=== PATIENT | male | born 1955 | race Caucasian/White ===

== ENCOUNTER 2021-01-12 06:54 | Day surgery (SDC) | payer BC, MEDICARE ==
[2021-01-08 09:51] VITALS: BMI 32.3
[2021-01-12 07:17] VITALS: RESP 16; TEMP 97.5
[2021-01-12] MEDS ORDERED: LACTATED RINGERS 1,000 ML IV ONE (07:20)
[2021-01-12] MEDS ORDERED: PROPOFOL 10 MG/ML 20 ML VIAL IV ONE (07:26)
--- NOTE | 2021-01-12 07:56 | P.PCN ---
Date of Procedure: 01/12/21 Description of Procedure: BRIEF HISTORY: Patient is a 65-year-old male presented for outpatient colonoscopy for screening for blood and neoplasm of the colon. Patient reports last colonoscopy approximately 10 years ago. No change in bowel habit, blood per rectum or family history of colon cancer reported. PROCEDURE PERFORMED: Colonoscopy with polypectomy. PREOPERATIVE DIAGNOSIS: . ESTIMATED BLOOD LOSS: Minimal. IV sedation per Anesthesia. PROCEDURE: After informed consent was obtained, the patient, was brought into the endoscopy unit. IV sedation was administered by Anesthesia under continuous monitoring. Digital rectal examination was normal. Initially the Olympus CF-190 flexible video colonoscope was then inserted in the rectum, gradually advanced into the cecum without any difficulty. Careful examination was performed as the scope was gradually being withdrawn. Ileocecal valve and the appendiceal orifice were visualized and appeared normal. Prep was excellent. Mucosa of the cecum, ascending colon, transverse colon, descending colon, sigmoid colon, and rectum appeared normal, except for a diminutive 1 mm rectal polyp removed with cold forcep polypectomy. Retroflexion was performed in the rectum and no lesions were seen, low-grade internal hemorrhoids. The patient tolerated the procedure well. IMPRESSION: Diminutive rectal polyp removed with cold forceps. Internal hemorrhoids. RECOMMENDATIONS: Findings of this examination were discussed with the patient and his family. Okay to resume diet. Okay to resume medications. Await pathology from polypectomy. Recommend repeat colonoscopy in 7 years for polyp, or 10 years if pathology is suggestive of hyperplastic polyp.
[2021-01-12 08:13] VITALS: BP 106/69; PULSE 77
== END 2021-01-12 08:49 | disposition home or self-care (01) ==
LOC: ORWHC2ENDO 06:54
PROVIDERS: ATTEND Internal Medicine
DX: Z12.11 Encounter for screening for malignant neoplasm of colon (principal); K62.1 Rectal polyp; K64.8 Other hemorrhoids; Z87.891 Personal history of nicotine dependence; Z90.89 Acquired absence of other organs; Z98.890 Other specified postprocedural states; Z87.19 Personal history of other diseases of the digestive system; Z97.2 Presence of dental prosthetic device (complete) (partial); Z79.82 Long term (current) use of aspirin; Z79.899 Other long term (current) drug therapy; Z91.09 Other allergy status, other than to drugs and biological substances
CPT/HCPCS: 88305; 45380; J2704

== ENCOUNTER → 2021-03-27 | Outpatient (CLI) | payer MEDICARE ==
--- NOTE | 2021-03-27 15:41 | US ---
EXAMINATION TYPE: US carotid duplex BILAT DATE OF EXAM: 03/27/2021 COMPARISON: NONE CLINICAL HISTORY: R09.89 Other specified symptoms and signs involving. Bruit EXAM MEASUREMENTS: RIGHT: Peak Systolic Velocity (PSV) cm/sec ----- Right CCA: 79.3 ----- Right ICA: 219.8 ----- Right ECA: 173.3 ICA/CCA ratio: 2.8 RIGHT: End Diastole cm/sec ----- Right CCA: 24.1 ----- Right ICA: 64.1 ----- Right ECA: 31.6 LEFT: Peak Systolic Velocity (PSV) cm/sec ----- Left CCA: 126.9 ----- Left ICA: 147.8 ----- Left ECA: 143.1 ICA/CCA ratio: 1.2 LEFT: End Diastole cm/sec ----- Left CCA: 29.3 ----- Left ICA: 50.2 ----- Left ECA: 15.3 VERTEBRALS (direction of flow): Right Vertebral: Antegrade Left Vertebral: Antegrade Rhythm: Normal Bilateral elevated velocities. IMPRESSION: 1. Bilateral atheromatous plaquing contributing to severe stenosis greater than 70%, of the right int ernal carotid artery and moderate stenosis, between 50 and 69%, of left internal carotid artery. NASCET criteria was used in interpretation of this exam? Criteria for Assigning % of Stenosis / Diameter reduction (Estimation based on the indirect measurements of the internal carotid artery velocities (ICA PSV). 1. Normal (no stenosis)=ICA PSV < 125 cm/s: ratio < 2.0: ICA EDV<40 cm/s. 2. Less than 50% stenosis=ICA PSV < 125 cm/s: ratio < 2.0: ICA EDV<40 cm/s. 3. 50 to 69% stenosis=ICA PSV of 125 to 230 cm/s: ration 2.0 ? 4.0: ICA EDV 40-100 cm/s. 4. Greater than 70% stenosis to near occlusion= ICA PSV > 230 cm/s: ratio > 4.0: ICA EDV > 100 cm/s. 5. Near occlusion= ICA PSV velocities may be low or undetectable: variable ratio and ICA EDV. 6. Total occlusion=unable to detect flow.
--- NOTE | 2021-03-27 15:53 | US ---
EXAMINATION TYPE: US duplex aorta DATE OF EXAM: 03/27/2021 COMPARISON: NONE CLINICAL HISTORY: Z13.6 Screening for cardiovascular disorders. AAA screening EXAM MEASUREMENTS: Abdominal Aorta: Proximal: 2.6 x 2.0 cm Mid: 2.3 x 1.8 cm Distal: 1.8 x 1.5 cm Bifurcation: Right: 1.0 cm Left: 1.6 cm. This has some fusiform prominence. IMPRESSION: 1. No abdominal aortic aneurysm by ultrasound. 2. There may be some fusiform prominence of the left common iliac artery
== END | disposition home or self-care (01) ==
LOC: RADUSWWP 14:11
PROVIDERS: ATTEND Family Medicine
DX: Z13.6 Encounter for screening for cardiovascular disorders (principal); I65.23 Occlusion and stenosis of bilateral carotid arteries
CPT/HCPCS: 93880; 93979

== ENCOUNTER → 2021-05-06 | Outpatient (CLI) | payer MEDICARE ==
[2021-05-06 12:09] LABS: African American GFR (CKD) >90 (>60 ml/min/1.73 sqM); Blood Urea Nitrogen 18 mg/dL (9-20); Non-African American GFR(CKD) 86 (>60 ml/min/1.73 sqM)
--- NOTE | 2021-05-06 13:30 | CT ---
EXAMINATION TYPE: CT angio neck DATE OF EXAM: 05/06/2021 HISTORY: Carotid stenosis, abnormal ultrasound COMPARISON: Carotid ultrasound March 27, 2021. CT DLP: 440.0 mGycm. Automated Exposure Control for Dose Reduction was Utilized. TECHNIQUE: CTA scan of the neck is performed with IV Contrast, patient injected with 65 mL of Isovue 370, axial images are obtained, coronal and sagittal reformatted images are reviewed. MIP Images are created on CT scanner and reviewed. 3D reconstructed images are created on an independent workstatio n and reviewed. FINDINGS: Carotid/Vascular Structures: Mild peripheral plaque in the aortic arch. There is a 4 vessel origin fr om aortic arch which is normal variant. No significant stenosis. Normal origin right common carotid a rtery from right brachiocephalic artery. No significant plaque or stenosis along the course of the co mmon carotid arteries bilaterally. The right carotid bulb there is moderate to severe mixed plaque ex tending into proximal internal carotid artery causing stenosis with luminal diameter narrowing to 2.2 mm in image 8 of the reconstruction image and lumen diameter reconstituted to 5.2 mm superior to thi s . Significant stenosis near complete occlusion at origin of right external carotid artery is noted. Remainder of right internal carotid artery shows mild to moderate calcified plaque distally. Mild to moderate peripheral mixed plaque just past carotid bulb and proximal left internal carotid ar марина does not cause significant stenosis. There is patent left external carotid artery without signif icant plaque or stenosis. Mild calcified plaque distally is seen. There is a dominant right vertebral artery. Vertebral arteries are patent to basilar junction. No sig nificant stenosis. Other: Mild to moderate mucosal thickening involving the ethmoid sinuses bilaterally. Tiny dependent fluid in the right sphenoid and left maxillary sinus noted. There is levoconvex scoliosis centered upper to mid thoracic spine. IMPRESSION: No hemodynamically significant stenosis in the left internal carotid artery. Confirmation of hemodynamically significant stenosis in the proximal right internal carotid artery with stenosis measuring up to 60% on CTA Neck study less prominent than suspected on recent ultrasound. NASCET criteria was used in interpretation of this exam?
== END | disposition home or self-care (01) ==
LOC: RADCTMAIN 11:14
PROVIDERS: ATTEND Surgery
DX: I65.23 Occlusion and stenosis of bilateral carotid arteries (principal)
CPT/HCPCS: 82565; 84520; 70498; 36415; Q9967

== ENCOUNTER → 2022-11-30 | Outpatient (CLI) | payer MEDICARE ==
[2022-11-30 16:33] LABS: African American GFR (CKD) >90 (>60 ml/min/1.73 sqM); Blood Urea Nitrogen 15 mg/dL (9-20); Non-African American GFR(CKD) 82 (>60 ml/min/1.73 sqM)
--- NOTE | 2022-11-30 20:46 | CT ---
EXAMINATION TYPE: CT angio neck CT DLP: 452.4 mGycm, Automated exposure control for dose reduction was used. DATE OF EXAM: 11/30/2022 7:47 PM COMPARISON: Ultrasound carotid duplex 03/27/2021, 05/06/2021 CTA Neck. CLINICAL INDICATION:Male, 67 years old with history of I65.29 OCCLUSION AND STENOSIS, R/O occlusion o r stenosis. TECHNIQUE: Axially acquired helical CT angiogram of the head and neck was obtained with contrast. Axi al images are supplemented with 3D reconstructions which [facility] NASCET criteria used. Contrast used:100cc mL of Isovue 300 with IV Contrast, Oral contrast used: None. FINDINGS: CTA HEAD: No evidence of acute intracranial hemorrhage, mass effect, or midline shift. The ventricles, sulci, a nd cisterns are unremarkable. The visualized portions of the internal carotid arteries, middle cerebral arteries, anterior cerebral arteries, and posterior cerebral arteries are patent. Atherosclerosis of the intracranial internal c arotid arteries. No evidence for significant stenosis. The basilar and vertebral arteries are patent. CTA NECK: Right Carotid System: The common carotid and external carotid arteries are patent. There is approximately 50-60% stenosis a t the carotid bifurcation secondary to calcified/noncalcified plaquing. Additionally the proximal por tion of the internal carotid artery is also narrowed up to 50% secondary to noncalcified predominant plaque. The rest of the internal carotid artery is patent. Left Carotid System: The common carotid artery and external carotid artery are patent. The carotid bifurcation demonstrate s no evidence of hemodynamically significant stenosis. Calcified plaque at the internal carotid arter y proximal portion with less than 50% stenosis. The remaining portions of the internal carotid artery demonstrate normal size without significant narrowing. Vertebral arteries are patent without evidence hemodynamically significant stenosis. There is a 4 vessel aortic arch. The left vertebral artery is diminutive. The origin of the right dejan tebral artery is patent. Dominant right vertebral artery and diminutive left. The origins of the grea t vessels are patent. No evidence of hemodynamically significant stenosis. IMPRESSION: 1. No vascular occlusion identified. 2. No evidence of dissection of the cervical internal carotid arteries or vertebral arteries. 3. No evidence of intracranial high-grade stenosis or intracranial aneurysm. 4. Calcified and noncalcified plaque at the right bifurcation and proximal right internal carotid ar марина with 50-60% stenosis. Unchanged from prior on 05/06/2021. 5. Diminutive left vertebral artery originating off the aortic arch extending into the calvarium.
== END | disposition home or self-care (01) ==
LOC: RADCTMAIN 14:49
PROVIDERS: ATTEND Surgery
DX: I65.23 Occlusion and stenosis of bilateral carotid arteries (principal)
CPT/HCPCS: 82565; 84520; 70498; 36415; Q9967

== ENCOUNTER 2023-12-06 10:59 | Inpatient (IN) | payer MEDICARE ==
[2023-12-06 11:22] LABS: Basophils % (A) 0 %; Eosinophils # (A) 0.3 k/uL (0-0.7); Eosinophils % (A) 3 %; HCT 46.5 % (39.0-53.0); HGB 15.7 gm/dL (13.0-17.5); Lymphocytes # (A) 1.7 k/uL (1.0-4.8); Lymphocytes % (A) 17 %; MCH 30.4 pg (25.0-35.0); MCHC 33.8 g/dL (31.0-37.0); Mean Platelet Volume 8.7; Monocytes # (A) 0.6 k/uL (0-1.0); Monocytes % (A) 6 %; Neutrophils # (A) 6.8 k/uL (1.3-7.7); Neutrophils % (A) 71 %; Platelet Count 186 k/uL (150-450); RBC 5.17 m/uL (4.30-5.90); RDW 12.8 % (11.5-15.5); WBC 9.5 k/uL (3.8-10.6)
[2023-12-06 11:42] LABS: Partial Thromboplastin Time 26.8 sec (22.0-30.0); Prothrombin Time 11.1 sec (10.0-12.5)
--- NOTE | 2023-12-06 11:51 | XR ---
EXAMINATION TYPE: XR chest 2V DATE OF EXAM: 12/06/2023 11:38 AM CLINICAL INDICATION:Male, 68 years old with history of Chest Pain; COMPARISON: None TECHNIQUE: XR chest 2V Frontal and lateral views of the chest. FINDINGS: Lungs/Pleura: There is no evidence of pleural effusion, focal consolidation, or pneumothorax. Pulmonary vascularity: Unremarkable. Heart/mediastinum: Cardiomediastinal silhouette is unremarkable. Musculoskeletal: No acute osseous pathology. IMPRESSION: No acute cardiopulmonary disease/process.
[2023-12-06 12:00] LABS: ALT 19 U/L (4-49); AST 31 U/L (17-59); African American GFR (CKD) >90 (>60 ml/min/1.73 sqM); Albumin 4.6 g/dL (3.5-5.0); Alkaline Phosphatase 76 U/L (38-126); Anion Gap 11 mmol/L; Blood Urea Nitrogen 17 mg/dL (9-20); Calcium 9.6 mg/dL (8.4-10.2); Carbon Dioxide 23 mmol/L (22-30); Chloride 108 mmol/L (98-107); Glucose 113 mg/dL (74-99); Magnesium 1.7 mg/dL (1.6-2.3); Non-African American GFR(CKD) 86 (>60 ml/min/1.73 sqM); Potassium 4.3 mmol/L (3.5-5.1); Sodium 142 mmol/L (137-145); Total Bilirubin 0.7 mg/dL (0.2-1.3); Total Protein 7.8 g/dL (6.3-8.2)
[2023-12-06] MEDS ORDERED: NALOXONE 0.4 MG/ML 1 ML VIAL IV PRN (14:14)
--- NOTE | 2023-12-06 14:14 | ED ---
Chest Pain HPI - General Chief Complaint: Chest Pain Stated Complaint: chest pressure,SOB Time Seen by Provider: 12/06/23 11:05 Source: patient Mode of arrival: ambulatory Limitations: no limitations - History of Present Illness Initial Comments: 68-year-old male presents emergency department reporting chest pain. States has been going on for the past week. He has associated shortness of breath. Symptoms are worse with exertion. He does have history of carotid disease. Denies any history of coronary disease. He has never had a stress test or echo of his heart. He denies any calf pain or swelling. No history of DVT or PE. No recent travel. Denies pleuritic chest pain. denies any fevers. No other alleviating, precipitating modifying factors - Related Data Home Medications Medication Instructions Recorded Confirmed Aspirin 325 mg PO DAILY 01/08/21 12/06/23 Cetirizine HCl [Zyrtec] 10 mg PO DAILY PRN 12/06/23 12/06/23 Rosuvastatin [Crestor] 10 mg PO DAILY 12/06/23 12/06/23 traZODone HCL [Desyrel] 50 mg PO HS 12/06/23 12/06/23 Allergies Allergy/AdvReac Type Severity Reaction Status Date / Time adhesive tape Allergy BLISTERS Verified 12/06/23 13:35 ON SKIN -paper tape OK Review of Systems ROS Statement: Those systems with pertinent positive or pertinent negative responses have been documented in the HPI. ROS Other: All systems not noted in ROS Statement are negative. Past Medical History Past Medical History: Osteoarthritis (OA) History of Any Multi-Drug Resistant Organisms: None Reported Past Surgical History: Orthopedic Surgery, Tonsillectomy Additional Past Surgical History / Comment(s): BILATERAL FOOT SURGERY (HEELS S HATTERED), Past Anesthesia/Blood Transfusion Reactions: No Reported Reaction Past Psychological History: No Psychological Hx Reported Smoking Status: Former smoker Past Alcohol Use History: None Reported Past Drug Use History: None Reported - Past Family History Father Family Medical History: Cancer Additional Family Medical History / Comment(s): PROSTATE CANCER General Exam Limitations: no limitations General appearance: alert, in no apparent distress Head exam: Present: atraumatic, normocephalic, normal inspection Eye exam: Present: normal appearance, PERRL, EOMI. Absent: scleral icterus, conjunctival injection, periorbital swelling ENT exam: Present: normal exam, mucous membranes moist Neck exam: Present: normal inspection. Absent: tenderness, meningismus, lymphadenopathy Respiratory exam: Present: normal lung sounds bilaterally. Absent: respiratory distress, wheezes, rales, rhonchi, stridor Cardiovascular Exam: Present: regular rate, normal rhythm, normal heart sounds. Absent: systolic murmur, diastolic murmur, rubs, gallop, clicks GI/Abdominal exam: Present: soft, normal bowel sounds. Absent: distended, tenderness, guarding, rebound, rigid Extremities exam: Present: normal inspection, full ROM, normal capillary refill. Absent: tenderness, pedal edema, joint swelling, calf tenderness Back exam: Present: normal inspection Neurological exam: Present: alert, oriented X3, CN II-XII intact Psychiatric exam: Present: normal affect, normal mood Skin exam: Present: warm, dry, intact, normal color. Absent: rash Course Vital Signs 12/06/23 12/06/23 12/06/23 11:04 12:36 13:35 Temperature 98.1 F 97.9 F Pulse Rate 95 77 Pulse Rate [ 92 Radial] Respiratory 20 18 Rate Blood Pressure 171/94 167/81 O2 Sat by Pulse 99 98 Oximetry 12/06/23 12/06/23 12/06/23 15:00 18:47 20:37 Temperature 98 F 98 F 98.2 F Pulse Rate 76 74 68 Pulse Rate [ Radial] Respiratory 18 18 16 Rate Blood Pressure 154/73 149/77 148/78 O2 Sat by Pulse 97 97 96 Oximetry 12/07/23 12/07/23 03:00 06:13 Temperature Pulse Rate 83 73 Pulse Rate [ Radial] Respiratory 16 16 Rate Blood Pressure 142/72 126/74 O2 Sat by Pulse 95 98 Oximetry Chest Pain MDM - MDM Was pt. sent in by a medical professional or institution (, PA, FUR BLOWING MACHINE ATTENDANT, urgent care, hospital, or detention...) When possible be specific @ -No Did you speak to anyone other than the patient for history (EMS, parent, family, police, friend...)? What history was obtained from this source @ -No Did you review nursing and triage notes (agree or disagree)? Why? @ -I reviewed and agree with nursing and triage notes Were old charts reviewed (outside hosp., previous admission, EMS record, old EKG, old radiological studies, urgent care reports/EKG's, detention records)? Report findings @ -No old charts were reviewed Differential Diagnosis (chest pain, altered mental status, abdominal pain women, abdominal pain men, vaginal bleeding, weakness, fever, dyspnea, syncope, headache, dizziness, GI bleed, back pain, seizure, CVA, palpatations, mental health, musculoskeletal)? @ -Differential Chest Pain: Stable Angina, Unstable Angina, STEMI, NSTEMI Aortic Dissection, Pneumothorax, Musculoskeletal, Esophageal Spasm GERD, Cholecystitis, Pancreatitis, Zoster, th is is not meant to be an all-inclusive list. EKG interpreted by me (3pts min.). @ -Yes and demonstrates sinus rhythm with a rate of 87. MS interval 136. QRS 79. QTc of 393. No acute ST segment elevations. Mild ST depression 2, 3, aVF as well as V4 through V6 X-rays interpreted by me (1pt min.). @ -Yes and demonstrates no acute process CT interpreted by me (1pt min.). @ -None done U/S interpreted by me (1pt. min.). @ -None done What testing was considered but not performed or refused? (CT, X-rays, U/S, labs)? Why? @ -None What meds were considered but not given or refused? Why? @ -None Did you discuss the management of the patient with other professionals (professionals i.e. , PA, FUR BLOWING MACHINE ATTENDANT, lab, RT, psych nurse, social media campaign manager, planisher, teacher, fundraising officer, case repairer)? Give summary @ -Spoke with Kane [place] Was smoking cessation discussed for >3mins.? @ -No Was critical care preformed (if so, how long)? @ -No Were there social determinants of health that impacted care today? How? (Homelessness, low income, unemployed, alcoholism, drug addiction, transportation, low edu. Level, literacy, decrease access to med. care, senior living, rehab)? @ -No Was there de-escalation of care discussed even if they declined (Discuss DNR or withdrawal of care, Hospice)? DNR status @ -No What co-morbidities impacted this encounter? (DM, HTN, Smoking, COPD, CAD, Cancer, CVA, ARF, Chemo, Hep., AIDS, mental health diagnosis, sleep apnea, morbid obesity)? @ -Hypertension Was patient admitted / discharged? Hospital course, mention meds given and route, prescriptions, significant lab abnormalities, going to OR and other pertinent info. @ -Upon arrival patient was seen and evaluated in room 30. Thorough history and physical exam was performed. IV access was established. Laboratory studies were conducted. Chest x-ray was performed. Troponin is negative however the patient does have concerning symptoms for coronary disease. Patient does have symptoms with exertion. I recommended admission for which patient was agreeable. Spoke with sound physicians who agreed to admit the patient with cardiology to consult Undiagnosed new problem with uncertain prognosis? @ -Yes Drug Therapy requiring intensive monitoring for toxicity (Heparin, Nitro, Insulin, Cardizem)? @ -No Were any procedures done? @ -No Diagnosis/symptom? @ -Acute chest pain, acute exertional dyspnea, concern for ACS Acute, or Chronic, or Acute on Chronic? @ -Acute Uncomplicated (without systemic symptoms) or Complicated (systemic symptoms)? @ -Complicated Side effects of treatment? @ -No Exacerbation, Progression, or Severe Exacerbation? @ -No Poses a threat to life or bodily function? How? (Chest pain, [place], [place], pneumonia, PE, COPD, DKA, ARF, appy, cholecystitis, CVA, Diverticulitis, Homicidal, Suicidal, threat to staff... and all critical care pts) @ -Yes as patient has typical features of coronary disease Disposition Clinical Impression: Chest pain, Exertional shortness of breath Disposition: ADMITTED IP TO THIS [facility] Condition: Stable Is patient prescribed a controlled substance at d/c from ED?: No Time of Disposition: 14:13 Decision to Admit Reason: Admit from EC Decision Date: 12/06/23 Decision Time: 14:13
[2023-12-06] MEDS ORDERED: NITROGLYCERIN SL TABS 0.4 MG TAB SUBLINGUAL PRN (16:32)
[2023-12-06] MEDS: MAGNESIUM OXIDE 400 MG TAB PO STA (18:21)
[2023-12-06] MEDS: ATORVASTATIN 20 MG TAB PO SCH (18:21)
--- NOTE | 2023-12-06 18:37 | P.HPIM ---
History of Present Illness H&P Date: 12/06/23 History of Presenting Illness: Patient is a very pleasant 68-year-old male with a past medical history of carotid artery stenosis with right internal carotid artery of 70% stenosis and left internal carotid 50 to 60% stenosed, hyperlipidemia, osteoarthritis, and former nicotine dependence quitting smoking in 1995. He presented to the emergency department with a chief complaint of chest pain, dizziness, and palpitations. Patient reports chest pain has been ongoing x 1 week accompanied by significant dizziness/lightheadedness, palpitations, and shortness of breath. Patient describes pain to chest as a tightening sensation and denies radiation of pain. He reports all of these symptoms are exacerbated with exertion. He denies experiencing any headache, changes in vision or hearing, cough or congestion, nausea or vomiting, diaphoresis, or experiencing any numbness/ti ngling/weakness/swelling in his extremities. Patient reports his carotid artery stenosis was recently diagnosed and he was supposed to follow-up with vascular surgeon to schedule carotid endarterectomy, his at bedside reports that she called the office today secondary to discovering her 's new complaints of chest pain, dizziness/lightheadedness, palpitations, and exertional dyspnea and was told by the PA at the office to go to the emergency department immediately as Dr. Quiroz is currently out of town and he will need to be evaluated by one of his associates. He underwent evaluation in the emergency department. Vital signs upon arrival show blood pressure 171/94, heart rate 95, respiratory rate 20, temp 98.1 F, and SpO2 of 99% on room air. EKG completed showing normal sin us rhythm 87 bpm with T wave inversion in lateral lead aVL and mild ST depression in lead II. Chest x-ray completed negative for acute cardiopulmonary process. Labs completed and reviewed. CBC unremarkable. Coagulation profile normal findings. BMP revealing mild hyperchloremia with chloride of 108 otherwise normal findings. Blood glucose was 113. Liver profile unremarkable. Magnesium slightly low at 1.7. Troponin negative at less than 0.012. Patient was admitted under our services with consultation to cardiology and vascular surgery. Heart score 5 Review of systems: Pertinent positives and negatives as discussed in HPI, a complete review of systems was performed and all other systems are negative. Physical exam: Vital signs reviewed and stable. General: Nontoxic, no distress and appears stated age. Derm: Skin warm and dry, normal coloration for ethnicity. Head: Atraumatic, normocephalic and symmetric. Eyes: EOMs intact, no lid lag, and anicteric sclera Mouth: no lip lesions, mucus membranes moist Cardiovascular: regular rate and rhythm with normal S1S2, no murmur, positive posterior tibial pulses bilaterally, and cap refill < 2 seconds. Lungs: Respirations even, regular, and unlabored on room air. Lungs CTA bilaterally, no rhonchi, no rales, no wheezing, and no accessory muscle usage. Abdominal: soft, nontender to palpation, no guarding, no appreciable or ganomegaly Ext: ROM intact. No gross muscle atrophy, no edema, no contractures Neuro: Speech clear, face symmetrical and CN II-XII grossly intact with no noted focal neuro deficits Psych: Alert and oriented to person, place, time, and situation. Appropriate and pleasant affect. Assessment and Plan of Care: Chest pain, rule out acute coronary event Carotid artery stenosis with reports of dizziness/lightheadedness Exertional dyspnea Hypertension Hyperlipidemia -Cardiology consulted, appreciate recommendations -Vascular surgery consulted, appreciate recommendations -Telemetry monitoring -Trend troponins -Cardiac diet, NPO at midnight -Continue aspirin 325 mg daily and atorvastatin 20 mg daily. Patient started on metoprolol 25 mg twice daily. -Lipid profile with a.m. labs. -Echocardiogram to be completed. Data and imaging reviewed: As stated above in HPI Also reviewed previous records of neck CTA and carotid Doppler study showing right carotid artery with greater than 70% stenosis and left carotid between 50 and 60% stenosis The patient is admitted with an anticipated less than 2 midnight stay for evaluation of chest pain with dizziness/lightheadedness and known carotid artery stenosis CODE STATUS: Full code DVT prophylaxis: Heparin Discussed with: Patient, patient's , RN, and ED physician Anticipated discharge date: Clinical course to determine Anticipated discharge place: Home Patient was seen independently by Nurse Practitioner. This document was prepared using [employer] dictation software. Please allow for errors in spanish linguist while rare they do occur. Kane Das NP rendered care for this patient independently, reviewed the findings and plan as documented in the note above. I did not physically speak with or examine the patient on this date. Past Medical History Past Medical History: Osteoarthritis (OA) History of Any Multi-Drug Resistant Organisms: None Reported Past Surgical History: Orthopedic Surgery, Tonsillectomy Additional Past Surgical History / Comment(s): BILATERAL FOOT SURGERY (HEELS SHATTERED), Past Anesthesia/Blood Transfusion Reactions: No Reported Reaction Past Psychological History: No Psychological Hx Reported Smoking Status: Former smoker Past Alcohol Use History: None Reported Past Drug Use History: None Reported - Past Family History Father Family Medical History: Cancer Additional Family Medical History / Comment(s): PROSTATE CANCER Medications and Allergies Home Medications Medication Instructions Recorded Confirmed Type Aspirin 325 mg PO DAILY 01/08/21 12/06/23 History Cetirizine HCl [Zyrtec] 10 mg PO DAILY PRN 12/06/23 12/06/23 History Rosuvastatin [Crestor] 10 mg PO DAILY 12/06/23 12/06/23 History traZODone HCL [Desyrel] 50 mg PO HS 12/06/23 12/06/23 History Allergies Allergy/AdvReac Type Severity Reaction Status Date / Time adhesive tape Allergy BLISTERS Verified 12/06/23 13:35 ON SKIN -paper tape OK Physical Exam Vitals: Vital Signs Temp Pulse Pulse Resp BP Pulse Ox 12/06/23 15:00 98 F 76 18 154/73 97 12/06/23 13:35 97.9 F 77 18 167/81 98 12/06/23 12:36 92 12/06/23 11:04 98.1 F 95 20 171/94 99 Intake and Output 12/06/23 12/06/23 12/06/23 06:59 14:59 22:59 Other: Weight 99.79 kg Results CBC & Chem 7: 12/13/23 04:00 12/13/23 04:00 Labs: Abnormal Lab Results - Last 24 Hours (Table) 12/06/23 Range/Units 11:15 Chloride 108 H (98-107) mmol/L Glucose 113 H (74-99) mg/dL
[2023-12-06] MEDS: traZODone HCL 50 MG TAB PO SCH (20:41)
[2023-12-06] MEDS: METOPROLOL TARTRATE 25 MG TAB PO SCH (20:41)
[2023-12-06] MEDS: HEPARIN SODIUM,PORCINE 5,000 UNIT/ML 1 ML VIAL SQ SCH (23:03)
[2023-12-07] MEDS: ASPIRIN 325 MG TAB PO SCH (08:15)
--- NOTE | 2023-12-07 09:46 | P.CRDCN ---
History of Present Illness Consult date: 12/07/23 Reason for Consult (text): Exertional dyspnea, chest pain History of present illness: History of present illness: This is a 68-year-old male with past medical history of hyperlipidemia, carotid artery stenosis with right 70% stenosis, left 50 to 60%, remote history of tobacco use. We have been asked to evaluate the patient for exertional dyspnea and chest pain. Patient presented to the emergency center with chest pain, dizziness, and palpitations. Patient describes chest pain as a pressure in the mid sternal area. It is subsequently gone away. Patient denies any known cardiac history and no previous cardiac workup. Patient has been started on metoprolol by attending. Echocardiogram, lipid profile, and consult with vascular surgery have been ordered. Discussed options of cardiac catheterization versus stress testing. Patient has chosen to pursue a stress testing. EKG sinus rhythm with ST depression on initial EKG which is somewhat resolved on repeat EKG Chest x-ray: No acute process CBC INR within normal limits. Sodium 142, potassium 4.3, creatinine 0.91. Troponin negative x 3. Liver function test are normal. Blood sugar 113. Magnesium 1.7. Home cardiac medications: Aspirin 325 mg daily, Crestor 10 mg daily Review Of Systems: At the time of my exam: CONSTITUTIONAL: Denies fever or chills. HEENT: Denies blurred vision, vision changes, or eye pain. Denies hemoptysis CARDIOVASCULAR: Denies chest pain. Denies orthopnea. Denies PND. Denies palpitations RESPIRATORY: Denies shortness of breath. GASTROINTESTINAL: Denies abdominal pain. Denies nausea or vomiting. HEMATOLOGIC: Denies bleeding disorders. GENITOURINARY: Denies any blood in urine. SKIN: Denies pruitis. Denies rash. Physical examination: Gen: This is a 68-year-old male in no acute distress VS: reviewed HEENT: Head is atraumatic, normocephalic. Pupils equal, round. Sclerae is anicteric. NECK: Supple. No JVD. LUNGS: Clear to auscultation. No wheezes or rhonchi. No intercostal retractions. HEART: Regular rate and rhythm. No murmur. ABDOMEN: Soft No tenderness. EXTREMITIES: No pedal edema. No calf tenderness. NEUROLOGICAL: Patient is awake, alert and oriented x3. Assessment: Atypical chest pain, acute coronary syndrome ruled out Carotid artery disease with dizziness and lightheadedness Exertional dyspnea rule out underlying coronary artery disease Hypertension Hyperlipidemia Plan: Resume patient's home cardiac medications Continue Lopressor 25 mg twice daily Obtain stress echo today Obtain 2-D echocardiogram and Doppler study to assess cardiac structure and function Further recommendations to follow based upon clinical course Thank you kindly for this consultation. Nurse practitioner note has been reviewed, I agree with documented findings and plan of care. Patient was seen and examined. Past Medical History Past Medical History: Hyperlipidemia, Osteoarthritis (OA) History of Any Multi-Drug Resistant Organisms: None Reported Past Surgical History: Orthopedic Surgery, Tonsillectomy Additional Past Surgical History / Comment(s): BILATERAL FOOT SURGERY (HEELS SHATTERED), Past Anesthesia/Blood Transfusion Reactions: No Reported Reaction Past Psychological History: No Psychological Hx Reported Smoking Status: Former smoker Past Alcohol Use History: None Reported Additional Past Alcohol Use History / Comment(s): STARTED SMOKING AT AGE 15 QUIT IN 1995 SMOKED 1PPD Past Drug Use History: None Reported - Past Family History Father Family Medical History: Cancer Additional Family Medical History / Comment(s): PROSTATE CANCER Medications and Allergies Home Medications Medication Instructions Recorded Confirmed Type Aspirin 325 mg PO DAILY 01/08/21 12/06/23 History Cetirizine HCl [Zyrtec] 10 mg PO DAILY PRN 12/06/23 12/06/23 History Rosuvastatin [Crestor] 10 mg PO DAILY 12/06/23 12/06/23 History traZODone HCL [Desyrel] 50 mg PO HS 12/06/23 12/06/23 History Allergies Allergy/AdvReac Type Severity Reaction Status Date / Time adhesive tape Allergy BLISTERS Verified 12/06/23 13:35 ON SKIN -paper tape OK Physical Exam Vitals: Vital Signs Temp Pulse Pulse Resp BP Pulse Ox 12/07/23 06:13 73 16 126/74 98 12/07/23 03:00 83 16 142/72 95 12/06/23 20:37 98.2 F 68 16 148/78 96 12/06/23 18:47 98 F 74 18 149/77 97 12/06/23 15:00 98 F 76 18 154/73 97 12/06/23 13:35 97.9 F 77 18 167/81 98 12/06/23 12:36 92 12/06/23 11:04 98.1 F 95 20 171/94 99 Intake and Output 12/06/23 12/07/23 12/07/23 22:59 06:59 14:59 Other: Weight 99.79 kg Results 12/06/23 11:15 12/06/23 11:15 Cardiac Enzymes 12/06/23 12/06/23 12/06/23 Range/Units 11:15 11:15 15:37 AST 31 (17-59) U/L Troponin I <0.012 <0.012 (0.000-0.034) ng/mL 12/06/23 Range/Units 18:26 AST (17-59) U/L Troponin I <0.012 (0.000-0.034) ng/mL Coagulation 12/06/23 Range/Units 11:15 PT 11.1 (10.0-12.5) sec APTT 26.8 (22.0-30.0) sec CBC 12/06/23 Range/Units 11:15 WBC 9.5 (3.8-10.6) k/uL RBC 5.17 (4.30-5.90) m/uL Hgb 15.7 (13.0-17.5) gm/dL Hct 46.5 (39.0-53.0) % Plt Count 186 (150-450) k/uL Comprehensive Metabolic Panel 12/06/23 Range/Units 11:15 Sodium 142 (137-145) mmol/L Potassium 4.3 (3.5-5.1) mmol/L Chloride 108 H (98-107) mmol/L Carbon Dioxide 23 (22-30) mmol/L BUN 17 (9-20) mg/dL Creatinine 0.91 (0.66-1.25) mg/dL Glucose 113 H (74-99) mg/dL Calcium 9.6 (8.4-10.2) mg/dL AST 31 (17-59) U/L ALT 19 (4-49) U/L Alkaline Phosphatase 76 (38-126) U/L Total Protein 7.8 (6.3-8.2) g/dL Albumin 4.6 (3.5-5.0) g/dL Current Medications Generic Name Dose Route Start Last Admin Trade Name Freq PRN Reason Stop Dose Admin Aspirin 325 mg 12/07/23 09:00 Aspirin 325 Mg Tab PO DAILY SAJI Atorvastatin Calcium 20 mg 12/06/23 16:30 12/06/23 18:21 Atorvastatin 20 Mg Tab PO 20 mg DAILY SAJI Administration Heparin Sodium (Porcine) 5,000 unit 12/07/23 00:00 12/06/23 23:03 Heparin Sodium,Porcine 5,000 Unit/Ml 1 Ml Vial SQ 5,000 unit Q8HR SAJI Administration Metoprolol Tartrate 25 mg 12/06/23 21:00 12/06/23 20:41 Metoprolol Tartrate 25 Mg Tab PO 25 mg BID SAJI Administration Naloxone HCl 0.2 mg 12/06/23 14:14 Naloxone 0.4 Mg/Ml 1 Ml Vial IV Q2M PRN Opioid Reversal Nitroglycerin 0.4 mg 12/06/23 16:32 Nitroglycerin Sl Tabs 0.4 Mg Tab SUBLINGUAL Q5M PRN Chest Pain Trazodone HCl 50 mg 12/06/23 21:00 12/06/23 20:41 Trazodone Hcl 50 Mg Tab PO 50 mg HS SAJI Administration Intake and Output 12/06/23 12/07/23 12/07/23 22:59 06:59 14:59 Other: Weight 99.79 kg 12/06/23 11:15 12/06/23 11:15
--- NOTE | 2023-12-07 10:24 | P.GSCN ---
History of Present Illness Consult date: 12/07/23 Reason for Consult: Dizziness, chest pain and palpitations Requesting physician: Kane Das History of present illness: This is a pleasant 68-year-old male with a history of carotid stenosis who follows with Dr. Quiroz for surveillance. He has a past medical history including hyperlipidemia and carotid stenosis. Right internal carotid artery stenosis approximately 50 to 60% and less than 50% stenosis of the left internal carotid artery per CT angiogram done 11/30/2022. This has been monitored with Dr. Perkins in the past. He is actually scheduled to see him next month. Patient had presented to the emergency department with complaints of shortness of breath followed by chest pressure and also complains of dizziness when going from lying in bed to standing or from sitting to standing. He denies any focal deficits. He is alert and oriented x 3. No weakness in his upper or lower extremities. Denies any shortness of breath or chest pain at this time. Review of Systems A 14 point review systems was completed all pertinent positives and negatives as stated in the HPI. Past Medical History Past Medical History: Hyperlipidemia, Osteoarthritis (OA) History of Any Multi-Drug Resistant Organisms: None Reported Past Surgical History: Orthopedic Surgery, Tonsillectomy Additional Past Surgical History / Comment(s): BILATERAL FOOT SURGERY (HEELS SHATTERED), Past Anesthesia/Blood Transfusion Reactions: No Reported Reaction Past Psychological History: No Psychological Hx Reported Smoking Status: Former smoker Past Alcohol Use History: None Reported Additional Past Alcohol Use History / Comment(s): STARTED SMOKING AT AGE 15 QUIT IN 1995 SMOKED 1PPD Past Drug Use History: None Reported - Past Family History Father Family Medical History: Cancer Additional Family Medical History / Comment(s): PROSTATE CANCER Medications and Allergies Home Medications Medication Instructions Recorded Confirmed Type Aspirin 325 mg PO DAILY 01/08/21 12/06/23 History Cetirizine HCl [Zyrtec] 10 mg PO DAILY PRN 12/06/23 12/06/23 History Rosuvastatin [Crestor] 10 mg PO DAILY 12/06/23 12/06/23 History traZODone HCL [Desyrel] 50 mg PO HS 12/06/23 12/06/23 History Allergies Allergy/AdvReac Type Severity Reaction Status Date / Time adhesive tape Allergy BLISTERS Verified 12/06/23 13:35 ON SKIN -paper tape OK Surgical - Exam Vital Signs Temp Pulse Resp BP Pulse Ox 98.1 F 95 20 171/94 99 12/06/23 11:04 12/06/23 11:04 12/06/23 11:04 12/06/23 11:12/06/23 11:04 General appearance: The patient is alert, oriented, appears in no acute distress. HET: Head is normocephalic and atraumatic. Pupils are equal and reactive. Neck: Supple. Heart: Regular. Lungs: Equal expansion, normal respiratory effort. Abdomen: Soft, nontender, nondistended. Extremities: Normal skin color and turgor. Neurological: No focal deficits. Strength and sensation are grossly intact. Results - Labs 12/06/23 11:15 12/06/23 11:15 Abnormal Lab Results - Last 24 Hours (Table) 12/06/23 Range/Units 11:15 Chloride 108 H (98-107) mmol/L Glucose 113 H (74-99) mg/dL Diabetes panel 12/06/23 Range/Units 11:15 Sodium 142 (137-145) mmol/L Potassium 4.3 (3.5-5.1) mmol/L Chloride 108 H (98-107) mmol/L Carbon Dioxide 23 (22-30) mmol/L BUN 17 (9-20) mg/dL Creatinine 0.91 (0.66-1.25) mg/dL Glucose 113 H (74-99) mg/dL Calcium 9.6 (8.4-10.2) mg/dL AST 31 (17-59) U/L ALT 19 (4-49) U/L Alkaline Phosphatase 76 (38-126) U/L Total Protein 7.8 (6.3-8.2) g/dL Albumin 4.6 (3.5-5.0) g/dL Calcium panel 12/06/23 Range/Units 11:15 Calcium 9.6 (8.4-10.2) mg/dL Albumin 4.6 (3.5-5.0) g/dL Pituitary panel 12/06/23 Range/Units 11:15 Sodium 142 (137-145) mmol/L Potassium 4.3 (3.5-5.1) mmol/L Chloride 108 H (98-107) mmol/L Carbon Dioxide 23 (22-30) mmol/L BUN 17 (9-20) mg/dL Creatinine 0.91 (0.66-1.25) mg/dL Glucose 113 H (74-99) mg/dL Calcium 9.6 (8.4-10.2) mg/dL Adrenal panel 12/06/23 Range/Units 11:15 Sodium 142 (137-145) mmol/L Potassium 4.3 (3.5-5.1) mmol/L Chloride 108 H (98-107) mmol/L Carbon Dioxide 23 (22-30) mmol/L BUN 17 (9-20) mg/dL Creatinine 0.91 (0.66-1.25) mg/dL Glucose 113 H (74-99) mg/dL Calcium 9.6 (8.4-10.2) mg/dL Total Bilirubin 0.7 (0.2-1.3) mg/dL AST 31 (17-59) U/L ALT 19 (4-49) U/L Alkaline Phosphatase 76 (38-126) U/L Total Protein 7.8 (6.3-8.2) g/dL Albumin 4.6 (3.5-5.0) g/dL Assessment and Plan Assessment: 1. Chest pressure 2. Shortness of breath 3. Dizziness 4. History of carotid stenosis, right ICA stenosis 50 to 60% 5. Hyperlipidemia Plan: Discussed with patient and primary medical team dizziness is not a symptom of carotid stenosis. He has 50 to 69% stenosis of the right ICA which is being monitored with outpatient surveillance with Dr. Perkins from vascular surgery. Recommend continued cardiac workup. Consider dizziness possible orthostatic hypotension. Consider orthostatic blood pressures. There is no indication for any vascular surgical workup or intervention. Patient to follow-up with Dr. Perkins next month as scheduled. Continue rest of medical management per primary medical team. Thank you for this consultation, we will sign off at this time. The impression and plan of care has been dictated as directed. I performed a history and examination of this patient, discussed the same with the dictator. I agree with the dictator's note ,documented as a scribe. Any additional findings or plans will be noted.
[2023-12-07 11:20] LABS: Basophils # (A) 0.05 X 10*3/uL (0.00-0.10); Basophils % (A) 0.6 %; Eosinophils # (A) 0.42 X 10*3/uL (0.04-0.35); Eosinophils % (A) 4.8 %; HCT 48.2 % (39.6-50.0); HGB 16.4 g/dL (13.0-17.0); Lymphocytes # (A) 1.92 X 10*3/uL (0.90-5.00); Lymphocytes % (A) 22.1 %; MCH 30.3 pg (27.0-32.0); MCV 89.1 FL (80.0-97.0); Mean Platelet Volume 10.8 FL (9.5-12.2); Monocytes # (A) 0.65 X 10*3/uL (0.20-1.00); Monocytes % (A) 7.5 %; NRBC Per 100 WBC 0 X 10*3/uL (0.00-0.01); Neutrophils # (A) 5.63 X 10*3/uL (1.80-7.70); Neutrophils % (A) 64.8 %; Platelet Count 203 X 10*3/uL (140-440); RBC 5.41 X 10*6/uL (4.40-5.60); RDW 12.9 % (11.5-14.5); WBC 8.69 X 10*3/uL (4.50-10.00)
[2023-12-07 11:30] LABS: Blood Urea Nitrogen 13.7 mg/dL (9.0-27.0); Carbon Dioxide 23.8 mmol/L (21.6-31.8); Chloride 105 mmol/L (96-109); Glucose 101 mg/dL (70-110); Potassium 4.1 mmol/L (3.5-5.5); Sodium 141 mmol/L (135-145)
--- NOTE | 2023-12-07 11:52 | CA ---
Stress Echo Report Gasper Crow Age: 68 Gender: M : 1955 Exam Date: 12/07/2023 10:30 Exam Location: [facility] Ht (in): 70 Wt (lb): 220 Ordering Physician: Liza Welsh Referring Physician: [id number] Scheduling Manager: Angeline Riddle RDCS Technologist Procedure CPT: Indication: Chest Pain ICD-9 Codes: Rhythm: Patient History: Chest pain,difficulty in breathing and vertigo. Cardiac Medications: Medications in past 24 hours: Contrast: Stress Results Protocol: Delmar Total dose(mL): Exercise Duration (min:sec): 3.[address] Depression (mm): Angina Score: Reagan Score: METS: 5.2 Resting HR: 86 Resting BP: 144 / 79 Peak HR: 134 Peak BP: 185 / 86 Max Predicted HR: 152 88 % Max Predicted HR Target HR: 129 Double Product: [id number] Stress Summary: BP Response: Reason for Termination: Reached target heart rate or work-load Cardiac Symptoms: Slight chest pain ECG Analysis Resting ECG: Normal sinus rhythm normal axis normal intervals Stress ECG: Patient exercised for 3 and half minutes on Delmar protocol without chest pain there was [address] segment depression noted in the inferolateral leads Arrhythmia: Echo Analysis Resting Echo: Normal left ventricular size wall motion systolic function Peak Echo Analysis: There is hypokinesis involving anterior wall and septum suggestive of ischemia in LAD distribution MEASUREMENTS (Male/Female) Normal Values CONCLUSIONS Abnormal stress echo with poor exercise tolerance severe EKG changes and exercise induced wall motion abnormality Dr. Joaquín Barroso MD (Electronically Signed) Final Date: 07 December 2023 11:51
[2023-12-07] MEDS ORDERED: ALPRAZolam 0.25 MG TAB PO PRN (12:13)
[2023-12-07] MEDS ORDERED: ALPRAZolam 0.5 MG TAB PO PRN (12:13)
[2023-12-07] MEDS ORDERED: NITROGLYCERIN SL TABS 0.4 MG TAB SUBLINGUAL PRN (12:13)
[2023-12-07] MEDS ORDERED: HEPARIN SODIUM 1,000 UN/ML (10ML VL) IV PRN (12:18)
[2023-12-07 12:58] LABS: Basophils # (A) 0.1 k/uL (0-0.2); Basophils % (A) 1 %; Eosinophils # (A) 0.2 k/uL (0-0.7); Eosinophils % (A) 3 %; HCT 47.5 % (39.0-53.0); HGB 15.8 gm/dL (13.0-17.5); Lymphocytes # (A) 1.5 k/uL (1.0-4.8); Lymphocytes % (A) 17 %; MCH 30.8 pg (25.0-35.0); MCHC 33.3 g/dL (31.0-37.0); MCV 92.5 fL (80.0-100.0); Mean Platelet Volume 8.9; Monocytes # (A) 0.5 k/uL (0-1.0); Monocytes % (A) 5 %; Neutrophils # (A) 6.4 k/uL (1.3-7.7); Neutrophils % (A) 73 %; Platelet Count 183 k/uL (150-450); RBC 5.14 m/uL (4.30-5.90); RDW 12.8 % (11.5-15.5); WBC 8.8 k/uL (3.8-10.6)
[2023-12-07] MEDS: NITROGLYCERIN OINT 1 INCH/GM PACKET TOPICAL SCH (13:07)
[2023-12-07] MEDS: HEPARIN SODIUM 1,000 UN/ML (10ML VL) IV ONE (13:10)
[2023-12-07] MEDS: HEPARIN SOD,PORK IN 0.45% NACL 25,000 UNIT in 0.45% NACL 1 250ML.BAG IV SCH (13:11)
[2023-12-07 13:15] LABS: Partial Thromboplastin Time 27.4 sec (22.0-30.0); Prothrombin Time 10.8 sec (10.0-12.5)
--- NOTE | 2023-12-07 16:53 | P.PN ---
Subjective Progress Note Date: 12/07/23 Hospital Course: Patient is a very pleasant 68-year-old male with a past medical history of carotid artery stenosis with right internal carotid artery of 70% stenosis and left internal carotid 50 to 60% stenosed, hyperlipidemia, osteoarthritis, and former nicotine dependence quitting smoking in 1995. He presented to the emergency department with a chief complaint of chest pain, dizziness, and palpitations. Patient reports chest pain has been ongoing x 1 week accompanied by significant dizziness/lightheadedness, palpitations, and shortness of breath. Patient describes pain to chest as a tightening sensation and denies radiation of pain. He reports all of these symptoms are exacerbated with exertion. He denies experiencing any headache, changes in vision or hearing, cough or congestion, nausea or vomiting, diaphoresis, or experiencing any numbness/tingling/weakness/swelling in his extremities. Patient reports his carotid artery stenosis was recently diagnosed and he was supposed to follow-up with vascular surgeon to schedule carotid endarterectomy, his at bedside reports that she called the office today secondary to discovering her 's new complaints of chest pain, dizziness/lightheadedness, palpitations, and exertional dyspnea and was told by the PA at the office to go to the emergency department immediately as Dr. Quiroz is currently out of town and he will need to be evaluated by one of his associates. He underwent evaluation in the emergency department. Vital signs upon arrival show blood pressure 171/94, heart rate 95, respiratory rate 20, temp 98.1 F, and SpO2 of 99% on room air. EKG completed showing normal sinus rhythm 87 bpm with T wave inversion in lateral lead aVL and mild ST depression in lead II. Chest x-ray completed negative for acute cardiopulmonary process. Labs completed and reviewed. CBC unremarkable. Coagulation profile normal findings. BMP revealing mild hyperchloremia with chloride of 108 otherwise normal findings. Blood glucose was 113. Liver profile unremarkable. Magnesium slightly low at 1.7. Troponin negative at less than 0.012. Patient was admitted under our services with consultation to cardiology and vascular surgery. Heart score 5. Troponins t rended overnight all negative at less than 0.012 x 3 draws. Cardiology consulted, took patient for cardiac stress test which is reported to be abnormal, with poor exercise tolerance and severe EKG changes. Patient scheduled for cardiac cath tomorrow morning. Physical exam: Pt seen at bedside upon return from stress test. He is visiting with family and currently denies any complaints or pain at this time. He denies dizziness, CP, palpitations and SOB. Vital signs reviewed and stable. General: Nontoxic, no distress and appears stated age. Derm: Skin warm and dry, normal coloration for ethnicity. Head: Atraumatic, normocephalic and symmetric. Eyes: EOMs intact, no lid lag, and anicteric sclera Mouth: no lip lesions, mucus membranes moist Cardiovascular: regular rate and rhythm with normal S1S2, no murmur, positive po sterior tibial pulses bilaterally, and cap refill < 2 seconds. Lungs: Respirations even, regular, and unlabored on room air. Lungs CTA bilaterally, no rhonchi, no rales, no wheezing, and no accessory muscle usage. Abdominal: soft, nontender to palpation, no guarding, no appreciable organomegaly Ext: ROM intact. No gross muscle atrophy, no edema, no contractures Neuro: Speech clear, face symmetrical and CN II-XII grossly intact with no noted focal neuro deficits Psych: Alert and oriented to person, place, time, and situation. Appropriate and pleasant affect. Assessment and Plan of Care: Chest pain, rule out acute coronary event Carotid artery stenosis with reports of dizziness/lightheadedness Exertional dyspnea Hypertension Hyperlipidemia -Cardiology consulted, took patient for cardiac stress test which is reported to be abnormal, with poor exercise tolerance and severe EKG changes., -Vascular surgery consulted, appreciate recommendations -Telemetry monitoring -Trend troponins -Cardiac diet, NPO at midnight -Continue aspirin 325 mg daily and atorvastatin 20 mg daily. Patient started on metoprolol 25 mg twice daily. -Lipid profile with a.m. labs. -Echocardiogram to be completed. Data and imaging reviewed: Troponins trended overnight all negative at less than 0.012 x 3 draws. -Cardiac stress test report reviewed reported to be abnormal, with poor exercise tolerance and severe EKG changes. CODE STATUS: Full code DVT prophylaxis: Heparin Anticipated discharge date: Clinical course to determine Anticipated discharge place: Home Patient was seen independently by Nurse Practitioner. This document was prepared using [employer] dictation software. Please allow for errors in slot machine key person while rare they do occur. I reviewed the documentation as provided by the GREG above, who is the original author of this note. I agree with the documented assessment and plan, with the following changes: none Objective - Vital Signs Vital signs: Vital Signs Temp 97.4 F L 12/07/23 07:48 Pulse 76 12/07/23 07:48 Resp 16 12/07/23 07:48 BP 139/76 12/07/23 07:48 Pulse Ox 98 12/07/23 07:48 FiO2 Intake & Output 12/06/23 12/07/23 12/07/23 18:59 06:59 18:59 Weight 99.79 kg 99.79 kg - Labs CBC & Chem 7: 12/09/23 11:07 12/09/23 11:07 Labs: Abnormal Lab Results - Last 24 Hours (Table) 12/06/23 Range/Units 11:15 Chloride 108 H (98-107) mmol/L Glucose 113 H (74-99) mg/dL
--- NOTE | 2023-12-07 17:53 | CA ---
Transthoracic Echo Report Name: Gasper Crow Age: 68 Gender: M : 1955 Exam Date: 12/06/2023 16:57 Exam Location: [facility] Ht (in): 70 Wt (lb): 220 Ordering Physician: Kane Das Attending/Referring Phys: Automobile Glass Technician Alicia Garcia RDCS Procedure CPT: Indications: Evaluate function and structure Cardiac Hx: Technical Quality: Good Contrast 1: Total Dose (mL): Contrast 2: Total Dose (mL): MEASUREMENTS (Male / Female) Normal Values 2D ECHO LV Diastolic Diameter PLAX 4.0 cm 4.2 - 5.9 / 3.9 - 5.3 cm LV Systolic Diameter PLAX 2.5 cm IVS Diastolic Thickness 1.3 cm 0.6 - 1.0 / 0.6 - 0.9 cm LVPW Diastolic Thickness 1.1 cm 0.6 - 1.0 / 0.6 - 0.9 cm LV Relative Wall Thickness 0.6 RV Internal Dim ED PLAX 3.2 cm LA Systolic Diameter LX 3.6 cm 3.0 - 4.0 / 2.7 - 3.8 cm LV Diastolic Volume MOD 4C 105.6 cm??? LV Systolic Volume MOD 4C 50.3 cm??? LV Ejection Fraction MOD 4C 52.4 % LV Cardiac Index MOD 4C 1647.9 cm???/min???m??? LV Diastolic Length 4C 7.9 cm LV Systolic Length 4C 6.4 cm LV Diastolic Volume MOD 2C 60.1 cm??? LV Systolic Volume MOD 2C 30.7 cm??? LV Ejection Fraction MOD 2C 49.0 % LV Cardiac Index MOD 2C 878.1 cm???/min???m??? LV Diastolic Length 2C 7.4 cm LV Systolic Length 2C 6.1 cm LA Volume 46.0 cm??? 18 - 58 / 22 - 52 cm??? LA Volume Index 20.5 cm???/m??? 16 - 28 cm???/m??? M-MODE Aortic Root Diameter MM 3.5 cm MV E Point Septal Separation 0.3 cm AV Cusp Separation MM 2.3 cm DOPPLER AV Peak Velocity 83.5 cm/s AV Peak Gradient 2.8 mmHg MV Area PHT 2.9 cm??? Mitral E Point Velocity 76.1 cm/s Mitral A Point Velocity 78.8 cm/s Mitral E to A Ratio 1.0 MV Deceleration Time 262.4 ms TR Peak Velocity 229.6 cm/s TR Peak Gradient 21.1 mmHg Right Ventricular Systolic Press 26.0 mmHg FINDINGS Left Ventricle Left ventricular ejection fraction is estimated at 50-55 %. Left ventricular cavity size normal. Mildly increased septal wall thickness. Right Ventricle Normal right ventricular size. Right ventricular systolic pressure within normal limits. Right Atrium Normal right atrial size. Left Atrium Normal left atrial size. Mitral Valve Mitral valve thickened. Mitral annular calcification. Trace mitral regurgitation. Aortic Valve Trileaflet aortic valve. Thickened aortic valve without stenosis. Tricuspid Valve Structurally normal tricuspid valve. Mild tricuspid regurgitation. Pulmonic Valve Structurally normal pulmonic valve. Trace to mild pulmonic regurgitation. Pericardium No pericardial effusion. Aorta Normal size aortic root and proximal ascending aorta. CONCLUSIONS Normal LV systolic function Previewed by: Dr. Joaquín Barroso MD (Electronically Signed) Final Date: 07 December 2023 17:52
[2023-12-07] MEDS: ACETAMINOPHEN TAB 500 MG TAB PO PRN (20:24)
[2023-12-08 06:02] LABS: Glucose,Whole Blood 112 mg/dL (70-110)
--- NOTE | 2023-12-08 06:20 | P.PN ---
Subjective Progress Note Date: 12/08/23 Hospital Course: Patient is a very pleasant 68-year-old male with a past medical history of carotid artery stenosis with right internal carotid artery of 70% stenosis and left internal carotid 50 to 60% stenosed, hyperlipidemia, osteoarthritis, and former nicotine dependence quitting smoking in 1995. He presented to the emergency department with a chief complaint of chest pain, dizziness, and palpitations. Patient reports chest pain has been ongoing x 1 week accompanied by significant dizziness/lightheadedness, palpitations, and shortness of breath. Patient describes pain to chest as a tightening sensation and denies radiation of pain. He reports all of these symptoms are exacerbated with exertion. He denies experiencing any headache, changes in vision or hearing, cough or congestion, nausea or vomiting, diaphoresis, or experiencing any numbness/tingling/weakness/swelling in his extremities. Patient reports his carotid artery stenosis was recently diagnosed and he was supposed to follow-up with vascular surgeon to schedule carotid endarterectomy, his at bedside reports that she called the office today secondary to discovering her 's new complaints of chest pain, dizziness/lightheadedness, palpitations, and exertional dyspnea and was told by the PA at the office to go to the emergency department immediately as Dr. Quiroz is currently out of town and he will need to be evaluated by one of his associates. He underwent evaluation in the emergency department. Vital signs upon arrival show blood pressure 171/94, heart rate 95, respiratory rate 20, temp 98.1 F, and SpO2 of 99% on room air. EKG completed showing normal sinus rhythm 87 bpm with T wave inversion in lateral lead aVL and mild ST depression in lead II. Chest x-ray completed negative for acute cardiopulmonary process. Labs completed and reviewed. CBC unremarkable. Coagulation profile normal findings. BMP revealing mild hyperchloremia with chloride of 108 otherwise normal findings. Blood glucose was 113. Liver profile unremarkable. Magnesium slightly low at 1.7. Troponin negative at less than 0.012. Patient was admitted under our services with consultation to cardiology and vascular surgery. Heart score 5. Troponins t rended overnight all negative at less than 0.012 x 3 draws. Cardiology consulted, took patient for cardiac stress test which is reported to be abnormal, with poor exercise tolerance and severe EKG changes. Patient scheduled for cardiac cath tomorrow morning. Subjective: Patient was seen and examined at bedside today, has no complaints of pain, palpitations, dizziness while lying down. Patient does report that he continues to have dizziness upon sitting or standing. Pending left heart catheterization today Physical exam: Gen: In NAD, non-toxic HEENT: normocephalic, atraumatic, hearing acuity is intant, mucous membranes moist CVS: perfusing all extremities well, no pitting edema, Respiratory: symmetric chest expansion, no accessory muscle use, GI: soft, NTTP, ND, : no suprapubic tenderness, no CVA tenderness MSK/Derm: no rashes, cyanosis Neuro: CN II-XII intact, no motor weakness, Psych: cooperative, euthymic mood, judgment and insight is intact Assessment and Plan of Care: Chest pain, rule out acute coronary event Carotid artery stenosis with reports of dizziness/lightheadedness Exertional dyspnea Hypertension Hyperlipidemia -Cardiology consulted, took patient for cardiac stress test which is reported to be abnormal, with poor exercise tolerance and severe EKG changes., -Vascular surgery consulted, appreciate recommendations, outpatient follow-up -Telemetry monitoring -Cardiac diet, NPO at midnight -Continue aspirin 325 mg daily. Atorvastatin increased to 80 mg at bedtime. Patient started on metoprolol 25 mg twice daily. -Heparin drip, continue to monitor PTT for toxicity -Lipid profile with a.m. labs. -Echocardiogram demonstrates ejection fraction of 50 to 55% with mildly increase d septal wall thickness, normal RVSP; stress echo did demonstrate wall motion abnormality in the distribution of the LAD CODE STATUS: Full code DVT prophylaxis: Heparin Anticipated discharge date: Clinical course to determine Anticipated discharge place: Home This document was prepared using [employer] dictation software. Please allow for errors in judge's clerk while rare they do occur. Objective - Vital Signs Vital signs: Vital Signs Temp 97.9 F 12/08/23 01:53 Pulse 67 12/08/23 01:53 Resp 16 12/08/23 01:53 BP 136/72 12/08/23 01:53 Pulse Ox 96 12/08/23 01:53 FiO2 Intake & Output 12/07/23 12/07/23 12/08/23 06:59 18:59 06:59 Intake Total 358 Balance 358 Weight 99.79 kg 98.1 kg Intake: Oral 358 Other: Voiding Method Toilet # Voids 2 1 - Labs CBC & Chem 7: 12/07/23 12:31 12/07/23 08:38 Labs: Abnormal Lab Results - Last 24 Hours (Table) 12/07/23 12/07/23 12/07/23 Range/Units 08:38 08:38 20:16 Eosinophils # 0.42 H (0.04-0.35) X 10*3/uL APTT 52.8 H (22.0-30.0) sec Anion Gap 12.20 H (4.00-12.00) mmol/L POC Glucose (mg/dL) (70-110) mg/dL 12/08/23 Range/Units 06:00 Eosinophils # (0.04-0.35) X 10*3/uL APTT (22.0-30.0) sec Anion Gap (4.00-12.00) mmol/L POC Glucose (mg/dL) 112 H (70-110) mg/dL
[2023-12-08] MEDS: ATORVASTATIN 80 MG TAB PO ONE (06:28)
[2023-12-08] MEDS: ASPIRIN 325 MG TAB PO ONE (06:28)
[2023-12-08] MEDS ORDERED: HEPARIN SODIUM,PORCINE (1 ML) 2,500 UNIT in SODIUM CHLORIDE 0.9% 250 ML IRRIGATION PRN (07:00)
[2023-12-08] MEDS ORDERED: HEPARIN SODIUM,PORCINE 10,000 UNIT in SODIUM CHLORIDE 0.9% 1,000 ML IRRIGATION PRN (07:00)
[2023-12-08] MEDS: ATORVASTATIN 80 MG TAB PO SCH (07:43)
[2023-12-08 08:50] LABS: Basophils # (A) 0.06 X 10*3/uL (0.00-0.10); Basophils % (A) 0.7 %; Eosinophils # (A) 0.43 X 10*3/uL (0.04-0.35); Eosinophils % (A) 4.9 %; HCT 46.4 % (39.6-50.0); Lymphocytes # (A) 2.81 X 10*3/uL (0.90-5.00); Lymphocytes % (A) 32.1 %; MCH 30.3 pg (27.0-32.0); MCHC 34.5 g/dL (32.0-37.0); MCV 87.9 FL (80.0-97.0); Mean Platelet Volume 11.5 FL (9.5-12.2); Monocytes # (A) 0.64 X 10*3/uL (0.20-1.00); Monocytes % (A) 7.3 %; NRBC Per 100 WBC 0 X 10*3/uL (0.00-0.01); Neutrophils # (A) 4.79 X 10*3/uL (1.80-7.70); Neutrophils % (A) 54.8 %; Platelet Count 214 X 10*3/uL (140-440); RBC 5.28 X 10*6/uL (4.40-5.60); RDW 12.7 % (11.5-14.5); WBC 8.75 X 10*3/uL (4.50-10.00)
[2023-12-08 09:26] LABS: African American GFR (CKD) >90 (>60 ml/min/1.73 sqM); Anion Gap 9 mmol/L; Blood Urea Nitrogen 14 mg/dL (9-20); Calcium 9.3 mg/dL (8.4-10.2); Carbon Dioxide 21 mmol/L (22-30); Chloride 110 mmol/L (98-107); Glucose 114 mg/dL (74-99); Non-African American GFR(CKD) 89 (>60 ml/min/1.73 sqM); Sodium 140 mmol/L (137-145)
[2023-12-08] MEDS ORDERED: VERAPAMIL 2.5 MG/ML 2 ML AMP ONE (10:24)
[2023-12-08] MEDS ORDERED: HEPARIN SODIUM 1,000 UN/ML (10ML VL) ONE (10:25)
[2023-12-08] MEDS ORDERED: fentaNYL (PF) 50 MCG/ML 2 ML AMP ONE (10:25)
[2023-12-08] MEDS ORDERED: LIDOCAINE 1% INJ 10MG/ML (20 ML MDV) ONE (10:25)
[2023-12-08] MEDS: SODIUM CHLORIDE 0.9% 1,000 ML IV ONE (10:46)
[2023-12-08] MEDS: fentaNYL (PF) 50 MCG/ML 2 ML AMP IVP ONE (10:48)
[2023-12-08] MEDS: MIDAZOLAM 2 MG/2 ML VIAL IVP ONE (10:48)
[2023-12-08] MEDS: LIDOCAINE 1% INJ 10MG/ML (20 ML MDV) SQ ONE (10:51)
[2023-12-08] MEDS: VERAPAMIL SYRINGE (5 MG/10 ML) INTRAARTER ONE (10:55)
[2023-12-08] MEDS: HEPARIN SODIUM 1,000 UN/ML (10ML VL) IVP ONE (10:57)
[2023-12-08] MEDS: IOPAMIDOL-370 100ML BTL INJ ONE (11:13)
[2023-12-08 11:24] LABS: INR 1.07 sec (0.93-1.11); Prothrombin Time 11.5 sec (9.9-11.9)
--- NOTE | 2023-12-08 12:11 | P.GSCN ---
History of Present Illness Consult date: 12/08/23 Reason for Consult: Coronary artery disease with left main disease Requesting physician: Joaquín Barroso History of present illness: This is a 68-year-old gentleman who follows outpatient with Dr. Fournier for primary care. He has a previous medical history of known carotid artery stenosis, hypertension, hyperlipidemia, osteoarthritis, and previous tobacco dependence. He presented to [facility] emergency room with complaints of exertional shortness of breath and chest pain, relieved with rest which had been going on for approximately a week. In the emergency room chest x-ray revealed no acute cardiopulmonary process. EKG demonstrated sinus rhythm. Lab work was unremarkable except chloride of 108 and glucose of 113. Troponins were negative. He was admitted for evaluation and treatment with consultation placed to cardiology. Transthoracic echocardiogram was completed demonstrating normal left ventricular systolic function with EF 50 to 55%, trace mitral and mild tricuspid regurgitation. Stress echocardiogram was also completed which was abnormal demonstrating exercise-induced wall motion abnormality. Due to these findings the patient was recommended to undergo heart catheterization which was completed today by Dr. Colmenares and which revealed triple-vessel coronary artery disease with left main disease. Consultation was placed to Dr. Goldstein from cardiothoracic surgery for surgical revascularization recommendations. Review of Systems Review of systems was completed and was negative except as noted - Cardiovascular Reports as per HPI, Reports chest pain, Reports decreased exercise tolerance, Reports dyspnea on exertion Past Medical History Past Medical History: Coronary Artery Disease (CAD), Hyperlipidemia, Hypertension, Osteoarthritis (OA) History of Any Multi-Drug Resistant Organisms: None Reported Past Surgical History: Orthopedic Surgery, Tonsillectomy Additional Past Surgical History / Comment(s): BILATERAL FOOT SURGERY (HEELS SHATTERED), Past Anesthesia/Blood Transfusion Reactions: No Reported Reaction Past Psychological History: No Psychological Hx Reported Smoking Status: Former smoker Past Alcohol Use History: None Reported Additional Past Alcohol Use History / Comment(s): STARTED SMOKING AT AGE 15 QUIT IN 1995 SMOKED 1PPD Past Drug Use History: None Reported - Past Family History Father Family Medical History: Cancer Additional Family Medical History / Comment(s): PROSTATE CANCER Medications and Allergies Home Medications Medication Instructions Recorded Confirmed Type Aspirin 325 mg PO DAILY 01/08/21 12/06/23 History Cetirizine HCl [Zyrtec] 10 mg PO DAILY PRN 12/06/23 12/06/23 History Rosuvastatin [Crestor] 10 mg PO DAILY 12/06/23 12/06/23 History traZODone HCL [Desyrel] 50 mg PO HS 12/06/23 12/06/23 History Allergies Allergy/AdvReac Type Severity Reaction Status Date / Time adhesive tape Allergy BLISTERS Verified 12/06/23 13:35 ON SKIN -paper tape OK Surgical - Exam Vital Signs Temp Pulse Resp BP Pulse Ox 98.1 F 95 20 171/94 99 12/06/23 11:04 12/06/23 11:04 12/06/23 11:04 12/06/23 11:04 12/06/23 11:04 CONSTITUTIONAL: Awake and alert, appears comfortable, cooperative, well- developed, well-nourished, no pain, no acute distress EYES: Pupils equal, round, reactive to light, normal ocular movement ENT: Moist mucous membranes without oral lesions present NECK: No masses, no bruits, trachea midline RESPIRATORY: Lungs sounds clear to auscultation bilaterally. Respirations even, nonlabored. Currently on room air with oxygen saturation 97%. Strong cough. No chest wall deformities. No clubbing or cyanosis present CARDIOVASCULAR: S1, S2 present. Regular rate and rhythm, sinus rhythm on telemetry. Palpable peripheral pulses bilaterally. No edema present. No calf pain or tenderness noted. No significant lower extremity varicosities noted. Left radial Madhu's test less than 8 seconds. GASTROINTESTINAL: Abdomen soft, nontender, nondistended without masses or organomegaly noted. There is no rebound or guarding present. Active bowel sounds present 4 quadrants. GENITOURINARY: Deferred INTEGUMENTARY: Skin is warm and dry with evidence of good perfusion. NEUROLOGIC: Cranial nerves II through XII intact, normal coordination, no obvious motor or sensory deficits, speech is normal MUSKULOSKELETAL: Able to move all extremities, strength equal bilaterally, normal posture PSYCHIATRIC: Alert and oriented to person place and time, appropriate affect, intact judgment and insight Results - Labs 12/10/23 06:28 12/10/23 06:28 Abnormal Lab Results - Last 24 Hours (Table) 12/07/23 12/08/23 12/08/23 Range/Units 20:16 05:58 05:58 Eosinophils # 0.43 H (0.04-0.35) X 10*3/uL APTT 52.8 H 48.2 H (22.0-30.0) sec Chloride (98-107) mmol/L Carbon Dioxide (22-30) mmol/L Glucose (74-99) mg/dL POC Glucose (mg/dL) (70-110) mg/dL 12/08/23 12/08/23 Range/Units 05:58 06:00 Eosinophils # (0.04-0.35) X 10*3/uL APTT (22.0-30.0) sec Chloride 110 H (98-107) mmol/L Carbon Dioxide 21 L (22-30) mmol/L Glucose 114 H (74-99) mg/dL POC Glucose (mg/dL) 112 H (70-110) mg/dL Diabetes panel 12/08/23 Range/Units 05:58 Sodium 140 (137-145) mmol/L Potassium 4.0 (3.5-5.1) mmol/L Chloride 110 H (98-107) mmol/L Carbon Dioxide 21 L (22-30) mmol/L BUN 14 (9-20) mg/dL Creatinine 0.86 (0.66-1.25) mg/dL Glucose 114 H (74-99) mg/dL Calcium 9.3 (8.4-10.2) mg/dL Calcium panel 12/08/23 Range/Units 05:58 Calcium 9.3 (8.4-10.2) mg/dL Pituitary panel 12/08/23 Range/Units 05:58 Sodium 140 (137-145) mmol/L Potassium 4.0 (3.5-5.1) mmol/L Chloride 110 H (98-107) mmol/L Carbon Dioxide 21 L (22-30) mmol/L BUN 14 (9-20) mg/dL Creatinine 0.86 (0.66-1.25) mg/dL Glucose 114 H (74-99) mg/dL Calcium 9.3 (8.4-10.2) mg/dL Adrenal panel 12/08/23 Range/Units 05:58 Sodium 140 (137-145) mmol/L Potassium 4.0 (3.5-5.1) mmol/L Chloride 110 H (98-107) mmol/L Carbon Dioxide 21 L (22-30) mmol/L BUN 14 (9-20) mg/dL Creatinine 0.86 (0.66-1.25) mg/dL Glucose 114 H (74-99) mg/dL Calcium 9.3 (8.4-10.2) mg/dL - Imaging Chest x-ray: report reviewed, image reviewed EKG: image reviewed Additional studies: Heart catheterization and echocardiogram reviewed with Dr. Goldstein Assessment and Plan Assessment: Triple-vessel coronary artery disease, left main disease Known history of carotid artery stenosis being followed outpatient by Dr. Quiroz, remains asymptomatic Hypertension Hyperlipidemia Osteoarthritis Previous tobacco dependence Plan: The patient was seen and examined at the bedside with Dr. Goldstein. Chart/diagnostics reviewed. The usual perioperative course was discussed in detail with the patient and his family, risks and benefits were reviewed, all questions were answered. Preoperative testing was initiated. Once completed we will calculate STS risk score and discussed with the patient his family. Will complete 5 m walk test. Recommend to continue maximizing medical therapy with aspirin, statin, beta-poppy. Will start IV nitro low-dose for chest pain, which means patient is to be transferred to 3 . We will tentatively plan for off-pump myocardial revascularization with left internal mammary artery, left radial artery, and endoscopic vein harvest with ligation of the left atrial appendage by Dr. Goldstein on Tuesday, December 12, 2023 pending the outcome of testing. This was discussed between Dr. Goldstein and Dr. Barroso. Medical management of other comorbidities per internal medicine, cardiology. Will consult pulmonology for clearance. Thank you Dr. Barroso for this consult. I have personally seen and examined the patient, performed the documentation and the assessment and plan as written. Number of minutes spent on the visit: 30. ANASTACIA Carranza Attending Addendum: Pt seen and evaluated with BP above. Agree with her assessment and plan. This is a 68 year-old M who presents with anginal symptoms. Coronary angio reveals significant left main CAD. We will plan for CABG this admission. I spent 45 minutes reviewing the data and discussing plan of care with the team. Time with Patient: Greater than 30
--- NOTE | 2023-12-08 12:33 | CC ---
CARDIAC CATHETERIZATION REPORT INDICATIONS: Precordial chest pain with abnormal stress echo. PROCEDURE NOTE: After obtaining informed consent, left heart catheterization and coronary angiogram were performed via the right radial artery using standard Lorrie catheters. The patient tolerated the procedure well without any obvious immediate complications. The patient received moderate conscious sedation. Total sedation time was 20 minutes. Right radial artery access was obtained using Seldinger technique. A 6-[place] sheath was placed. Catheters and wires were floated into the ascending aorta under fluoroscopic guidance. The patient received verapamil and heparin per protocol. FINDINGS: 1. Hemodynamics: Central aortic pressure is 120/80 mm. 2. Left Ventriculogram: Left ventriculogram is not performed. 3. Angiographic Data: a.Right coronary artery is a large dominant vessel and it shows moderate area of stenosis involving the proximal right coronary artery, at its worst it seems to be a 50% stenosis. The left main coronary artery appears calcified. There is 90% focal stenosis as it bifurcates into the circumflex coronary artery and left anterior descending coronary artery. Circumflex coronary artery gives off a large caliber OM branch and continues at the AV groove circ that has a focal 90% stenosis. There is a first OM branch, almost ramus intermedius that is free of stenosis. LAD gives off fair caliber diagonal branches and free of significant stenosis. CONCLUSIONS: 1. Severe left main stenosis, at its worst seems to be an 80% to 90% stenosis as it trifurcates into LAD, ramus intermedius, and circumflex coronary artery with a moderate stenosis involving proximal right coronary artery. 2. The patient has normal LV systolic function without any significant valvular heart disease on an echocardiogram. PLAN: I am going to consult Dr. Goldstein, cardiothoracic surgeon to evaluate the patient for surgical revascularization on this admission. I am going to resume the heparin over the next 4 hours. MMODL / IJN: [id number] /
[2023-12-08 13:00] LABS: INR 1.1 (<1.2); Partial Thromboplastin Time 89.3 sec (22.0-30.0); Prothrombin Time 11.8 sec (10.0-12.5)
--- NOTE | 2023-12-08 13:23 | US ---
EXAMINATION TYPE: US vein mapping BILAT DATE OF EXAM: 12/08/2023 12:48 PM COMPARISON: NONE CLINICAL INDICATION: Male, 68 years old with history of preop cardiac surgery; Preop SIDE PERFORMED: Bilateral TECHNIQUE: Lower extremity saphenous vein is examined and measured utilizing real time linear array sonography. DUPLEX FINDINGS: Greater Saphenous: Color flow seen Lesser Saphenous: Color flow seen Measurements in mm: Right Greater Saphenous: Groin: 7 x 6 mm High Thigh: 3 x 3 mm Mid Thigh: 3 x 2 mm Above Knee: 2 x 3 mm Knee: 3 x 1 mm Below Knee: 2 x 3 mm Mid Calf: 2 x 2 mm At Ankle: 1 x 2 mm Left Greater Saphenous: Groin: 7 x 8 mm High Thigh: 3 x 3 mm Mid Thigh: 4 x 4 mm Above Knee: 3 x 5 mm Knee: 2 x 3 mm Below Knee: 2 x 3 mm Mid Calf: 1 x 2 mm At Ankle: 1 x 1 mm IMPRESSION: 1. Bilateral GSV measurements listed above. 2. Performing surgeon to determine viability as conduit.
--- NOTE | 2023-12-08 13:24 | US ---
EXAMINATION TYPE: Pre-Operative Non-Invasive Evaluation of the hand for Potential Radial Artery Jan vance, Measurements only DATE OF EXAM: 12/08/2023 12:48 PM CLINICAL INDICATION: Male, 68 years old with history of measurements only; PREOP SIDE PERFORMED: Left TECHNIQUE: Radial artery is measured utilizing real time linear array sonography. Duplex Findings: Radial Artery: Color flow seen Measurements in mm, transverse view: Left Radial: Proximal: 2 x 3 mm Mid: 3 x 3 mm Distal: 3 x 3 mm IMPRESSION: 1. Left Radial artery measurements listed above. 2. Performing surgeon to determine viability as conduit.
[2023-12-08 14:40] LABS: T4, Free (Free Thyroxine) 1.27 ng/dL (0.78-2.19)
--- NOTE | 2023-12-08 14:46 | US ---
EXAMINATION TYPE: US arterial LE single level DATE OF EXAM: 12/08/2023 1:41 PM CLINICAL INDICATION: Male, 68 years old with history of Ankle Brachial Index (GABY); open heart History of: Smoker: previous Hypertension: No Diabetic: No Hyperlipidemia: Yes TIA/CVA: No Previous Vascular Surgery: No CAD: No VT: No Vascular Ulcers: No Claudication: No Gangrene: No Doppler Waveforms: Right: Multiphasic Left: Multiphasic Ankle-Brachial Indices: Right: 1.18 Left: 1.08 (Vessel hardening > 1.4; Normal 0.9 - 1.4, Moderate 0.7 - 0.9, Severe 0.5-0.7) Toe Brachial Indices: Right: 0.69 Left: 0.68 IMPRESSION: Ankle-brachial indices within normal limits bilaterally.
[2023-12-08] MEDS: NITROGLYCERIN-D5W PMX 50 MG in DEXTROSE/WATER 1 250ML.BAG IV SCH (15:25)
[2023-12-08] MEDS: HEPARIN SOD,PORK IN 0.45% NACL 25,000 UNIT in 0.45% NACL 1 250ML.BAG IV SCH (15:27)
--- NOTE | 2023-12-08 15:56 | CT ---
EXAMINATION TYPE: CT chest wo con DATE OF EXAM: 12/08/2023 COMPARISON: None HISTORY: assess aorta for clampability CT DLP: 362.8 mGycm, Automated exposure control for dose reduction was used. CONTRAST: Performed injected with 0 mL of Isovue 300. TECHNIQUE: Axial images were obtained at 5 mm thick sections. Reconstructed images are reviewed on [employer] 911 computer in the coronal plane. FINDINGS: Portion of the thyroid visualized is normal. No suspicious lung nodules or focal infiltrates are present. No enlarged mediastinal or hilar adenopathy is evident. The ascending aorta diameter at the level o f the main pulmonary artery is 3.6 cm. The main pulmonary artery diameter at the bifurcation is 2.2 cm. Minimal calcifications at the level of the aortic arch. Coronary artery calcifications present. S ome minimal calcification descending thoracic aorta. Limited CT sections are obtained through the upper abdomen. Abdomen is essentially unremarkable. IMPRESSION: 1. No acute pulmonary process. 2. Minimal scattered calcifications within the aorta
[2023-12-08 16:32] LABS: Hepatitis A Antibody IgM Nonreactive (Nonreactive); Hepatitis B Core IgM Nonreactive (Nonreactive); Hepatitis B Surface Antigen Nonreactive (Nonreactive); Hepatitis C IgG Antibody Nonreactive (Nonreactive)
[2023-12-08 16:47] LABS: Chol/HDL Ratio 3.47 Ratio; LDL Cholesterol,Calculated 84.6 mg/dL (0.0-131.0)
--- NOTE | 2023-12-09 09:14 | P.PN ---
Subjective Progress Note Date: 12/09/23 Principal diagnosis: Triple-vessel coronary artery disease, left main disease. Known history of carotid artery stenosis being followed outpatient by Dr. Quiroz, hypertension, hyperlipidemia, osteoarthritis, previous tobacco dependence The patient was seen and examined this morning sitting up in bed on the cardiac stepdown unit in no acute distress. Denies any chest pain or shortness of breath currently although he did have a quick burst of chest discomfort overnight which resolved without intervention. The patient was seen yesterday by Dr. Goldstein with recommendations for CABG this admission, tentatively scheduled for Tuesday. Preoperative testing was completed, patient remains low risk for surgery per STS risk score. 5 m walk test was completed yesterday by cardiac rehab, patient ambulated without difficulty. IV heparin and nitro infusing. No other new concerns. Objective - Vital Signs Vital signs: Vital Signs Temp 97.9 F 12/09/23 00:00 Pulse 75 12/09/23 04:00 Resp 18 12/09/23 04:00 BP 135/75 12/09/23 04:00 Pulse Ox 95 12/09/23 04:00 FiO2 Intake & Output 12/08/23 12/09/23 12/09/23 18:59 06:59 18:59 Intake Total 50 83.581 240 Balance 50 83.581 240 Intake: IV 50 Intake, IV Titration 83.581 Amount Heparin Sod,Pork in 0.45% 83.581 NaCl 25,000 unit In 0.45 % NaCl 1 250ml.bag @ 12 UNITS/KG/HR 11.772 mls/hr IV .[id number] [facility] Rx#: [id number] Oral 240 Other: Voiding Method Toilet Toilet # Voids 1 2 - Exam CONSTITUTIONAL: Appears comfortable, cooperative, no acute distress RESPIRATORY: Lungs sounds diminished bilaterally. Respirations even, nonlabored. Currently on room air with oxygen saturation 95%. Able to achieve 2000 mL on incentive spirometry. Strong cough. CARDIOVASCULAR: S1, S2 present. Regular rate and rhythm, sinus rhythm on telemetry. Palpable peripheral pulses bilaterally. No edema present. No calf pain or tenderness noted GASTROINTESTINAL: Abdomen soft, nontender, nondistended. Active bowel sounds present 4 quadrants. Tolerating diet. GENITOURINARY: Continues to void INTEGUMENTARY: Skin is warm and dry NEUROLOGIC: Cranial nerves II through XII intact MUSKULOSKELETAL: Able to move all extremities, strength equal bilaterally, gait normal PSYCHIATRIC: Alert and oriented to person place and time, appropriate affect, intact judgment and insight - Allied health notes Allied health notes reviewed: nursing - Labs CBC & Chem 7: 12/08/23 05:58 12/08/23 05:58 Labs: Abnormal Lab Results - Last 24 Hours (Table) 12/08/23 12/08/23 12/08/23 Range/Units 05:58 05:58 12:28 APTT 89.3 H (22.0-30.0) sec Chloride 110 H (98-107) mmol/L Carbon Dioxide 21 L (22-30) mmol/L Glucose 114 H (74-99) mg/dL Triglycerides 161.00 H (0.00-149.00) mg/dL TSH 4.970 H (0.465-4.680) mIU/L 12/08/23 Range/Units 21:24 APTT 51.9 H (22.0-30.0) sec Chloride (98-107) mmol/L Carbon Dioxide (22-30) mmol/L Glucose (74-99) mg/dL Triglycerides (0.00-149.00) mg/dL TSH (0.465-4.680) mIU/L Assessment and Plan Assessment: Triple-vessel coronary artery disease, left main disease Known history of carotid artery stenosis being followed outpatient by Dr. Quiroz, remains asymptomatic Hypertension Hyperlipidemia, treated, cholesterol 164, LDL 85 Osteoarthritis Previous tobacco dependence, preoperative FEV1 105% of predicted Plan: Continue to maximize medical therapy with aspirin, statin, beta-poppy, IV heparin and nitro Encourage incentive spirometry use Increase activity, ambulate as tolerated Tentatively plan is for off-pump myocardial revascularization with left internal mammary artery, left radial artery, and endoscopic vein harvest with ligation of the left atrial appendage by Dr. Goldstein on Tuesday, December 12, 2023 Medical management of other comorbidities per internal medicine, cardiology Will consult pulmonology for clearance.
--- NOTE | 2023-12-09 11:09 | P.PN ---
Subjective Progress Note Date: 12/09/23 Hospital Course: Patient is a very pleasant 68-year-old male with a past medical history of carotid artery stenosis with right internal carotid artery of 70% stenosis and left internal carotid 50 to 60% stenosed, hyperlipidemia, osteoarthritis, and former nicotine dependence quitting smoking in 1995. He presented to the emergency department with a chief complaint of chest pain, dizziness, and palpitations. Patient reports chest pain has been ongoing x 1 week accompanied by significant dizziness/lightheadedness, palpitations, and shortness of breath. Patient describes pain to chest as a tightening sensation and denies radiation of pain. He reports all of these symptoms are exacerbated with exertion. He denies experiencing any headache, changes in vision or hearing, cough or congestion, nausea or vomiting, diaphoresis, or experiencing any numbness/tingling/weakness/swelling in his extremities. Patient reports his carotid artery stenosis was recently diagnosed and he was supposed to follow-up with vascular surgeon to schedule carotid endarterectomy, his at bedside reports that she called the office today secondary to discovering her 's new complaints of chest pain, dizziness/lightheadedness, palpitations, and exertional dyspnea and was told by the PA at the office to go to the emergency department immediately as Dr. Quiroz is currently out of town and he will need to be evaluated by one of his associates. He underwent evaluation in the emergency department. Vital signs upon arrival show blood pressure 171/94, heart rate 95, respiratory rate 20, temp 98.1 F, and SpO2 of 99% on room air. EKG completed showing normal sinus rhythm 87 bpm with T wave inversion in lateral lead aVL and mild ST depression in lead II. Chest x-ray completed negative for acute cardiopulmonary process. Labs completed and reviewed. CBC unremarkable. Coagulation profile normal findings. BMP revealing mild hyperchloremia with chloride of 108 otherwise normal findings. Blood glucose was 113. Liver profile unremarkable. Magnesium slightly low at 1.7. Troponin negative at less than 0.012. Patient was admitted under our services with consultation to cardiology and vascular surgery. Heart score 5. Troponins t rended overnight all negative at less than 0.012 x 3 draws. Cardiology consulted, took patient for cardiac stress test which is reported to be abnormal, with poor exercise tolerance and severe EKG changes. Patient scheduled for cardiac cath tomorrow morning. -Echocardiogram demonstrates ejection fraction of 50 to 55% with mildly increased septal wall thickness, normal RVSP; stress echo did demonstrate wall motion abnormality in the distribution of the LAD [facility] which showed significant 80-90% left main disease Subjective: Patient was seen and examined at bedside today, has no complaints of pain, palpitations, dizziness while lying down. Physical exam: Gen: In NAD, non-toxic HEENT: normocephalic, atraumatic, hearing acuity is intant, mucous membranes moist CVS: perfusing all extremities well, no pitting edema, Respiratory: symmetric chest expansion, no accessory muscle use, GI: soft, NTTP, ND, : no suprapubic tenderness, no CVA tenderness MSK/Derm: no rashes, cyanosis Neuro: CN II-XII intact, no motor weakness, Psych: cooperative, euthymic mood, judgment and insight is intact Assessment and Plan of Care: Unstable Angina Carotid artery stenosis with reports of dizziness/lightheadedness Exertional dyspnea Hypertension Hyperlipidemia -Cardiology consulted, s/p LHC which showed significant 80-90% left main disease -CT surgery consulted, plan for CABG on Tuesday -Vascular surgery consulted, appreciate recommendations, outpatient follow-up -Telemetry monitoring -Cardiac diet -Continue aspirin 325 mg daily. Atorvastatin increased to 80 mg at bedtime. Patient started on metoprolol 25 mg twice daily. -Heparin drip, continue to monitor PTT for toxicity -Nitro gtt -Lipid profile with a.m. labs. CODE STATUS: Full code DVT prophylaxis: Heparin Anticipated discharge date: Clinical course to determine Anticipated discharge place: Home This document was prepared using [employer] dictation software. Please allow for errors in bottle hop while rare they do occur. Objective - Vital Signs Vital signs: Vital Signs Temp 98 F 12/09/23 08:20 Pulse 74 12/09/23 08:20 Resp 16 12/09/23 08:20 BP 124/70 12/09/23 08:20 Pulse Ox 98 12/09/23 08:20 FiO2 Intake & Output 12/08/23 12/09/23 12/09/23 18:59 06:59 18:59 Intake Total 50 83.581 240 Balance 50 83.581 240 Intake: IV 50 Intake, IV Titration 83.581 Amount Heparin Sod,Pork in 0.45% 83.581 NaCl 25,000 unit In 0.45 % NaCl 1 250ml.bag @ 12 UNITS/KG/HR 11.772 mls/hr IV .[id number] [facility] Rx#: [id number] Oral 240 Other: Voiding Method Toilet Toilet Toilet # Voids 1 2 - Labs CBC & Chem 7: 12/08/23 05:58 12/08/23 05:58 Labs: Abnormal Lab Results - Last 24 Hours (Table) 12/08/23 12/08/23 12/08/23 Range/Units 05:58 12:28 21:24 APTT 89.3 H 51.9 H (22.0-30.0) sec Triglycerides 161.00 H (0.00-149.00) mg/dL TSH 4.970 H (0.465-4.680) mIU/L
[2023-12-09 11:42] LABS: Basophils # (A) 0.1 k/uL (0-0.2); Basophils % (A) 1 %; Eosinophils # (A) 0.5 k/uL (0-0.7); Eosinophils % (A) 6 %; HCT 45.8 % (39.0-53.0); HGB 14.9 gm/dL (13.0-17.5); Lymphocytes # (A) 2.1 k/uL (1.0-4.8); Lymphocytes % (A) 29 %; MCH 30.3 pg (25.0-35.0); MCHC 32.6 g/dL (31.0-37.0); MCV 92.8 fL (80.0-100.0); Mean Platelet Volume 8.6; Monocytes # (A) 0.4 k/uL (0-1.0); Monocytes % (A) 6 %; Neutrophils # (A) 3.9 k/uL (1.3-7.7); Neutrophils % (A) 53 %; Platelet Count 176 k/uL (150-450); RBC 4.93 m/uL (4.30-5.90); RDW 12.8 % (11.5-15.5); WBC 7.2 k/uL (3.8-10.6)
[2023-12-09 11:56] LABS: African American GFR (CKD) >90 (>60 ml/min/1.73 sqM); Anion Gap 9 mmol/L; Blood Urea Nitrogen 18 mg/dL (9-20); Calcium 9.4 mg/dL (8.4-10.2); Carbon Dioxide 24 mmol/L (22-30); Chloride 110 mmol/L (98-107); Glucose 72 mg/dL (74-99); Non-African American GFR(CKD) 89 (>60 ml/min/1.73 sqM); Potassium 4.3 mmol/L (3.5-5.1); Sodium 143 mmol/L (137-145)
[2023-12-09 12:09] LABS: Prothrombin Time 11.2 sec (10.0-12.5)
--- NOTE | 2023-12-09 12:44 | P.PN ---
Subjective HISTORY OF PRESENT ILLNESS: Patient is s/p cardiac catheterization with Dr. Barroso revealing severe left main stenosis at its worst seems to be 80-90% stenosis as it trifurcates into LAD, ramus intermedius, and circumflex coronary artery with a moderate stenosis involving the proximal RCA. CT surgery was consulted for evaluation. The patient is tentatively scheduled to undergo CABG on Tuesday. Patient is seen this morning sitting up in the chair. He states that he was walking this morning and had an episode of chest discomfort that resolved with rest. He remains on IV heparin and IV nitro. He denies shortness of breath. Vital signs are stable. Telemetry reveals sinus mechanism. Echocardiogram completed revealing ejection fraction 50 to 55% PHYSICAL EXAM: VITAL SIGNS: Reviewed. GENERAL: Well-developed in no acute distress. NECK: Supple. No JVD or thyromegaly LUNGS: Respirations even and unlabored. Lungs essentially clear to auscultation bilaterally. HEART: Regular rate and rhythm. S1 and S2 heard. EXTREMITIES: Normal range of motion. No clubbing or cyanosis. Peripheral pulses intact. No lower extremity edema ASSESSMENT: Triple-vessel coronary artery disease with left main disease Carotid stenosis Hypertension Hyperlipidemia Former nicotine dependence PLAN: Continue IV heparin Continue IV nitro Continue additional cardiac medications Patient is tentatively scheduled for CABG on Tuesday Further recommendations pending patient course Nurse practitioner note has been reviewed by physician. Signing provider agrees with the documented findings, assessment, and plan of care documented by [employer] WORK[employer]PER as a scribe. Objective - Vital Signs Vital signs: Vital Signs Temp 98.3 F 12/09/23 12:10 Pulse 66 12/09/23 12:10 Resp 18 12/09/23 12:10 BP 145/80 12/09/23 12:10 Pulse Ox 99 12/09/23 12:10 FiO2 Intake & Output 12/08/23 12/09/23 12/09/23 18:59 06:59 18:59 Intake Total 50 83.581 400.884 Balance 50 83.581 400.884 Intake: IV 50 Intake, IV Titration 83.581 160.884 Amount Heparin Sod,Pork in 0.45% 83.581 160.884 NaCl 25,000 unit In 0.45 % NaCl 1 250ml.bag @ 12 UNITS/KG/HR 11.772 mls/hr IV .[id number] [facility] Rx#: [id number] Oral 240 Other: Voiding Method Toilet Toilet Toilet # Voids 1 2 - Labs CBC & Chem 7: 12/09/23 11:07 12/09/23 11:07 Labs: Abnormal Lab Results - Last 24 Hours (Table) 12/08/23 12/08/23 12/08/23 Range/Units 05:58 12:28 21:24 APTT 89.3 H 51.9 H (22.0-30.0) sec Chloride (98-107) mmol/L Glucose (74-99) mg/dL Triglycerides 161.00 H (0.00-149.00) mg/dL TSH 4.970 H (0.465-4.680) mIU/L 12/09/23 12/09/23 Range/Units 11:07 11:07 APTT 60.8 H (22.0-30.0) sec Chloride 110 H (98-107) mmol/L Glucose 72 L (74-99) mg/dL Triglycerides (0.00-149.00) mg/dL TSH (0.465-4.680) mIU/L
--- NOTE | 2023-12-09 16:07 | P.CNPUL ---
History of Present Illness Consult date: 12/09/23 Requesting physician: Alma Robbins Reason for consult: other (Critical care management) Chief complaint: Chest pain History of present illness: This is a very pleasant 68-year-old male patient with a known history of hypertension, hyperlipidemia, osteoarthritis, carotid artery stenosis, former smoker of 20 years however quit back in 1995. He had not been on any inhalers or pulmonary medications in the outpatient setting. He had been quite active riding his bike frequently up to 10 miles at a time. He had presented to the emergency room on 12/06/2023 with complaints of chest pain and shortness of breath. Catheterization on 12/07/2023 revealed one-vessel coronary artery disease with severe left main stenosis up to 80 to 90%. The plan is for coronary artery bypass grafting on 12/12/2023. He is currently sitting up in a chair. Awake and alert in no acute distress. Maintaining good O2 saturations in the 90s on room air. He has a heparin drip as well as a nitroglycerin drip at 2.5 mcg/min. He denies any chest pain. No worsening shortness of breath, cough or congestion. He is working well with the incentive spirometer. Count 7.2. Hemoglobin 14.9. Platelets 176. Sodium 143. Potassium 4.3. Bicarb 24. BUN 18. Creatinine 0.87. Chest x-ray revealed no acute cardiopulmonary process. CT scan of the chest revealed no acute pulmonary process. FEV1 value 105% of predicted. Review of Systems REVIEW OF SYSTEMS: CONSTITUTIONAL: Denies any recent significant weight loss or weight gain. EYES: Denies change in vision. EARS, NOSE, MOUTH, THROAT: Denies headaches, denies sore throat. CARDIOVASCULAR: Initially positive for chest pain, no palpitations or syncopal episodes. RESPIRATORY: Denies shortness of breath, cough, congestion or hemoptysis. GASTROINTESTINAL: Denies change in appetite, denies abdominal pain GENITOURINARY: Denies hematuria, denies infections. MUSKULOSKELETAL: Denies pain, denies swelling. INTEGUMENTARY: Denies rash, denies eczema. NEUROLOGICAL: Denies recent memory loss, no recent seizure activity. PSYCHIATRIC: Denies anxiety, denies depression. HEMATOLOGIC/LYMPHATIC: Denies anemia, denies enlarged lymph nodes. Past Medical History Past Medical History: Coronary Artery Disease (CAD), Hyperlipidemia, Hypertension, Osteoarthritis (OA) History of Any Multi-Drug Resistant Organisms: None Reported Past Surgical History: Orthopedic Surgery, Tonsillectomy Additional Past Surgical History / Comment(s): BILATERAL FOOT SURGERY (HEELS SHATTERED), Past Anesthesia/Blood Transfusion Reactions: No Reported Reaction Past Psychological History: No Psychological Hx Reported Smoking Status: Former smoker Past Alcohol Use History: None Reported Additional Past Alcohol Use History / Comment(s): STARTED SMOKING AT AGE 15 QUIT IN 1995 SMOKED 1PPD Past Drug Use History: None Reported - Past Family History Father Family Medical History: Cancer Additional Family Medical History / Comment(s): PROSTATE CANCER Medications and Allergies Home Medications Medication Instructions Recorded Confirmed Type Aspirin 325 mg PO DAILY 01/08/21 12/06/23 History Cetirizine HCl [Zyrtec] 10 mg PO DAILY PRN 12/06/23 12/06/23 History Rosuvastatin [Crestor] 10 mg PO DAILY 12/06/23 12/06/23 History traZODone HCL [Desyrel] 50 mg PO HS 12/06/23 12/06/23 History Allergies Allergy/AdvReac Type Severity Reaction Status Date / Time adhesive tape Allergy BLISTERS Verified 12/06/23 13:35 ON SKIN -paper tape OK Physical Exam Vitals: Vital Signs Temp Pulse Pulse Resp BP Pulse Ox 12/09/23 12:10 98.3 F 66 18 145/80 99 12/09/23 08:20 98 F 74 16 124/70 98 12/09/23 04:00 75 18 135/75 95 12/09/23 01:34 71 18 12/09/23 00:00 97.9 F 71 18 122/70 97 12/08/23 20:00 84 18 126/69 97 Intake and Output 12/09/23 12/09/23 12/09/23 06:59 14:59 22:59 Intake Total 406.419 Balance 406.419 Intake: Intake, IV Titration 166.419 Amount Heparin Sod,Pork in 0.45% 166.419 NaCl 25,000 unit In 0.45 % NaCl 1 250ml.bag @ 12 UNITS/KG/HR 11.772 mls/hr IV .[id number] Rx#: [id number] Oral 240 Other: Voiding Method Toilet Toilet # Voids 2 GENERAL EXAM: Alert, very pleasant 68-year-old male, up in a chair, on room air, comfortable in no apparent distress. HEAD: Normocephalic. EYES: Normal reaction of pupils, equal size. NOSE: Clear with pink turbinates. THROAT: No erythema or exudates. NECK: No masses, no JVD. CHEST: No chest wall deformity. LUNGS: Equal air entry with no crackles, wheeze, rhonchi or dullness. CVS: S1 and S2 normal with no audible murmur, regular rhythm. ABDOMEN: No hepatosplenomegaly, normal bowel sounds, no guarding or rigidity. SPINE: No scoliosis or deformity SKIN: No rashes CENTRAL NERVOUS SYSTEM: No focal deficits, tone is normal in all 4 extremities. EXTREMITIES: There is no peripheral edema. No clubbing, no cyanosis. Peripheral pulses are intact. Results - Laboratory Findings CBC and BMP: 12/09/23 11:07 12/09/23 11:07 PT/INR, D-dimer PT 11.2 sec (10.0-12.5) 12/09/23 11:07 INR 1.0 (<1.2) 12/09/23 11:07 Abnormal lab findings: Abnormal Labs 12/06/23 12/07/23 12/07/23 11:15 08:38 08:38 Eosinophils # 0.42 H APTT Chloride 108 H Carbon Dioxide Anion Gap 12.20 H Glucose 113 H POC Glucose (mg/dL) Triglycerides TSH 12/07/23 12/08/23 12/08/23 20:16 05:58 05:58 Eosinophils # 0.43 H APTT 52.8 H 48.2 H Chloride Carbon Dioxide Anion Gap Glucose POC Glucose (mg/dL) Triglycerides TSH 12/08/23 12/08/23 12/08/23 05:58 05:58 06:00 Eosinophils # APTT Chloride 110 H Carbon Dioxide 21 L Anion Gap Glucose 114 H POC Glucose (mg/dL) 112 H Triglycerides 161.00 H TSH 4.970 H 12/08/23 12/08/23 12/09/23 12:28 21:24 11:07 Eosinophils # APTT 89.3 H 51.9 H Chloride 110 H Carbon Dioxide Anion Gap Glucose 72 L POC Glucose (mg/dL) Triglycerides TSH 12/09/23 11:07 Eosinophils # APTT 60.8 H Chloride Carbon Dioxide Anion Gap Glucose POC Glucose (mg/dL) Triglycerides TSH - Diagnostic Findings Chest x-ray: image reviewed CT scan - chest: image reviewed Assessment and Plan Assessment: Chest pain in a patient found to have triple-vessel coronary artery disease including significant stenosis of the left main artery Hypertension Hyperlipidemia Osteoarthritis Remote smoking history smoked for approximately 20 years but quit back in 1995 Carotid artery stenosis, asymptomatic Plan: The patient was seen and evaluated Chest x-ray, CT scan of the chest, labs and medications reviewed FEV1 value 105% of predicted Working well with the incentive spirometer Will plan for early extubation protocol as tolerated Continued on heparin and nitroglycerin drips We will continue to follow and make further recommendations based on his clinical status I have personally seen and examined the patient, performed the documentation and the assessment and plan as written. Number of minutes spent on the visit: 20.
[2023-12-09] MEDS: MUPIROCIN 2% OINT 22 GM TUBE NASAL SCH (21:45)
[2023-12-10 07:01] LABS: Basophils # (A) 0.1 k/uL (0-0.2); Basophils % (A) 1 %; Eosinophils # (A) 0.5 k/uL (0-0.7); Eosinophils % (A) 8 %; HCT 42.2 % (39.0-53.0); HGB 15.1 gm/dL (13.0-17.5); Lymphocytes # (A) 1.8 k/uL (1.0-4.8); Lymphocytes % (A) 28 %; MCH 32.6 pg (25.0-35.0); MCHC 35.9 g/dL (31.0-37.0); MCV 90.8 fL (80.0-100.0); Mean Platelet Volume 8.9; Monocytes # (A) 0.4 k/uL (0-1.0); Monocytes % (A) 7 %; Neutrophils # (A) 3.3 k/uL (1.3-7.7); Neutrophils % (A) 53 %; Platelet Count 170 k/uL (150-450); RBC 4.64 m/uL (4.30-5.90); WBC 6.2 k/uL (3.8-10.6)
[2023-12-10 07:32] LABS: African American GFR (CKD) >90 (>60 ml/min/1.73 sqM); Anion Gap 8 mmol/L; Blood Urea Nitrogen 16 mg/dL (9-20); Calcium 9.1 mg/dL (8.4-10.2); Carbon Dioxide 24 mmol/L (22-30); Chloride 109 mmol/L (98-107); Glucose 112 mg/dL (74-99); Magnesium 1.8 mg/dL (1.6-2.3); Non-African American GFR(CKD) 89 (>60 ml/min/1.73 sqM); Potassium 3.8 mmol/L (3.5-5.1); Sodium 141 mmol/L (137-145)
--- NOTE | 2023-12-10 10:15 | P.PN ---
Subjective Progress Note Date: 12/10/23 Hospital Course: Patient is a very pleasant 68-year-old male with a past medical history of carotid artery stenosis with right internal carotid artery of 70% stenosis and left internal carotid 50 to 60% stenosed, hyperlipidemia, osteoarthritis, and former nicotine dependence quitting smoking in 1995. He presented to the emergency department with a chief complaint of chest pain, dizziness, and palpitations. Patient reports chest pain has been ongoing x 1 week accompanied by significant dizziness/lightheadedness, palpitations, and shortness of breath. Patient describes pain to chest as a tightening sensation and denies radiation of pain. He reports all of these symptoms are exacerbated with exertion. He denies experiencing any headache, changes in vision or hearing, cough or congestion, nausea or vomiting, diaphoresis, or experiencing any numbness/tingling/weakness/swelling in his extremities. Patient reports his carotid artery stenosis was recently diagnosed and he was supposed to follow-up with vascular surgeon to schedule carotid endarterectomy, his at bedside reports that she called the office today secondary to discovering her 's new complaints of chest pain, dizziness/lightheadedness, palpitations, and exertional dyspnea and was told by the PA at the office to go to the emergency department immediately as Dr. Quiroz is currently out of town and he will need to be evaluated by one of his associates. He underwent evaluation in the emergency department. Vital signs upon arrival show blood pressure 171/94, heart rate 95, respiratory rate 20, temp 98.1 F, and SpO2 of 99% on room air. EKG completed showing normal sinus rhythm 87 bpm with T wave inversion in lateral lead aVL and mild ST depression in lead II. Chest x-ray completed negative for acute cardiopulmonary process. Labs completed and reviewed. CBC unremarkable. Coagulation profile normal findings. BMP revealing mild hyperchloremia with chloride of 108 otherwise normal findings. Blood glucose was 113. Liver profile unremarkable. Magnesium slightly low at 1.7. Troponin negative at less than 0.012. Patient was admitted under our services with consultation to cardiology and vascular surgery. Heart score 5. Troponins t rended overnight all negative at less than 0.012 x 3 draws. Cardiology consulted, took patient for cardiac stress test which is reported to be abnormal, with poor exercise tolerance and severe EKG changes. Patient scheduled for cardiac cath tomorrow morning. -Echocardiogram demonstrates ejection fraction of 50 to 55% with mildly increased septal wall thickness, normal RVSP; stress echo did demonstrate wall motion abnormality in the distribution of the [facility] which showed significant 80-90% left main disease Subjective: Patient was seen and examined at bedside today, has no complaints of pain, palpitations. Physical exam: Gen: In NAD, non-toxic HEENT: normocephalic, atraumatic, hearing acuity is intant, mucous membranes moist CVS: perfusing all extremities well, no pitting edema, Respiratory: symmetric chest expansion, no accessory muscle use, GI: soft, NTTP, ND, : no suprapubic tenderness, no CVA tenderness MSK/Derm: no rashes, cyanosis Neuro: CN II-XII intact, no motor weakness, Psych: cooperative, euthymic mood, judgment and insight is intact Assessment and Plan of Care: Unstable Angina Carotid artery stenosis with reports of dizziness/lightheadedness Exertional dyspnea Hypertension Hyperlipidemia -Cardiology consulted, s/p LHC which showed significant 80-90% left main disease -CT surgery consulted, plan for CABG on Tuesday -Vascular surgery consulted, appreciate recommendations, outpatient follow-up -Telemetry monitoring -Cardiac diet -Continue aspirin 325 mg daily. Atorvastatin increased to 80 mg at bedtime. Patient started on metoprolol 25 mg twice daily. -Heparin drip, continue to monitor PTT for toxicity -Nitro gtt -Lipid profile: LDL - 85 CODE STATUS: Full code DVT prophylaxis: Heparin Anticipated discharge date: Clinical course to determine Anticipated discharge place: Home This document was prepared using [employer] dictation software. Please allow for errors in inspector missile while rare they do occur. Objective - Vital Signs Vital signs: Vital Signs Temp 98.0 F 12/09/23 20:00 Pulse 74 12/10/23 08:20 Resp 18 12/10/23 08:20 BP 139/70 12/10/23 08:20 Pulse Ox 97 12/10/23 08:20 FiO2 Intake & Output 12/09/23 12/10/23 12/10/23 18:59 06:59 18:59 Intake Total 524.419 439.732 Balance 524.419 439.732 Intake: Intake, IV Titration 166.419 199.732 Amount Heparin Sod,Pork in 0.45% 166.419 199.732 NaCl 25,000 unit In 0.45 % NaCl 1 250ml.bag @ 12 UNITS/KG/HR 11.772 mls/hr IV .[id number] [facility] Rx#: [id number] Oral 358 240 Other: Voiding Method Toilet Toilet Toilet # Voids 2 - Labs CBC & Chem 7: 12/10/23 06:28 12/10/23 06:28 Labs: Abnormal Lab Results - Last 24 Hours (Table) 12/09/23 12/09/23 12/10/23 Range/Units 11:07 11:07 06:28 APTT 60.8 H (22.0-30.0) sec Chloride 110 H 109 H (98-107) mmol/L Glucose 72 L 112 H (74-99) mg/dL 12/10/23 Range/Units 06:28 APTT 95.9 H (22.0-30.0) sec Chloride (98-107) mmol/L Glucose (74-99) mg/dL Microbiology - Last 24 Hours (Table) 12/08/23 12:20 Nasal Screen MRSA/MSSA - Final Nasopharyngeal Swab
--- NOTE | 2023-12-10 10:20 | P.PN ---
Subjective Progress Note Date: 12/10/23 Principal diagnosis: Triple-vessel coronary artery disease, left main disease. Past medical history significant for known carotid artery stenosis being followed outpatient by Dr. Quiroz, hypertension, hyperlipidemia, osteoarthritis, previous tobacco dependence. The patient was seen and examined in follow-up today December 10, 2023 at his bedside on the cardiac stepdown unit. He is currently sitting up to the bedside chair, is awake, alert, oriented x 3 and is in no acute apparent distress. Denies any complaints of chest pain/pressure or shortness of breath at this time. He reports that he did have some episodes of chest pressure yesterday. He is currently on a nitroglycerin drip managed by cardiology. The patient is also on a heparin drip per protocol. Preoperative teaching has been reinforced with the patient. The patient is scheduled for myocardial revascularization surgery with left internal mammary artery, endoscopic left radial artery harvest, endoscopic greater saphenous vein harvest, exclusion left atrial appendage and intraoperative transesophageal cardiogram scheduled for Tuesday, December 12, 2023. An STS risk or has been calculated and the patient is low risk for cardiac surgery. A clinical frailty score has also been calculated with a score of 3, mild frailty. Remote telemetry showing normal sinus rhythm heart rate 81 bpm. Laboratory results were reviewed. Objective - Vital Signs Vital signs: Vital Signs Temp 98.0 F 12/09/23 20:00 Pulse 74 12/10/23 08:20 Resp 18 12/10/23 08:20 BP 139/70 12/10/23 08:20 Pulse Ox 97 12/10/23 08:20 FiO2 Intake & Output 12/09/23 12/10/23 12/10/23 18:59 06:59 18:59 Intake Total 524.419 439.732 Balance 524.419 439.732 Intake: Intake, IV Titration 166.419 199.732 Amount Heparin Sod,Pork in 0.45% 166.419 199.732 NaCl 25,000 unit In 0.45 % NaCl 1 250ml.bag @ 12 UNITS/KG/HR 11.772 mls/hr IV .[id number] [facility] Rx#: [id number] Oral 358 240 Other: Voiding Method Toilet Toilet Toilet # Voids 2 - Exam CONSTITUTIONAL: Appears comfortable, cooperative, no acute distress RESPIRATORY: Lungs sounds diminished bilaterally. Respirations symmetrical, nonlabored. Currently on room air with oxygen saturation 95%. Able to achieve 2250 mL on incentive spirometry. Strong cough. CARDIOVASCULAR: S1, S2 present. Regular rate and rhythm, sinus rhythm on telemetry. Remote telemetry showing normal sinus rhythm heart rate 81 bpm palpable peripheral pulses bilaterally. No edema present. No calf pain or tenderness noted. Right carotid bruit. GASTROINTESTINAL: Abdomen soft, nontender, nondistended. Active bowel sounds present 4 quadrants. Tolerating diet. GENITOURINARY: Continues to void. INTEGUMENTARY: Skin is warm and dry. No clubbing or cyanosis is present. NEUROLOGIC: Cranial nerves II through XII intact. No focal deficits. MUSKULOSKELETAL: Able to move all extremities, strength equal bilaterally, gait normal. PSYCHIATRIC: Alert and oriented to person place and time, appropriate affect, intact judgment and insight. - Allied health notes Allied health notes reviewed: nursing - Labs CBC & Chem 7: 12/10/23 06:28 12/10/23 06:28 Labs: Abnormal Lab Results - Last 24 Hours (Table) 12/09/23 12/09/23 12/10/23 Range/Units 11:07 11:07 06:28 APTT 60.8 H (22.0-30.0) sec Chloride 110 H 109 H (98-107) mmol/L Glucose 72 L 112 H (74-99) mg/dL 12/10/23 Range/Units 06:28 APTT 95.9 H (22.0-30.0) sec Chloride (98-107) mmol/L Glucose (74-99) mg/dL Microbiology - Last 24 Hours (Table) 12/08/23 12:20 Nasal Screen MRSA/MSSA - Final Nasopharyngeal Swab Assessment and Plan Assessment: Triple-vessel coronary artery disease, left main disease Known history of carotid artery stenosis being followed outpatient by Dr. Quiroz, remains asymptomatic Hypertension Hyperlipidemia, treated, cholesterol 164, LDL 85 Osteoarthritis Previous tobacco dependence, preoperative FEV1 105% of predicted Plan: Continue to maximize medical therapy with aspirin, statin, beta-poppy, IV heparin and nitroglycerin drips Encourage incentive spirometry use, encourage use 10 times every hour while awake. Increase activity, ambulate as tolerated. Tentatively plan is for off-pump myocardial revascularization with left internal mammary artery, left radial artery, and endoscopic vein harvest with ligation of the left atrial appendage by Dr. Goldstein on Tuesday, December 12, 2023 Medical management of other comorbidities per internal medicine, cardiology. Clinical frailty score of 3, which shows mild frailty. Pulmonology/critical care consult noted and appreciated. More recommendations to follow on patient's clinical course. Time with Patient: Greater than 30
--- NOTE | 2023-12-10 10:52 | P.PN ---
Subjective Progress Note Date: 12/10/23 Principal diagnosis: Severe coronary artery disease The patient is a pleasant 68-year-old gentleman who was diagnosed recently with severe symptomatic triple-vessel coronary artery disease and he is going to undergo CABG this coming Tuesday. Beside that he does have carotid athe rosclerosis and hypertension and dyslipidemia. The echo revealed normal LV systolic function. December 10, 2023 The patient was seen and evaluated this morning. He is asymptomatic. He is on nitro drip and heparin drip. He is on aspirin and high intensity statin and beta-poppy. The examination revealed regular rhythm with clear breathing sounds bilaterally and no lower extremities edema noted. He reports no pain in the chest and no shortness of breath and no dizziness or lightheadedness and no feeling of heart racing or fluttering and no presyncope or syncope Assessment Severe triple-vessel coronary artery disease Multiple comorbid conditions including hypertension and dyslipidemia and carotid atherosclerosis Plan Continue the current medical regimen Continue aspirin and statin and beta-poppy Continue heparin and nitro Follow-up with the patient Objective - Vital Signs Vital signs: Vital Signs Temp 98.0 F 12/09/23 20:00 Pulse 74 12/10/23 08:20 Resp 18 12/10/23 08:20 BP 139/70 12/10/23 08:20 Pulse Ox 97 12/10/23 08:20 FiO2 Intake & Output 12/09/23 12/10/23 12/10/23 18:59 06:59 18:59 Intake Total 524.419 439.732 Balance 524.419 439.732 Intake: Intake, IV Titration 166.419 199.732 Amount Heparin Sod,Pork in 0.45% 166.419 199.732 NaCl 25,000 unit In 0.45 % NaCl 1 250ml.bag @ 12 UNITS/KG/HR 11.772 mls/hr IV .[id number] [facility] Rx#: [id number] Oral 358 240 Other: Voiding Method Toilet Toilet Toilet # Voids 2 - Labs CBC & Chem 7: 12/10/23 06:28 12/10/23 06:28 Labs: Abnormal Lab Results - Last 24 Hours (Table) 12/09/23 12/09/23 12/10/23 Range/Units 11:07 11:07 06:28 APTT 60.8 H (22.0-30.0) sec Chloride 110 H 109 H (98-107) mmol/L Glucose 72 L 112 H (74-99) mg/dL 12/10/23 Range/Units 06:28 APTT 95.9 H (22.0-30.0) sec Chloride (98-107) mmol/L Glucose (74-99) mg/dL Microbiology - Last 24 Hours (Table) 12/08/23 12:20 Nasal Screen MRSA/MSSA - Final Nasopharyngeal Swab
--- NOTE | 2023-12-10 14:50 | P.PN ---
Subjective Progress Note Date: 12/10/23 Principal diagnosis: Triple-vessel coronary artery disease This is a very pleasant 68-year-old male patient with a known history of hypertension, hyperlipidemia, osteoarthritis, carotid artery stenosis, former smoker of 20 years however quit back in 1995. He had not been on any inhalers or pulmonary medications in the outpatient setting. He had been quite active riding his bike frequently up to 10 miles at a time. He had presented to the emergency room on 12/06/2023 with complaints of chest pain and shortness of breath. Catheterization on 12/07/2023 revealed one-vessel coronary artery disease with severe left main stenosis up to 80 to 90%. The plan is for coronary artery bypass grafting on 12/12/2023. He is currently sitting up in a chair. Awake and alert in no acute distress. Maintaining good O2 saturations in the 90s on room air. He has a heparin drip as well as a nitroglycerin drip at 2.5 mcg/min. He denies any chest pain. No worsening shortness of breath, cough or congestion. He is working well with the incentive spirometer. Count 7.2. Hemoglobin 14.9. Platelets 176. Sodium 143. Potassium 4.3. Bicarb 24. BUN 18. Creatinine 0.87. Chest x-ray revealed no acute cardiopulmonary process. CT scan of the chest revealed no acute pulmonary process. FEV1 value 105% of predicted. Patient was reevaluated today on 12/10/2023, patient is doing well, he is scheduled to undergo bypass surgery on Tuesday. Presently he is asymptomatic, no cough no wheezing no shortness of breath no chest pain, practicing with incentive spirometry, ambulating in the hallway, denies any specific complaints.WBC count is 6.2 hemoglobin 15.1 heparin is therapeutic and PTT is 95.9 basic metabolic profile is normal renal profile is normal Objective - Vital Signs Vital signs: Vital Signs Temp 98.0 F 12/09/23 20:00 Pulse 61 12/10/23 12:00 Resp 18 12/10/23 12:00 BP 134/67 12/10/23 12:00 Pulse Ox 99 12/10/23 12:00 FiO2 Intake & Output 12/09/23 12/10/23 12/10/23 18:59 06:59 18:59 Intake Total 524.419 602.368 Balance 524.419 602.368 Intake: Intake, IV Titration 166.419 244.368 Amount Heparin Sod,Pork in 0.45% 166.419 244.368 NaCl 25,000 unit In 0.45 % NaCl 1 250ml.bag @ 12 UNITS/KG/HR 11.772 mls/hr IV .[id number] [facility] Rx#: [id number] Oral 358 358 Other: Voiding Method Toilet Toilet Toilet # Voids 2 - Exam GENERAL EXAM: Reveals 68-year-old white male in no distress HEAD: Normocephalic. Atraumatic EYES: Normal reaction of pupils, equal size. NOSE: Clear with pink turbinates. THROAT: No erythema or exudates. NECK: No masses, no JVD. CHEST: No chest wall deformity. LUNGS: Clear throughout no crackles rhonchi or wheezes CVS: S1 and S2 normal with no audible murmur, regular rhythm. ABDOMEN: No hepatosplenomegaly, normal bowel sounds, no guarding or rigidity. SKIN: No rashes CENTRAL NERVOUS SYSTEM: Alert oriented x 3 no gross focal deficit EXTREMITIES: No clubbing edema or cyanosis - Labs CBC & Chem 7: 12/10/23 06:28 12/10/23 06:28 Labs: Abnormal Lab Results - Last 24 Hours (Table) 12/10/23 12/10/23 Range/Units 06:28 06:28 APTT 95.9 H (22.0-30.0) sec Chloride 109 H (98-107) mmol/L Glucose 112 H (74-99) mg/dL Microbiology - Last 24 Hours (Table) 12/08/23 12:20 Nasal Screen MRSA/MSSA - Final Nasopharyngeal Swab Assessment and Plan Assessment: Impression: Chest pain in a patient found to have triple-vessel coronary artery disease including significant stenosis of the left main artery Hypertension Hyperlipidemia Osteoarthritis Remote smoking history smoked for approximately 20 years but quit back in 1995 Carotid artery stenosis, asymptomatic Preoperative pulmonary clearance. Recommendation: Reviewed his FEV1, normal. Continue incentive spirometry, continue ambulation Continue heparin nitroglycerin Cleared for surgery as scheduled Will continue to follow Time with Patient: Less than 30
--- NOTE | 2023-12-11 08:11 | P.PN ---
Subjective Progress Note Date: 12/11/23 Hospital Course: Patient is a very pleasant 68-year-old male with a past medical history of carotid artery stenosis with right internal carotid artery of 70% stenosis and left internal carotid 50 to 60% stenosed, hyperlipidemia, osteoarthritis, and former nicotine dependence quitting smoking in 1995. He presented to the emergency department with a chief complaint of chest pain, dizziness, and palpitations. Patient reports chest pain has been ongoing x 1 week accompanied by significant dizziness/lightheadedness, palpitations, and shortness of breath. Patient describes pain to chest as a tightening sensation and denies radiation of pain. He reports all of these symptoms are exacerbated with exertion. He denies experiencing any headache, changes in vision or hearing, cough or congestion, nausea or vomiting, diaphoresis, or experiencing any numbness/tingling/weakness/swelling in his extremities. Patient reports his carotid artery stenosis was recently diagnosed and he was supposed to follow-up with vascular surgeon to schedule carotid endarterectomy, his at bedside reports that she called the office today secondary to discovering her 's new complaints of chest pain, dizziness/lightheadedness, palpitations, and exertional dyspnea and was told by the PA at the office to go to the emergency department immediately as Dr. Quiroz is currently out of town and he will need to be evaluated by one of his associates. He underwent evaluation in the emergency department. Vital signs upon arrival show blood pressure 171/94, heart rate 95, respiratory rate 20, temp 98.1 F, and SpO2 of 99% on room air. EKG completed showing normal sinus rhythm 87 bpm with T wave inversion in lateral lead aVL and mild ST depression in lead II. Chest x-ray completed negative for acute cardiopulmonary process. Labs completed and reviewed. CBC unremarkable. Coagulation profile normal findings. BMP revealing mild hyperchloremia with chloride of 108 otherwise normal findings. Blood glucose was 113. Liver profile unremarkable. Magnesium slightly low at 1.7. Troponin negative at less than 0.012. Patient was admitted under our services with consultation to cardiology and vascular surgery. Heart score 5. Troponins t rended overnight all negative at less than 0.012 x 3 draws. Cardiology consulted, took patient for cardiac stress test which is reported to be abnormal, with poor exercise tolerance and severe EKG changes. Patient scheduled for cardiac cath tomorrow morning. -Echocardiogram demonstrates ejection fraction of 50 to 55% with mildly increased septal wall thickness, normal RVSP; stress echo did demonstrate wall motion abnormality in the distribution of the [facility] which showed significant 80-90% left main disease Subjective: Patient was seen and examined at bedside today, has no complaints of pain, palpitations. Physical exam: Gen: In NAD, non-toxic HEENT: normocephalic, atraumatic, hearing acuity is intant, mucous membranes moist CVS: perfusing all extremities well, no pitting edema, Respiratory: symmetric chest expansion, no accessory muscle use, GI: soft, NTTP, ND, : no suprapubic tenderness, no CVA tenderness MSK/Derm: no rashes, cyanosis Neuro: CN II-XII intact, no motor weakness, Psych: cooperative, euthymic mood, judgment and insight is intact Assessment and Plan of Care: Unstable Angina Carotid artery stenosis with reports of dizziness/lightheadedness Exertional dyspnea Hypertension Hyperlipidemia -Cardiology consulted, s/p LHC which showed significant 80-90% left main disease -CT surgery consulted, plan for CABG on Tuesday -Vascular surgery consulted, appreciate recommendations, outpatient follow-up -Telemetry monitoring -Cardiac diet -Continue aspirin 325 mg daily. Atorvastatin increased to 80 mg at bedtime. Patient started on metoprolol 25 mg twice daily. -Heparin drip, continue to monitor PTT for toxicity -Nitro gtt -Lipid profile: LDL - 85 CODE STATUS: Full code DVT prophylaxis: Heparin Anticipated discharge date: Clinical course to determine Anticipated discharge place: Home This document was prepared using [employer] dictation software. Please allow for errors in hot dip tinning supervisor while rare they do occur. Objective - Vital Signs Vital signs: Vital Signs Temp 98.2 F 12/10/23 20:00 Pulse 69 12/11/23 04:00 Resp 18 12/11/23 04:00 BP 115/68 12/11/23 04:00 Pulse Ox 95 12/11/23 04:00 FiO2 Intake & Output 12/10/23 12/11/23 12/11/23 18:59 06:59 18:59 Intake Total 665.316 Balance 665.316 Intake: Intake, IV Titration 307.316 Amount Heparin Sod,Pork in 0.45% 307.316 NaCl 25,000 unit In 0.45 % NaCl 1 250ml.bag @ 12 UNITS/KG/HR 11.772 mls/hr IV .[id number] [facility] Rx#: [id number] Oral 358 Other: Voiding Method Toilet Toilet # Voids 1 - Labs CBC & Chem 7: 12/10/23 06:28 12/10/23 06:28 Labs: Abnormal Lab Results - Last 24 Hours (Table) 12/10/23 Range/Units 16:11 APTT 54.9 H (22.0-30.0) sec
--- NOTE | 2023-12-11 09:03 | P.PN ---
Subjective Progress Note Date: 12/11/23 Principal diagnosis: Triple-vessel coronary artery disease, left main disease. Past medical history significant for known carotid artery stenosis being followed outpatient by Dr. Quiroz, hypertension, hyperlipidemia, osteoarthritis, previous tobacco dependence. The patient was seen and examined in follow-up today December 11, 2023 at his bedside on the third floor cardiac stepdown unit. He is currently sitting up to the bedside edge, eating his breakfast, is awake, alert, oriented x 3 and is in no acute apparent distress. Denies any complaints of shortness of breath or c hest pain/chest pressure at this time. Heparin drip and nitroglycerin drip remain infusing and are being managed by cardiology. Oxygen saturations are 95% on room air and he is achieving 2500 mL on his incentive spirometry with encouragement. He reports he has been up ambulating in the cardiac stepdown unit hallway independently and tolerating well. Remote telemetry is showing normal sinus rhythm heart rate 71 bpm. He is scheduled for myocardial vascularization surgery tomorrow December 12, [address] Goldstein, off-pump myocardial vascularization with left internal mammary artery, endoscopic radial artery harvest, endoscopic greater saphenous vein harvest, exclusion left atrial appendage and intraoperative transesophageal echocardiogram. Preoperative testing has been reinforced with the patient. He will be n.p.o. after midnight. Objective - Vital Signs Vital signs: Vital Signs Temp 97.6 F 12/11/23 08:48 Pulse 68 12/11/23 08:48 Resp 18 12/11/23 08:48 BP 128/69 12/11/23 08:48 Pulse Ox 98 12/11/23 08:48 FiO2 Intake & Output 12/10/23 12/11/23 12/11/23 18:59 06:59 18:59 Intake Total 665.316 Balance 665.316 Intake: Intake, IV Titration 307.316 Amount Heparin Sod,Pork in 0.45% 307.316 NaCl 25,000 unit In 0.45 % NaCl 1 250ml.bag @ 12 UNITS/KG/HR 11.772 mls/hr IV .[id number] [facility] Rx#: [id number] Oral 358 Other: Voiding Method Toilet Toilet # Voids 1 - Exam CONSTITUTIONAL: Appears comfortable, cooperative, no acute distress RESPIRATORY: Lungs sounds diminished bilaterally. Respirations symmetrical, nonlabored. Currently on room air with oxygen saturation 95%. Able to achieve 2500 mL on incentive spirometry. Strong cough. CARDIOVASCULAR: S1, S2 present. Regular rate and rhythm, sinus rhythm on telemetry. Remote telemetry showing normal sinus rhythm heart rate 81 bpm palpable peripheral pulses bilaterally. No edema present. No calf pain or tenderness noted. Right carotid bruit. GASTROINTESTINAL: Abdomen soft, nontender, nondistended. Active bowel sounds present 4 quadrants. Tolerating diet. GENITOURINARY: Continues to void. INTEGUMENTARY: Skin is warm and dry. No clubbing or cyanosis is present. NEUROLOGIC: Cranial nerves II through XII intact. No focal deficits. MUSKULOSKELETAL: Able to move all extremities, strength equal bilaterally, gait normal. PSYCHIATRIC: Alert and oriented to person place and time, appropriate affect, intact judgment and insight. - Allied health notes Allied health notes reviewed: nursing - Labs CBC & Chem 7: 12/10/23 06:28 12/10/23 06:28 Labs: Abnormal Lab Results - Last 24 Hours (Table) 12/10/23 Range/Units 16:11 APTT 54.9 H (22.0-30.0) sec Assessment and Plan Assessment: Triple-vessel coronary artery disease, left main disease Known history of carotid artery stenosis being followed outpatient by Dr. Cobb to, remains asymptomatic Hypertension Hyperlipidemia, treated, cholesterol 164, LDL 85 Osteoarthritis Previous tobacco dependence, preoperative FEV1 105% of predicted Plan: Continue to maximize medical therapy with aspirin, statin, beta-poppy, IV heparin and nitroglycerin drips. Encourage incentive spirometry use, encourage use 10 times every hour while awake. Increase activity, ambulate as tolerated. Scheduled for off-pump myocardial revascularization with left internal mammary artery, left radial artery, and endoscopic vein harvest with ligation of the left atrial appendage by Dr. Goldstein on Tuesday, December 12, 2023 Medical management of other comorbidities per internal medicine, cardiology. Clinical frailty score of 3, which shows mild frailty. Pulmonology/critical care consult noted and appreciated. More recommendations to follow on patient's clinical course. Time with Patient: Greater than 30
--- NOTE | 2023-12-11 11:40 | P.PN ---
Subjective Progress Note Date: 12/11/23 Principal diagnosis: Severe coronary artery disease The patient is a pleasant 68-year-old gentleman who was diagnosed recently with severe symptomatic triple-vessel coronary artery disease and he is going to undergo CABG this coming Tuesday. Beside that he does have carotid athe rosclerosis and hypertension and dyslipidemia. The echo revealed normal LV systolic function. December 10, 2023 The patient was seen and evaluated this morning. He is asymptomatic. He is on nitro drip and heparin drip. He is on aspirin and high intensity statin and beta-poppy. The examination revealed regular rhythm with clear breathing sounds bilaterally and no lower extremities edema noted. He reports no pain in the chest and no shortness of breath and no dizziness or lightheadedness and no feeling of heart racing or fluttering and no presyncope or syncope December 11, 2023 The patient was seen and evaluated this morning. He is stable. He is asymptomatic and reports no pain in the chest and no shortness of breath on the current dose of heparin as well as IV nitrates. He is hemodynamically stable with a good blood pressure and heart rate. He is also on aspirin and statin. The plan is to proceed with open heart surgery tomorrow morning. Examination revealed regular rhythm with clear breathing sounds bilaterally and no edema was noted in the lower extremities Assessment Severe triple-vessel coronary artery disease Multiple comorbid conditions including hypertension and dyslipidemia and carotid atherosclerosis Plan Continue the current medical regimen Continue aspirin and statin and beta-poppy Continue heparin and nitro Follow-up with the patient Objective - Vital Signs Vital signs: Vital Signs Temp 97.6 F 12/11/23 08:48 Pulse 68 12/11/23 08:48 Resp 18 12/11/23 08:48 BP 128/69 12/11/23 08:48 Pulse Ox 98 12/11/23 08:48 FiO2 Intake & Output 12/10/23 12/11/23 12/11/23 18:59 06:59 18:59 Intake Total 665.316 240 Balance 665.316 240 Intake: Intake, IV Titration 307.316 Amount Heparin Sod,Pork in 0.45% 307.316 NaCl 25,000 unit In 0.45 % NaCl 1 250ml.bag @ 12 UNITS/KG/HR 11.772 mls/hr IV .[id number] [facility] Rx#: [id number] Oral 358 240 Other: Voiding Method Toilet Toilet # Voids 1 - Labs CBC & Chem 7: 12/10/23 06:28 12/10/23 06:28 Labs: Abnormal Lab Results - Last 24 Hours (Table) 12/10/23 Range/Units 16:11 APTT 54.9 H (22.0-30.0) sec
--- NOTE | 2023-12-11 16:06 | P.PN ---
Subjective Progress Note Date: 12/11/23 Principal diagnosis: Triple-vessel coronary artery disease This is a very pleasant 68-year-old male patient with a known history of hypertension, hyperlipidemia, osteoarthritis, carotid artery stenosis, former smoker of 20 years however quit back in 1995. He had not been on any inhalers or pulmonary medications in the outpatient setting. He had been quite active riding his bike frequently up to 10 miles at a time. He had presented to the emergency room on 12/06/2023 with complaints of chest pain and shortness of breath. Catheterization on 12/07/2023 revealed one-vessel coronary artery disease with severe left main stenosis up to 80 to 90%. The plan is for coronary artery bypass grafting on 12/12/2023. He is currently sitting up in a chair. Awake and alert in no acute distress. Maintaining good O2 saturations in the 90s on room air. He has a heparin drip as well as a nitroglycerin drip at 2.5 mcg/min. He denies any chest pain. No worsening shortness of breath, cough or congestion. He is working well with the incentive spirometer. Count 7.2. Hemoglobin 14.9. Platelets 176. Sodium 143. Potassium 4.3. Bicarb 24. BUN 18. Creatinine 0.87. Chest x-ray revealed no acute cardiopulmonary process. CT scan of the chest revealed no acute pulmonary process. FEV1 value 105% of predicted. Patient was reevaluated today on 12/10/2023, patient is doing well, he is scheduled to undergo bypass surgery on Tuesday. Presently he is asymptomatic, no cough no wheezing no shortness of breath no chest pain, practicing with incentive spirometry, ambulating in the hallway, denies any specific complaints.WBC count is 6.2 hemoglobin 15.1 heparin is therapeutic and PTT is 95.9 basic metabolic profile is normal renal profile is normal Reevaluate today on 12/11/2023, patient is still scheduled for CABG tomorrow, doing well asymptomatic doing great with incentive spirometry, has no active pulmonary symptoms, patient is cleared for surgery and considered low operative risk. Family is at bedside with the patient today. Objective - Vital Signs Vital signs: Vital Signs Temp 98.0 F 12/11/23 12:00 Pulse 71 12/11/23 15:24 Resp 16 12/11/23 15:24 BP 132/73 12/11/23 15:24 Pulse Ox 97 12/11/23 15:24 FiO2 Intake & Output 12/10/23 12/11/23 12/11/23 18:59 06:59 18:59 Intake Total 665.316 423.938 Balance 665.316 423.938 Intake: Intake, IV Titration 307.316 183.938 Amount Heparin Sod,Pork in 0.45% 307.316 183.938 NaCl 25,000 unit In 0.45 % NaCl 1 250ml.bag @ 12 UNITS/KG/HR 11.772 mls/hr IV .[id number] [facility] Rx#: [id number] Oral 358 240 Other: Voiding Method Toilet Toilet # Voids 1 - Exam GENERAL EXAM: Reveals 68-year-old white male in no distress HEAD: Normocephalic. Atraumatic EYES: Normal reaction of pupils, equal size. NOSE: Clear with pink turbinates. THROAT: No erythema or exudates. NECK: No masses, no JVD. CHEST: No chest wall deformity. LUNGS: Clear throughout no crackles rhonchi or wheezes CVS: S1 and S2 normal with no audible murmur, regular rhythm. ABDOMEN: No hepatosplenomegaly, normal bowel sounds, no guarding or rigidity. SKIN: No rashes CENTRAL NERVOUS SYSTEM: Alert oriented x 3 no gross focal deficit EXTREMITIES: No clubbing edema or cyanosis - Labs CBC & Chem 7: 12/10/23 06:28 12/10/23 06:28 Labs: Abnormal Lab Results - Last 24 Hours (Table) 12/10/23 12/11/23 12/11/23 Range/Units 16:11 12:04 12:04 APTT 54.9 H 48.1 H (22.0-30.0) sec Crossmatch See Detail Assessment and Plan Assessment: Impression: Chest pain in a patient found to have triple-vessel coronary artery disease including significant stenosis of the left main artery Hypertension Hyperlipidemia Osteoarthritis Remote smoking history smoked for approximately 20 years but quit back in 1995 Carotid artery stenosis, asymptomatic Preoperative pulmonary clearance. Recommendation: Continue incentive spirometry, continue ambulation Continue heparin nitroglycerin Surgery is scheduled in a.m. Will continue to follow after surgery Time with Patient: Less than 30
[2023-12-11 18:22] LABS: Appearance,Urine Clear (Clear); Bilirubin,Urine Negative (Negative); Blood,Urine Negative (Negative); Color,Urine Colorless; Glucose,Urine (UA) Negative (Negative); Ketones,Urine Negative (Negative); Leukocyte Esterase,Urine Negative (Negative); Nitrite,Urine Negative (Negative); PH, Urine 6.5 (5.0-8.0); Protein,Urine Negative (Negative); Specific Gravity,Urine 1.004 (1.001-1.035); Urobilinogen,Urine <2.0 mg/dL (<2.0)
[2023-12-12] MEDS: ATORVASTATIN 10 MG TAB PO ONE (04:43)
[2023-12-12] MEDS: METOPROLOL TARTRATE 12.5 MG TAB PO ONE (04:44)
[2023-12-12] MEDS: ASPIRIN 81 MG PO ONE (04:44)
[2023-12-12] MEDS ORDERED: NOREPINEPHRINE 4 MG in SODIUM CHLORIDE 0.9% 250 ML IV SCH (05:00)
[2023-12-12] MEDS ORDERED: INSULIN REGULAR 100 UNIT in SODIUM CHLORIDE 0.9% 100 ML IV SCH (06:00)
[2023-12-12] MEDS: IV FLUID CONTINUATION 1,000 ML IV ONE (06:05)
[2023-12-12 06:27] LABS: Glucose,Whole Blood 109 mg/dL (70-110)
[2023-12-12] MEDS ORDERED: MIDAZOLAM HCL 10 MG/10 ML VIAL ONE (07:45)
[2023-12-12] MEDS ORDERED: PROTAMINE SULFATE 10 MG/ML 25 ML VIAL IV ONE (07:45)
[2023-12-12] MEDS ORDERED: ALBUMIN HUMAN 5% (25gm) 500 ML VIAL IVPB ONE (07:45)
[2023-12-12] MEDS ORDERED: fentaNYL (PF) 50 MCG/ML 50 ML VIAL ONE (07:45)
[2023-12-12] MEDS ORDERED: HEPARIN SODIUM,PORCINE 5,000 UNIT/ML 1 ML VIAL ONE (07:45)
[2023-12-12] MEDS ORDERED: SUCCINYLCHOLINE CHLORIDE 200 MG/10 ML VIAL IV ONE (07:45)
[2023-12-12] MEDS ORDERED: HEPARIN SODIUM,PORCINE 10,000 UNIT/ML 1 ML VIAL ONE (07:45)
[2023-12-12] MEDS ORDERED: VECURONIUM 10 MG VIAL IV ONE (07:45)
[2023-12-12 08:38] LABS: ABG Glucose Whole Blood 97 mg/dL (75-99); ABG HCO3 24 mmol/L (21-25); ABG Hematocrit 41 % (34.0-46.0); ABG Ionized Calcium 4.8 mg/dL (4.5-5.3); ABG Lactic Acid Whole Blood 1.9 mmol/L (0.5-1.6); ABG PCO2 43 mmHg (35-45); ABG PH 7.35 (7.35-7.45); ABG PO2 274 mmHg (83-108); ABG Potassium Whole Blood 4.3 mmol/L (3.4-4.5); ABG Sodium Whole Blood 141 mmol/L (135-146)
[2023-12-12] MEDS: SODIUM CHLORIDE 0.9% 500 ML 500 ML with HEPARIN SODIUM,PORCINE (1 ML) 5,000 UNIT IV ONE (09:19)
[2023-12-12] MEDS: ceFAZolin 1,000 MG in SODIUM CHLORIDE 0.9% 1,000 ML IRRIGATION ONE (09:19)
[2023-12-12] MEDS: PAPAVERINE 360 MG in SODIUM CHLORIDE 0.9% 90 ML IV ONE (09:19)
[2023-12-12] MEDS: DILTIAZEM 125 MG in SODIUM CHLORIDE 0.9% 100 ML IV SCH ×2 (09:20→21:16)
[2023-12-12 09:49] LABS: ABG Base Excess -2.6 mmol/L; ABG Glucose Whole Blood 120 mg/dL (75-99); ABG HCO3 23 mmol/L (21-25); ABG Hematocrit 39 % (34.0-46.0); ABG Ionized Calcium 4.7 mg/dL (4.5-5.3); ABG Lactic Acid Whole Blood 0.9 mmol/L (0.5-1.6); ABG PCO2 43 mmHg (35-45); ABG PH 7.34 (7.35-7.45); ABG PO2 265 mmHg (83-108); ABG Potassium Whole Blood 4.4 mmol/L (3.4-4.5); ABG Sodium Whole Blood 142 mmol/L (135-146)
[2023-12-12 10:27] LABS: ABG Base Excess -2.4 mmol/L; ABG Glucose Whole Blood 129 mg/dL (75-99); ABG HCO3 23 mmol/L (21-25); ABG Hematocrit 39 % (34.0-46.0); ABG Ionized Calcium 4.7 mg/dL (4.5-5.3); ABG Oxygen Saturation 98.8 % (94-97); ABG PCO2 41 mmHg (35-45); ABG PH 7.36 (7.35-7.45); ABG PO2 223 mmHg (83-108); ABG Potassium Whole Blood 4.3 mmol/L (3.4-4.5); ABG Sodium Whole Blood 141 mmol/L (135-146)
[2023-12-12 11:27] LABS: ABG Glucose Whole Blood 122 mg/dL (75-99); ABG HCO3 22 mmol/L (21-25); ABG Hematocrit 35 % (34.0-46.0); ABG Ionized Calcium 4.5 mg/dL (4.5-5.3); ABG Lactic Acid Whole Blood 1.1 mmol/L (0.5-1.6); ABG Oxygen Saturation 98.8 % (94-97); ABG PCO2 40 mmHg (35-45); ABG PH 7.36 (7.35-7.45); ABG PO2 189 mmHg (83-108); ABG Sodium Whole Blood 142 mmol/L (135-146)
--- NOTE | 2023-12-12 11:27 | P.ANPRN ---
Procedure Note - Anesthesia - Invasive Line Right Central Line Time Out Performed: Yes Date of Procedure: 12/12/23 Time of Procedure: 07:39 Location of Patient: PreOp Preparation: Sterile Prep, Sterile Dressing Central Line Location: Internal Jugular Ultrasound Used: No Purpose - Visualization and Identification of Vasculature: No Image Stored and Saved: No Narrative: Invasive line placement per sterile protocol utilized.
--- NOTE | 2023-12-12 11:28 | P.ANPRN ---
Procedure Note - Anesthesia - Invasive Line Right [place] Nirav Time Out Performed: Yes Date of Procedure: 12/12/23 Time of Procedure: 07:44 Location of Patient: PreOp Preparation: Sterile Prep, Sterile Dressing Central Line Location: Internal Jugular Ultrasound Used: No Purpose - Visualization and Identification of Vasculature: No Image Stored and Saved: No Narrative: Invasive line placement per sterile protocol utilized.
[2023-12-12] MEDS ORDERED: Potassium Replacement Protocol 1 EACH MISC MISCELLANE PRN (11:47)
[2023-12-12] MEDS ORDERED: AMIODARONE 450 MG in DEXTROSE 5% IN WATER 250 ML IV PRN (11:47)
[2023-12-12] MEDS ORDERED: AMIODARONE 360 MG in DEXTROSE 5% IN WATER 200 ML IV PRN (11:47)
[2023-12-12] MEDS ORDERED: CALCIUM GLUCONATE IN NACL 2 GM in SALINE 1 100ML.BAG IVPB PRN (11:47)
[2023-12-12] MEDS ORDERED: Magnesium Replacement Protocol 1 EACH MISC MISCELLANE PRN ×2 (11:47→14:56)
[2023-12-12] MEDS ORDERED: ONDANSETRON 4 MG/2 ML VIAL IVP PRN (11:47)
[2023-12-12] MEDS ORDERED: IPRATROPIUM-ALBUTEROL 3 ML NEB INHALATION PRN (11:47)
[2023-12-12] MEDS ORDERED: DEXTROSE 5% IN WATER 100 ML with AMIODARONE 150 MG IV PRN (11:47)
[2023-12-12] MEDS ORDERED: DEXTROSE 50% SYRINGE 50 ML IVP PRN ×2 (11:47)
[2023-12-12] MEDS ORDERED: BENZOCAINE/MENTHOL LOZENG 1 EACH LOZENGE MUCOUS MEM PRN (11:47)
--- NOTE | 2023-12-12 12:01 | P.OP ---
Date of Procedure: 12/12/23 Preoperative Diagnosis: 2v CAD with Unstable Angina HTN HLD Carotid artery stenosis, bilateral Postoperative Diagnosis: Same Procedure(s) Performed: 1. Off pump coronary artery bypass grafting x 2. Left internal thoracic artery (in-situ) to left anterior descending coronary artery. Left radial artery from aorta to obtuse marginal artery. 2. Left atrial appendage ligation using #35mm AtriClip 3. Endoscopic left radial artery harvest 4. Trans-esophageal echo Anesthesia: SKIP Surgeon: Micheal Goldstein Switch Repairer #1: Basilio Spain Switch Repairer #2: Jorge A Mensah Estimated Blood Loss (ml): 250 Pathology: none sent Condition: critical Disposition: ICU Indications for Procedure: This patient is a 68 year-old M with a hx of htn, hld, previous tabacco dependence and known >70% carotid stenosis of the right internal carotid artery presented to the hospital with exertional sob and chest pressure. Coronary angiography revealed significant left main and proximal LAD disease. His StS risk of morbidity and mortality was discussed with him and CABG was recommended. He was in agreement to proceed. Operative Findings: YANES (1.75mm good conduit. LAD 1.75mm great target. YANES-LAD flow 60ml/min, P.I. 1.5 Radial artery 2.25mm good conduit. OM 1.6mm good target. RA-OM Flow 88ml/min, P.I. 1.5 Description of Procedure: The patient underwent central line, arterial line, and [place] Nirav catheter placement in the pre-operative suite by the anesthesia team. The patient was then brought to the operating room and placed in the supine position. General anesthesia was induced and the patient was prepped from the chin to the ankles in the usual sterile fashion. A time-out was performed and antibiotics were given. A midline incision was made on the chest and carried down to bone. A median sternotomy was performed. Hemostasis on the bone was achieved using electrocautery and small amount of bone wax. The left pleura was entered and the left internal thoracic artery was harvested in a skeletonized fashion. Simultaneously a physician family services assistant harvested the left radial artery in an endoscopic fashion. The patient was systemically heparinized and the VERITO was transected and placed in a papaverine jacuzzi. A left sided chest tube was placed. The pericardium was incised in a reverse T-fashion and a pericardial cradle was created. The right pleura was opened. Stay sutures were placed. #35mm AtriClip was placed on the left atrial appendage. With ACT > 250, the octopus sabilizer was placed on the mid LAD which was a good target. An ateriorotomy was made and 1.5mm shunt inserted. An end to side anastomosis between the VERITO and LAD was performed using a running 7-0 prolene. The shunt was removed prior to tieing down the suture. Next stay sutures were placed near the left inferior pulmonary vein and oblique sinus. At this point, the lateral wall was exposed and the obtuse marginal #1 was identified and stabilized. The OM was opened and 1.5mm flow through was inserted. It was a good target. An end to side anastomosis was created between the radial artery and obtuse marginal using a running 7-0 prolene. Next, the heartstring device was used to create aortotomy. The radial artery was fastened to the ascending aorta using a running 5-0 prolene. The heartstring was removed in entirety prior to tieing down the suture. At this point, graft flows were measured which were excellent. At this point, protamine was given and hemostasis was secured. A 32F chest tube and 19F jose were placed in the mediastinum and right pleura respectively. Temporary ventricular wires were placed on the RV. The pericardium was reapproximated partially and the sternum was closed with pioneer cables and layers of suture. The leg was closed in layers as well. The patient tolerated the procedure without any significant hypotension and was transferred to CVICU in critical condition on only nitro gtt.
[2023-12-12 12:27] LABS: Glucose,Whole Blood 124 mg/dL (70-110)
[2023-12-12] MEDS: ALBUMIN HUMAN 5% 250 ML in EMPTY BAG 1 BAG IVPB PRN (12:35)
[2023-12-12] MEDS: LACTATED RINGERS 1,000 ML IV SCH (12:35)
[2023-12-12] MEDS: NITROGLYCERIN-D5W PMX 50 MG in DEXTROSE/WATER 1 250ML.BAG IV SCH (12:36)
[2023-12-12] MEDS: IPRATROPIUM-ALBUTEROL 3 ML NEB INHALATION SCH ×2 (12:37→19:54)
[2023-12-12] MEDS: CLEVIDIPINE BUTYRATE 25 MG in EMPTY BAG 1 BAG IV SCH (12:38)
[2023-12-12 12:43] LABS: Basophils % (A) 0 %; Eosinophils # (A) 0.4 k/uL (0-0.7); Eosinophils % (A) 2 %; HCT 34.6 % (39.0-53.0); Ionized Calcium 4.6 mg/dL (4.5-5.3); Lymphocytes # (A) 1.2 k/uL (1.0-4.8); Lymphocytes % (A) 8 %; MCH 32.1 pg (25.0-35.0); MCHC 35.1 g/dL (31.0-37.0); MCV 91.5 fL (80.0-100.0); Mean Platelet Volume 9.5; Monocytes # (A) 0.6 k/uL (0-1.0); Monocytes % (A) 4 %; Neutrophils # (A) 13.5 k/uL (1.3-7.7); Neutrophils % (A) 85 %; Platelet Count 116 k/uL (150-450); RBC 3.78 m/uL (4.30-5.90); WBC 15.8 k/uL (3.8-10.6)
[2023-12-12 12:49] LABS: HGB 12.1 gm/dL (13.0-17.5)
[2023-12-12 12:50] LABS: INR 1.2 (<1.2); Partial Thromboplastin Time 33.2 sec (22.0-30.0); Prothrombin Time 12.8 sec (10.0-12.5)
[2023-12-12 13:05] LABS: ABG Base Excess -2.8 mmol/L; ABG HCO3 24 mmol/L (21-25); ABG Oxygen Saturation 99.5 % (94-97); ABG PCO2 52 mmHg (35-45); ABG PH 7.28 (7.35-7.45); ABG PO2 >400 mmHg (83-108); ABG TCO2 26 mmol/L (19-24); Allen Test Performed? Yes
[2023-12-12 13:15] LABS: ALT 21 U/L (4-49); AST 29 U/L (17-59); African American GFR (CKD) >90 (>60 ml/min/1.73 sqM); Albumin 3.5 g/dL (3.5-5.0); Alkaline Phosphatase 55 U/L (38-126); Anion Gap 7 mmol/L; Blood Urea Nitrogen 14 mg/dL (9-20); Carbon Dioxide 21 mmol/L (22-30); Chloride 112 mmol/L (98-107); Glucose 120 mg/dL (74-99); Magnesium 1.8 mg/dL (1.6-2.3); Non-African American GFR(CKD) >90 (>60 ml/min/1.73 sqM); Potassium 3.9 mmol/L (3.5-5.1); Sodium 140 mmol/L (137-145); Total Bilirubin 0.8 mg/dL (0.2-1.3); Total Protein 5.7 g/dL (6.3-8.2)
--- NOTE | 2023-12-12 13:26 | XR ---
EXAMINATION TYPE: XR chest 1V portable DATE OF EXAM: 12/12/2023 Comparison: 12/06/2023 Clinical History: 68-year-old male Post Operative Cardiac Surgery ET tube at the level of medial clavicular heads. NG tube courses below the diaphragm. Excessive tube and catheter overlap makes it difficult to identify the tip of the NG tube. It may be short. Attentio n on follow-up. Mediastinal drains. Bilateral chest tubes. Right IJ [place]-Nirav catheter. The catheter tip is within the right interlobar pulmonary artery branch. Patchy interstitial changes bilaterally. No sizable pleural effusion. Retained epicardial pacer leads. Impression: 1. Post-CABG changes with mild patchy interstitial edema. 2. Note the [place]-Nirav catheter tip in the region of the right interlobar pulmonary artery branch. 3. The tip of the NG tube is not well seen due to excessively overlapping tubes/catheters. Attention on follow-up.
[2023-12-12 13:53] LABS: Glucose,Whole Blood 133 mg/dL (70-110)
[2023-12-12] MEDS: INSULIN REGULAR 100 UNIT in SODIUM CHLORIDE 0.9% 100 ML IV SCH (13:54)
[2023-12-12] MEDS: DEXMEDETOMIDINE/0.9% NACL(PMX) 400 MCG in EMPTY BAG 1 BAG IV SCH (14:17)
[2023-12-12] MEDS: ACETAMINOPHEN IV (For NPO) 1,000 MG in EMPTY BAG 1 BAG IVPB SCH (14:27)
[2023-12-12 15:17] LABS: Glucose,Whole Blood 137 mg/dL (70-110)
[2023-12-12] MEDS: POTASSIUM BICARBONATE/CIT AC 20 MEQ TABLET.EFF NG-TUBE SCH (15:21)
[2023-12-12] MEDS: MAGNESIUM SULFATE-D5W PMX 1 GM in DEXTROSE/WATER 1 100ML.BAG IVPB ONE (15:21)
--- NOTE | 2023-12-12 15:41 | P.PN ---
Subjective Progress Note Date: 12/12/23 Principal diagnosis: Coronary disease. This is a very pleasant 68-year-old male patient with a known history of hypertension, hyperlipidemia, osteoarthritis, carotid artery stenosis, former smoker of 20 years however quit back in 1995. He had not been on any inhalers or pulmonary medications in the outpatient setting. He had been quite active riding his bike frequently up to 10 miles at a time. He had presented to the emergency room on 12/06/2023 with complaints of chest pain and shortness of breath. Catheterization on 12/07/2023 revealed one-vessel coronary artery disea se with severe left main stenosis up to 80 to 90%. The plan is for coronary artery bypass grafting on 12/12/2023. He is currently sitting up in a chair. Awake and alert in no acute distress. Maintaining good O2 saturations in the 90s on room air. He has a heparin drip as well as a nitroglycerin drip at 2.5 mcg/min. He denies any chest pain. No worsening shortness of breath, cough or congestion. He is working well with the incentive spirometer. Count 7.2. Hemoglobin 14.9. Platelets 176. Sodium 143. Potassium 4.3. Bicarb 24. BUN 18. Creatinine 0.87. Chest x-ray revealed no acute cardiopulmonary process. CT scan of the chest revealed no acute pulmonary process. FEV1 value 105% of predicted. Patient was reevaluated today on 12/10/2023, patient is doing well, he is scheduled to undergo bypass surgery on Tuesday. Presently he is asymptomatic, no cough no wheezing no shortness of breath no chest pain, practicing with incentive spirometry, ambulating in the hallway, denies any specific complaints.WBC count is 6.2 hemoglobin 15.1 heparin is therapeutic and PTT is 95.9 basic metabolic profile is normal renal profile is normal Reevaluate today on 12/11/2023, patient is still scheduled for CABG tomorrow, doing well asymptomatic doing great with incentive spirometry, has no active pulmonary symptoms, patient is cleared for surgery and considered low operative risk. Family is at bedside with the patient today. Progress note dated December 12, 2023. 68-year-old male, postop day #0, status post two-vessel bypass surgery. The surgery was done off-pump. He had a YANES to LAD bypass, and HIPOLITO to OM1. The patient is now back in the intensive care unit, room 251. Current ventilator settings include volume assist-control rate 16, tidal volume 450, FiO2 50%, and PEEP of 8. On settings of 100%, and a rate of 12, his gases were pO2 greater than 400, pCO2 52, pH is 7.28. His cardiac output is 6.6. His index is 3.1. He is getting propofol at 20 mcg/kg/min, insulin drip at 1 unit an hour, lactated Ringer's at 50 cc an hour, nitroglycerin at 5 mcg/min, and dexmedetomi dine at 0.7 mcg/kg/h. Current labs include a white count 15.8, hemoglobin 12.1, hematocrit 34.6, and platelet count 116,000. Sodium 140, potassium 3.9, chlorides 112, CO2 21, BUN 14, and creatinine 0.73. Glucose is 137. Chest x- ray shows a well-positioned endotracheal tube, a PA catheter, and relatively clear lung almanza. Objective - Vital Signs Vital signs: Vital Signs Temp 95.2 F L 12/12/23 14:00 Pulse 96 12/12/23 15:22 Resp 16 12/12/23 14:15 BP 138/64 12/12/23 06:05 Pulse Ox 100 12/12/23 14:15 FiO2 50 12/12/23 13:20 Intake & Output 12/11/23 12/12/23 12/12/23 18:59 06:59 18:59 Intake Total 663.938 525.940 Output Total 1150 Balance 663.938 -624.060 Weight 96.3 kg Intake: IV 73 NS for cardiac output 60 NS for pressure flush 9 Intake, IV Titration 183.938 452.940 Amount Albumin Human 5% 250 ml 250 In Empty Bag 1 bag @ 250 mls/hr IVPB Q1HR PRN Rx#: [id number] Clevidipine Butyrate 25 4 mg In Empty Bag 1 bag @ 1 MG/HR 2 mls/hr IV .Q24H [facility] Rx#:[id number] Clevidipine Butyrate 25 4.000 mg In Empty Bag 1 bag @ 1 MG/HR 2 mls/hr IV .Q24H [facility] Rx#:[id number] Dexmedetomidine/0.9% NaCl 5.297 (Pmx) 400 mcg In Empty Bag 1 bag @ Titrate IV . Q0M [facility] Rx#:[id number] Heparin Sod,Pork in 0.45% 183.938 NaCl 25,000 unit In 0.45 % NaCl 1 250ml.bag @ 12 UNITS/KG/HR 11.772 mls/hr IV .[id number] [facility] Rx#: [id number] Lactated Ringers 1,000 ml 100 @ 50 mls/hr IV .Q20H [facility] Rx#:[id number] Nitroglycerin-D5w Pmx 50 1.5 mg In Dextrose/Water 1 250ml.bag @ 5 MCG/MIN 1.5 mls/hr IV .Q24H [facility] Rx#: [id number] Nitroglycerin-D5w Pmx 50 3.0 mg In Dextrose/Water 1 250ml.bag @ 5 MCG/MIN 1.5 mls/hr IV .Q24H [facility] Rx#: [id number] propofoL 1,000 mg In 85.143 Empty Bag 1 bag @ Titrate IV .Q0M [facility] Rx#: [id number] Oral 480 Output: Chest Tube Drainage [address] 20 MSCT x2 140 Drainage 0 Lt arm 0 Urine 690 Estimated Blood Loss 300 Other: Voiding Method Toilet Indwelling Catheter # Voids 3 2 # Bowel Movements 1 ABP, PAP, CO, CI - Last Documented Arterial Blood Pressure 135/67 Pulmonary Artery Pressure 40/14 Cardiac Output 6.4 Cardiac Index 3 - Exam No acute distress, sedated, with an orally placed endotracheal tube. HEENT examination is grossly unremarkable. Neck supple. Full range of motion. No adenopathy thyromegaly or neck vein distention. Cardiovascular examination reveals regular rhythm rate. S1-S2 normal. No S3 or S4. No discernible murmur noted. Heart rate 102 bpm. Lungs reveal clear breath sounds. Breath sounds are equal bilaterally. No adventitious lung sounds including wheezes rhonchi or crackles. Saturations are 100%. Abdomen soft without bowel sounds. No masses. Extremities are intact. No cyanosis clubbing or edema. Skin is without rash or lesion. Neurologic examination cannot be assessed. - Labs CBC & Chem 7: 12/12/23 12:32 12/12/23 12:32 Labs: Abnormal Lab Results - Last 24 Hours (Table) 12/11/23 12/12/23 12/12/23 Range/Units 12:04 08:38 09:49 WBC (3.8-10.6) k/uL RBC (4.30-5.90) m/uL Hgb (13.0-17.5) gm/dL Hct (39.0-53.0) % Plt Count (150-450) k/uL Neutrophils # (1.3-7.7) k/uL PT (10.0-12.5) sec INR (<1.2) APTT (22.0-30.0) sec ABG pH 7.34 L (7.35-7.45) ABG pCO2 (35-45) mmHg ABG pO2 274 H 265 H (83-108) mmHg ABG Total CO2 (19-24) mmol/L ABG O2 Saturation 99.0 H 99.0 H (94-97) % ABG Glucose 120 H (75-99) mg/dL ABG Lactic Acid 1.9 H (0.5-1.6) mmol/L Hemoglobin 12.6 L (13.0-17.5) gm/dL Chloride (98-107) mmol/L Carbon Dioxide (22-30) mmol/L Glucose (74-99) mg/dL POC Glucose (mg/dL) (70-110) mg/dL Calcium (8.4-10.2) mg/dL Total Protein (6.3-8.2) g/dL Arterial Blood Glucose 120 H (75-99) mg/dL Crossmatch See Detail 12/12/23 12/12/23 12/12/23 Range/Units 10:27 11:27 12:25 WBC (3.8-10.6) k/uL RBC (4.30-5.90) m/uL Hgb (13.0-17.5) gm/dL Hct (39.0-53.0) % Plt Count (150-450) k/uL Neutrophils # (1.3-7.7) k/uL PT (10.0-12.5) sec INR (<1.2) APTT (22.0-30.0) sec ABG pH (7.35-7.45) ABG pCO2 (35-45) mmHg ABG pO2 223 H 189 H (83-108) mmHg ABG Total CO2 (19-24) mmol/L ABG O2 Saturation 98.8 H 98.8 H (94-97) % ABG Glucose 129 H 122 H (75-99) mg/dL ABG Lactic Acid (0.5-1.6) mmol/L Hemoglobin 12.8 L 11.4 L (13.0-17.5) gm/dL Chloride (98-107) mmol/L Carbon Dioxide (22-30) mmol/L Glucose (74-99) mg/dL POC Glucose (mg/dL) 124 H (70-110) mg/dL Calcium (8.4-10.2) mg/dL Total Protein (6.3-8.2) g/dL Arterial Blood Glucose 129 H 122 H (75-99) mg/dL Crossmatch 12/12/23 12/12/23 12/12/23 Range/Units 12:32 12:32 12:32 WBC 15.8 H (3.8-10.6) k/uL RBC 3.78 L (4.30-5.90) m/uL Hgb 12.1 L D (13.0-17.5) gm/dL Hct 34.6 L (39.0-53.0) % Plt Count 116 L (150-450) k/uL Neutrophils # 13.5 H (1.3-7.7) k/uL PT 12.8 H (10.0-12.5) sec INR 1.2 H (<1.2) APTT 33.2 H (22.0-30.0) sec ABG pH (7.35-7.45) ABG pCO2 (35-45) mmHg ABG pO2 (83-108) mmHg ABG Total CO2 (19-24) mmol/L ABG O2 Saturation (94-97) % ABG Glucose (75-99) mg/dL ABG Lactic Acid (0.5-1.6) mmol/L Hemoglobin (13.0-17.5) gm/dL Chloride 112 H (98-107) mmol/L Carbon Dioxide 21 L (22-30) mmol/L Glucose 120 H (74-99) mg/dL POC Glucose (mg/dL) (70-110) mg/dL Calcium 8.0 L (8.4-10.2) mg/dL Total Protein 5.7 L (6.3-8.2) g/dL Arterial Blood Glucose (75-99) mg/dL Crossmatch 12/12/23 12/12/23 12/12/23 Range/Units 13:03 13:50 15:14 WBC (3.8-10.6) k/uL RBC (4.30-5.90) m/uL Hgb (13.0-17.5) gm/dL Hct (39.0-53.0) % Plt Count (150-450) k/uL Neutrophils # (1.3-7.7) k/uL PT (10.0-12.5) sec INR (<1.2) APTT (22.0-30.0) sec ABG pH 7.28 L (7.35-7.45) ABG pCO2 52 H (35-45) mmHg ABG pO2 >400 H (83-108) mmHg ABG Total CO2 26 H (19-24) mmol/L ABG O2 Saturation 99.5 H (94-97) % ABG Glucose (75-99) mg/dL ABG Lactic Acid (0.5-1.6) mmol/L Hemoglobin (13.0-17.5) gm/dL Chloride (98-107) mmol/L Carbon Dioxide (22-30) mmol/L Glucose (74-99) mg/dL POC Glucose (mg/dL) 133 H 137 H (70-110) mg/dL Calcium (8.4-10.2) mg/dL Total Protein (6.3-8.2) g/dL Arterial Blood Glucose (75-99) mg/dL Crossmatch Assessment and Plan Assessment: Postop day #0, status post two-vessel off-pump bypass, YANES to LAD, HIPOLITO to OM1. Routine postoperative ventilator management. History of hypertension. History of hyperlipidemia. History of osteoarthritis. Remote history of tobacco use, quit 1995. Carotid artery stenosis, asymptomatic. Plan: Plan dated December 12, 2023. The patient is seen today in room 251. He is postop day #0, status post two- vessel off-pump bypass. We have already made some ventilator changes, increasing the rate from 12-16, and dropping the FiO2 from 100% down to 50%. The patient continues on nitroglycerin, dexmedetomidine, insulin, lactated Ringer's, and propofol. Cardiac output was 6.6. Index was 3.1. We will continue to follow and make recommendations along the way. Time with Patient: Greater than 30
[2023-12-12 15:52] LABS: Basophils % (A) 0 %; Eosinophils # (A) 0.1 k/uL (0-0.7); Eosinophils % (A) 1 %; HCT 34.9 % (39.0-53.0); HGB 12.1 gm/dL (13.0-17.5); Lymphocytes # (A) 0.9 k/uL (1.0-4.8); Lymphocytes % (A) 6 %; MCH 31.6 pg (25.0-35.0); MCHC 34.7 g/dL (31.0-37.0); MCV 90.9 fL (80.0-100.0); Monocytes # (A) 0.6 k/uL (0-1.0); Monocytes % (A) 4 %; Neutrophils # (A) 12.7 k/uL (1.3-7.7); Neutrophils % (A) 88 %; Platelet Count 122 k/uL (150-450); RBC 3.83 m/uL (4.30-5.90); RDW 12.9 % (11.5-15.5); WBC 14.4 k/uL (3.8-10.6)
--- NOTE | 2023-12-12 16:02 | P.PN ---
Subjective Progress Note Date: 12/12/23 Hospital Course: Patient is a very pleasant 68-year-old male with a past medical history of carotid artery stenosis with right internal carotid artery of 70% stenosis and left internal carotid 50 to 60% stenosed, hyperlipidemia, osteoarthritis, and former nicotine dependence quitting smoking in 1995. He presented to the emergency department with a chief complaint of chest pain, dizziness, and palpitations. Patient reports chest pain has been ongoing x 1 week accompanied by significant dizziness/lightheadedness, palpitations, and shortness of breath. Patient describes pain to chest as a tightening sensation and denies radiation of pain. He reports all of these symptoms are exacerbated with exertion. He denies experiencing any headache, changes in vision or hearing, cough or congestion, nausea or vomiting, diaphoresis, or experiencing any numbness/tingling/weakness/swelling in his extremities. Patient reports his carotid artery stenosis was recently diagnosed and he was supposed to follow-up with vascular surgeon to schedule carotid endarterectomy, his at bedside reports that she called the office today secondary to discovering her 's new complaints of chest pain, dizziness/lightheadedness, palpitations, and exertional dyspnea and was told by the PA at the office to go to the emergency department immediately as Dr. Quiroz is currently out of town and he will need to be evaluated by one of his associates. He underwent evaluation in the emergency department. Vital signs upon arrival show blood pressure 171/94, heart rate 95, respiratory rate 20, temp 98.1 F, and SpO2 of 99% on room air. EKG completed showing normal sinus rhythm 87 bpm with T wave inversion in lateral lead aVL and mild ST depression in lead II. Chest x-ray completed negative for acute cardiopulmonary process. Labs completed and reviewed. CBC unremarkable. Coagulation profile normal findings. BMP revealing mild hyperchloremia with chloride of 108 otherwise normal findings. Blood glucose was 113. Liver profile unremarkable. Magnesium slightly low at 1.7. Troponin negative at less than 0.012. Patient was admitted under our services with consultation to cardiology and vascular surgery. Heart score 5. Troponins t rended overnight all negative at less than 0.012 x 3 draws. Cardiology consulted, took patient for cardiac stress test which is reported to be abnormal, with poor exercise tolerance and severe EKG changes. Patient scheduled for cardiac cath tomorrow morning. -Echocardiogram demonstrates ejection fraction of 50 to 55% with mildly increased septal wall thickness, normal RVSP; stress echo did demonstrate wall motion abnormality in the distribution of the LAD [facility] which showed significant 80-90% left main disease Subjective: Pt was seen at bedside, post CABG. Doing well. Still intubated. LEV Physical exam: General: intubated, sedated HEENT: normocephalic, atraumatic, no tracheal deviation Respiratory: symmetric chest rise, no cyanosis, ventilator dependent CVS: perfusing all extremities, no distal gangrene, bilateral pitting edema GI: soft, ND : no SPT, no CVAT, leahy is present Neuro: sedated Assessment and Plan of Care: Unstable Angina s/p CABG Carotid artery stenosis with reports of dizziness/lightheadedness Exertional dyspnea Hypertension Hyperlipidemia -Cardiology consulted, s/p [facility] which showed significant 80-90% left main disease -CT surgery consulted, s/p CABG 12/11 - doing well following procedure, plan for early extubation per pulmonology. Still on precedex. -Vascular surgery consulted, appreciate recommendations, outpatient follow-up -Telemetry monitoring -Cardiac diet -Continue aspirin 325 mg daily. Atorvastatin increased to 80 mg at bedtime. Patient started on metoprolol 25 mg twice daily. -Heparin drip, continue to monitor PTT for toxicity -Nitro gtt -Lipid profile: LDL - 85 CODE STATUS: Full code DVT prophylaxis: Heparin Anticipated discharge date: Clinical course to determine Anticipated discharge place: Home This document was prepared using [employer] dictation software. Please allow for errors in strategic analyst while rare they do occur. Objective - Vital Signs Vital signs: Vital Signs Temp 96.8 F L 12/12/23 15:00 Pulse 80 12/12/23 15:45 Resp 16 12/12/23 15:45 BP 138/64 12/12/23 06:05 Pulse Ox 98 12/12/23 15:45 FiO2 50 12/12/23 13:20 Intake & Output 12/11/23 12/12/23 12/12/23 18:59 06:59 18:59 Intake Total 663.938 979.251 Output Total 1310 Balance 663.938 -330.749 Weight 96.3 kg Intake: IV 102 NS for cardiac output 80 NS for pressure flush 18 Intake, IV Titration 183.938 877.251 Amount Albumin Human 5% 250 ml 500 In Empty Bag 1 bag @ 250 mls/hr IVPB Q1HR PRN Rx#: [id number] Clevidipine Butyrate 25 4 mg In Empty Bag 1 bag @ 1 MG/HR 2 mls/hr IV .Q24H [facility] Rx#:[id number] Clevidipine Butyrate 25 7.433 mg In Empty Bag 1 bag @ 1 MG/HR 2 mls/hr IV .Q24H [facility] Rx#:[id number] Dexmedetomidine/0.9% NaCl 14.526 (Pmx) 400 mcg In Empty Bag 1 bag @ Titrate IV . Q0M [facility] Rx#:[id number] Heparin Sod,Pork in 0.45% 183.938 NaCl 25,000 unit In 0.45 % NaCl 1 250ml.bag @ 12 UNITS/KG/HR 11.772 mls/hr IV .[id number] [facility] Rx#: [id number] Insulin Regular 100 unit 1 In Sodium Chloride 0.9% 100 ml @ Per Protocol IV .Q0M [facility] Rx#:[id number] Lactated Ringers 1,000 ml 150 @ 50 mls/hr IV .Q20H [facility] Rx#:[id number] Magnesium Sulfate-D5w Pmx 100 1 gm In Dextrose/Water 1 100ml.bag @ 100 mls/hr IVPB ONCE ONE Rx#: [id number] Nitroglycerin-D5w Pmx 50 1.5 mg In Dextrose/Water 1 250ml.bag @ 5 MCG/MIN 1.5 mls/hr IV .Q24H [facility] Rx#: [id number] Nitroglycerin-D5w Pmx 50 4.5 mg In Dextrose/Water 1 250ml.bag @ 5 MCG/MIN 1.5 mls/hr IV .Q24H [facility] Rx#: [id number] propofoL 1,000 mg In 94.292 Empty Bag 1 bag @ Titrate IV .Q0M [facility] Rx#: [id number] Oral 480 Output: Chest Tube Drainage [address] 25 MSCT x2 170 Drainage 0 Lt arm 0 Urine 815 Estimated Blood Loss 300 Other: Voiding Method Toilet Indwelling Catheter # Voids 3 2 # Bowel Movements 1 ABP, PAP, CO, CI - Last Documented Arterial Blood Pressure 107/52 Pulmonary Artery Pressure 27/16 Cardiac Output 6.6 Cardiac Index 3.1 - Labs CBC & Chem 7: 12/12/23 15:05 12/12/23 12:32 Labs: Abnormal Lab Results - Last 24 Hours (Table) 12/11/23 12/12/23 12/12/23 Range/Units 12:04 08:38 09:49 WBC (3.8-10.6) k/uL RBC (4.30-5.90) m/uL Hgb (13.0-17.5) gm/dL Hct (39.0-53.0) % Plt Count (150-450) k/uL Neutrophils # (1.3-7.7) k/uL Lymphocytes # (1.0-4.8) k/uL PT (10.0-12.5) sec INR (<1.2) APTT (22.0-30.0) sec ABG pH 7.34 L (7.35-7.45) ABG pCO2 (35-45) mmHg ABG pO2 274 H 265 H (83-108) mmHg ABG Total CO2 (19-24) mmol/L ABG O2 Saturation 99.0 H 99.0 H (94-97) % ABG Glucose 120 H (75-99) mg/dL ABG Lactic Acid 1.9 H (0.5-1.6) mmol/L Hemoglobin 12.6 L (13.0-17.5) gm/dL Chloride (98-107) mmol/L Carbon Dioxide (22-30) mmol/L Glucose (74-99) mg/dL POC Glucose (mg/dL) (70-110) mg/dL Calcium (8.4-10.2) mg/dL Total Protein (6.3-8.2) g/dL Arterial Blood Glucose 120 H (75-99) mg/dL Crossmatch See Detail 12/12/23 12/12/23 12/12/23 Range/Units 10:27 11:27 12:25 WBC (3.8-10.6) k/uL RBC (4.30-5.90) m/uL Hgb (13.0-17.5) gm/dL Hct (39.0-53.0) % Plt Count (150-450) k/uL Neutrophils # (1.3-7.7) k/uL Lymphocytes # (1.0-4.8) k/uL PT (10.0-12.5) sec INR (<1.2) APTT (22.0-30.0) sec ABG pH (7.35-7.45) ABG pCO2 (35-45) mmHg ABG pO2 223 H 189 H (83-108) mmHg ABG Total CO2 (19-24) mmol/L ABG O2 Saturation 98.8 H 98.8 H (94-97) % ABG Glucose 129 H 122 H (75-99) mg/dL ABG Lactic Acid (0.5-1.6) mmol/L Hemoglobin 12.8 L 11.4 L (13.0-17.5) gm/dL Chloride (98-107) mmol/L Carbon Dioxide (22-30) mmol/L Glucose (74-99) mg/dL POC Glucose (mg/dL) 124 H (70-110) mg/dL Calcium (8.4-10.2) mg/dL Total Protein (6.3-8.2) g/dL Arterial Blood Glucose 129 H 122 H (75-99) mg/dL Crossmatch 12/12/23 12/12/23 12/12/23 Range/Units 12:32 12:32 12:32 WBC 15.8 H (3.8-10.6) k/uL RBC 3.78 L (4.30-5.90) m/uL Hgb 12.1 L D (13.0-17.5) gm/dL Hct 34.6 L (39.0-53.0) % Plt Count 116 L (150-450) k/uL Neutrophils # 13.5 H (1.3-7.7) k/uL Lymphocytes # (1.0-4.8) k/uL PT 12.8 H (10.0-12.5) sec INR 1.2 H (<1.2) APTT 33.2 H (22.0-30.0) sec ABG pH (7.35-7.45) ABG pCO2 (35-45) mmHg ABG pO2 (83-108) mmHg ABG Total CO2 (19-24) mmol/L ABG O2 Saturation (94-97) % ABG Glucose (75-99) mg/dL ABG Lactic Acid (0.5-1.6) mmol/L Hemoglobin (13.0-17.5) gm/dL Chloride 112 H (98-107) mmol/L Carbon Dioxide 21 L (22-30) mmol/L Glucose 120 H (74-99) mg/dL POC Glucose (mg/dL) (70-110) mg/dL Calcium 8.0 L (8.4-10.2) mg/dL Total Protein 5.7 L (6.3-8.2) g/dL Arterial Blood Glucose (75-99) mg/dL Crossmatch 12/12/23 12/12/23 12/12/23 Range/Units 13:03 13:50 15:05 WBC 14.4 H (3.8-10.6) k/uL RBC 3.83 L (4.30-5.90) m/uL Hgb 12.1 L (13.0-17.5) gm/dL Hct 34.9 L (39.0-53.0) % Plt Count 122 L (150-450) k/uL Neutrophils # 12.7 H (1.3-7.7) k/uL Lymphocytes # 0.9 L (1.0-4.8) k/uL PT (10.0-12.5) sec INR (<1.2) APTT (22.0-30.0) sec ABG pH 7.28 L (7.35-7.45) ABG pCO2 52 H (35-45) mmHg ABG pO2 >400 H (83-108) mmHg ABG Total CO2 26 H (19-24) mmol/L ABG O2 Saturation 99.5 H (94-97) % ABG Glucose (75-99) mg/dL ABG Lactic Acid (0.5-1.6) mmol/L Hemoglobin (13.0-17.5) gm/dL Chloride (98-107) mmol/L Carbon Dioxide (22-30) mmol/L Glucose (74-99) mg/dL POC Glucose (mg/dL) 133 H (70-110) mg/dL Calcium (8.4-10.2) mg/dL Total Protein (6.3-8.2) g/dL Arterial Blood Glucose (75-99) mg/dL Crossmatch 12/12/23 Range/Units 15:14 WBC (3.8-10.6) k/uL RBC (4.30-5.90) m/uL Hgb (13.0-17.5) gm/dL Hct (39.0-53.0) % Plt Count (150-450) k/uL Neutrophils # (1.3-7.7) k/uL Lymphocytes # (1.0-4.8) k/uL PT (10.0-12.5) sec INR (<1.2) APTT (22.0-30.0) sec ABG pH (7.35-7.45) ABG pCO2 (35-45) mmHg ABG pO2 (83-108) mmHg ABG Total CO2 (19-24) mmol/L ABG O2 Saturation (94-97) % ABG Glucose (75-99) mg/dL ABG Lactic Acid (0.5-1.6) mmol/L Hemoglobin (13.0-17.5) gm/dL Chloride (98-107) mmol/L Carbon Dioxide (22-30) mmol/L Glucose (74-99) mg/dL POC Glucose (mg/dL) 137 H (70-110) mg/dL Calcium (8.4-10.2) mg/dL Total Protein (6.3-8.2) g/dL Arterial Blood Glucose (75-99) mg/dL Crossmatch
[2023-12-12 16:05] LABS: Glucose,Whole Blood 139 mg/dL (70-110)
[2023-12-12] MEDS: HEPARIN SODIUM,PORCINE 5,000 UNIT/ML 1 ML VIAL SQ SCH (16:56)
[2023-12-12 17:16] LABS: Glucose,Whole Blood 138 mg/dL (70-110)
[2023-12-12] MEDS: fentaNYL (PF) 50 MCG/ML 2 ML AMP ONE (17:41)
[2023-12-12] MEDS: KETOROLAC 15 MG/ML 1 ML VIAL ONE (18:13)
[2023-12-12 18:38] LABS: Glucose,Whole Blood 126 mg/dL (70-110)
[2023-12-12 18:47] LABS: Basophils % (A) 0 %; Eosinophils % (A) 0 %; HCT 33.9 % (39.0-53.0); HGB 12.2 gm/dL (13.0-17.5); Lymphocytes # (A) 0.6 k/uL (1.0-4.8); Lymphocytes % (A) 4 %; MCH 32.4 pg (25.0-35.0); MCHC 35.9 g/dL (31.0-37.0); MCV 90.3 fL (80.0-100.0); Mean Platelet Volume 9.8; Monocytes # (A) 0.5 k/uL (0-1.0); Monocytes % (A) 4 %; Neutrophils # (A) 13.6 k/uL (1.3-7.7); Neutrophils % (A) 91 %; Platelet Count 110 k/uL (150-450); RBC 3.75 m/uL (4.30-5.90); WBC 14.9 k/uL (3.8-10.6)
[2023-12-12] MEDS: hydrALAZINE HCL 20 MG/ML 1 ML VIAL IVP PRN (18:58)
[2023-12-12] MEDS: METOPROLOL TARTRATE 25 MG TAB PO STA (19:53)
[2023-12-12 20:13] LABS: Glucose,Whole Blood 124 mg/dL (70-110)
[2023-12-12] MEDS: METOPROLOL TARTRATE 5 MG/5 ML VIAL IVP STA (20:49)
[2023-12-12 21:01] LABS: Glucose,Whole Blood 126 mg/dL (70-110)
[2023-12-12 22:14] LABS: Glucose,Whole Blood 119 mg/dL (70-110)
[2023-12-12 23:10] LABS: Glucose,Whole Blood 113 mg/dL (70-110)
[2023-12-12 23:54] LABS: Glucose,Whole Blood 114 mg/dL (70-110)
[2023-12-13] MEDS: KETOROLAC 15 MG/ML 1 ML VIAL IVP PRN
[2023-12-13 00:57] LABS: Glucose,Whole Blood 124 mg/dL (70-110)
[2023-12-13 02:00] LABS: Glucose,Whole Blood 121 mg/dL (70-110)
[2023-12-13 02:54] LABS: Glucose,Whole Blood 121 mg/dL (70-110)
[2023-12-13 04:08] LABS: Glucose,Whole Blood 126 mg/dL (70-110)
[2023-12-13 04:22] LABS: Basophils % (A) 0 %; Eosinophils % (A) 0 %; HCT 35.4 % (39.0-53.0); HGB 11.9 gm/dL (13.0-17.5); Lymphocytes # (A) 1.1 k/uL (1.0-4.8); Lymphocytes % (A) 8 %; MCH 30.7 pg (25.0-35.0); MCHC 33.7 g/dL (31.0-37.0); MCV 91.2 fL (80.0-100.0); Mean Platelet Volume 10.1; Monocytes # (A) 0.7 k/uL (0-1.0); Monocytes % (A) 5 %; Neutrophils # (A) 11.5 k/uL (1.3-7.7); Neutrophils % (A) 85 %; Platelet Count 134 k/uL (150-450); RBC 3.89 m/uL (4.30-5.90); RDW 12.8 % (11.5-15.5); WBC 13.6 k/uL (3.8-10.6)
[2023-12-13 04:29] LABS: Ionized Calcium 4.7 mg/dL (4.5-5.3)
[2023-12-13 04:39] LABS: ALT 20 U/L (4-49); AST 33 U/L (17-59); African American GFR (CKD) >90 (>60 ml/min/1.73 sqM); Albumin 3.8 g/dL (3.5-5.0); Alkaline Phosphatase 46 U/L (38-126); Anion Gap 6 mmol/L; Blood Urea Nitrogen 14 mg/dL (9-20); Calcium 8.5 mg/dL (8.4-10.2); Carbon Dioxide 23 mmol/L (22-30); Chloride 108 mmol/L (98-107); Glucose 122 mg/dL (74-99); Magnesium 1.6 mg/dL (1.6-2.3); Non-African American GFR(CKD) >90 (>60 ml/min/1.73 sqM); Potassium 3.7 mmol/L (3.5-5.1); Sodium 137 mmol/L (137-145); Total Bilirubin 0.9 mg/dL (0.2-1.3); Total Protein 5.8 g/dL (6.3-8.2)
[2023-12-13] MEDS: POTASSIUM CHLORIDE 10 MEQ in WATER FOR INJECTION 1 100ML.BAG IVPB SCH (05:01)
[2023-12-13] MEDS: MAGNESIUM SULFATE-D5W PMX 1 GM in DEXTROSE/WATER 1 100ML.BAG IVPB SCH (05:02)
[2023-12-13 05:13] LABS: Glucose,Whole Blood 124 mg/dL (70-110)
[2023-12-13 06:12] LABS: Glucose,Whole Blood 143 mg/dL (70-110)
[2023-12-13 07:01] LABS: Glucose,Whole Blood 136 mg/dL (70-110)
[2023-12-13 08:06] LABS: Glucose,Whole Blood 135 mg/dL (70-110)
--- NOTE | 2023-12-13 08:09 | P.PN ---
Subjective Progress Note Date: 12/13/23 Principal diagnosis: Triple-vessel coronary artery disease, left main disease, unstable angina. Known history of carotid artery stenosis being followed outpatient by Dr. Quiroz, hypertension, hyperlipidemia, osteoarthritis, previous tobacco dependence POD#1 off pump coronary artery bypass grafting x 2, left internal thoracic artery (in-situ) to left anterior descending coronary artery, left radial artery from aorta to obtuse marginal artery, left atrial appendage ligation using #35mm AtriClip, endoscopic left radial artery harvest, trans-esophageal echo The patient was seen and examined this morning with Dr. Goldstein sitting up in a recliner in the intensive care unit in no acute distress. Does complain of expected post surgical pain which is controlled on current medication regimen, denies shortness of breath. Remains in sinus rhythm to sinus tach, blood pressure stable and occasionally high. Remains on IV NTG and cardizem for BP and vessel spasm prophylaxis. Currently on room air with oxygen saturations in the low 90s. CXR, labs reviews reviewed. Right internal jugular swan/cordis, right radial arterial line, mediastinal/right/left chest tubes remain. No other new concerns. Objective - Vital Signs Vital signs: Vital Signs Temp 100.0 F H 12/13/23 06:00 Pulse 96 12/13/23 07:00 Resp 18 12/13/23 07:00 BP 128/57 12/13/23 06:00 Pulse Ox 93 L 12/13/23 07:00 FiO2 50 12/12/23 16:14 Intake & Output 12/12/23 12/13/23 12/13/23 18:59 06:59 18:59 Intake Total 5628.330 7672.465 109.295 Output Total 1705 1310 85 Balance -130.456 935.465 24.295 Weight 99.8 kg Intake: IV 169 2019 59 Albumin Human 5% 250 ml 1250 In Empty Bag 1 bag @ 250 mls/hr IVPB Q1HR PRN Rx#: [id number] Lactated Ringers 1,000 ml 500 50 @ 20 mls/hr IV .Q24H SAJI Rx#:[id number] NS for cardiac output 120 120 NS for pressure flush 45 99 9 ceFAZolin 2 gm In Sodium 50 Chloride 0.9% 50 ml @ 100 mls/hr IVPB ONCE ONE Rx# :[id number] Intake, IV Titration 1345.544 156.465 0.295 Amount Albumin Human 5% 250 ml 750 In Empty Bag 1 bag @ 250 mls/hr IVPB Q1HR PRN Rx#: [id number] Clevidipine Butyrate 25 4 mg In Empty Bag 1 bag @ 1 MG/HR 2 mls/hr IV .Q24H SAJI Rx#:[id number] Clevidipine Butyrate 25 7.433 17.568 mg In Empty Bag 1 bag @ 1 MG/HR 2 mls/hr IV .Q24H SAJI Rx#:[id number] Dexmedetomidine/0.9% NaCl 25.319 (Pmx) 400 mcg In Empty Bag 1 bag @ Titrate IV . Q0M SAJI Rx#:[id number] Diltiazem 125 mg In 55.584 Sodium Chloride 0.9% 100 ml @ 5 MG/HR 5 mls/hr IV .Q24H SAJI Rx#:[id number] Insulin Regular 100 unit 4 9.913 0.295 In Sodium Chloride 0.9% 100 ml @ Per Protocol IV .Q0M SAJI Rx#:[id number] Lactated Ringers 1,000 ml 300 50 @ 20 mls/hr IV .Q24H SAJI Rx#:[id number] Magnesium Sulfate-D5w Pmx 100 1 gm In Dextrose/Water 1 100ml.bag @ 100 mls/hr IVPB ONCE ONE Rx#: [id number] Nitroglycerin-D5w Pmx 50 1.5 mg In Dextrose/Water 1 250ml.bag @ 5 MCG/MIN 1.5 mls/hr IV .Q24H SAJI Rx#: [id number] Nitroglycerin-D5w Pmx 50 9.0 23.4 mg In Dextrose/Water 1 250ml.bag @ 5 MCG/MIN 1.5 mls/hr IV .Q24H SAJI Rx#: [id number] ceFAZolin 2 gm In Sodium 50 Chloride 0.9% 50 ml @ 100 mls/hr IVPB Q8HR SAJI Rx# :[id number] propofoL 1,000 mg In 94.292 Empty Bag 1 bag @ Titrate IV .Q0M SAJI Rx#: [id number] Oral 70 50 Other 60 Output: Chest Tube Drainage 280 [address] 40 250 40 MSCT x1 240 430 10 Gastric Drainage 100 Drainage 0 Lt arm 0 Urine 1025 630 35 Estimated Blood Loss 300 Other: Voiding Method Indwelling Catheter Indwelling Catheter ABP, PAP, CO, CI - Last Documented Arterial Blood Pressure 97/40 Pulmonary Artery Pressure 25/7 Cardiac Output 6.8 Cardiac Index 3.2 - Exam CONSTITUTIONAL: Appears comfortable, cooperative, no acute distress RESPIRATORY: Lungs sounds diminished bilaterally. Respirations even, nonlabored. Currently on room air with oxygen saturation 92%. Able to achieve 1250 mL on incentive spirometry. Strong cough. CARDIOVASCULAR: S1, S2 present. Regular rate and rhythm, sinus rhythm to sinus tach on telemetry. Sternum stable. Palpable peripheral pulses bilaterally. No edema present. No calf pain or tenderness noted. Heart hugger in place with patient demonstrating appropriate use. Antiembolism stockings, SCDs present. GASTROINTESTINAL: Abdomen soft, nontender, nondistended. Hypoactive bowel sounds present 4 quadrants. Tolerating clear liquids. Denies flatus GENITOURINARY: Starks present draining clear, yellow urine. Output overnight 35-50 mL per hour INTEGUMENTARY: Skin is warm and dry with evidence of good perfusion. Anterior chest incision well approximated and covered with dry intact dressing. Left radial artery harvest site well approximated without redness, MAILE drain present with no drainage. NEUROLOGIC: Cranial nerves II through XII intact MUSKULOSKELETAL: Able to move all extremities, strength equal bilaterally, gait normal PSYCHIATRIC: Alert and oriented to person place and time, appropriate affect, intact judgment and insight INVASIVE LINES AND TUBES: Mediastinal/left/right pleural chest tubes present and connected to wall suction, no air leaks present in pleural chest tubes, tiny intermittent air leak present in med CT with forceful coughing. Mediastinal tube with 280 mL serosanguineous drainage overnight, 700 mL since surgery. Left/right pleural chest tubes with 200 mL serosanguineous drainage overnight, 350 mL since surgery. Ventricular epicardial pacemaker wires present, connected to generator, backup rate 50 bpm. Right internal jugular Kent/Cordis, right r adial arterial line present. Last CO/CI 6.8/3.2, PA 22/6, CVP 4. - Allied health notes Allied health notes reviewed: nursing - Labs CBC & Chem 7: 12/13/23 04:00 12/13/23 04:00 Labs: Abnormal Lab Results - Last 24 Hours (Table) 12/11/23 12/12/23 12/12/23 Range/Units 12:04 08:38 09:49 WBC (3.8-10.6) k/uL RBC (4.30-5.90) m/uL Hgb (13.0-17.5) gm/dL Hct (39.0-53.0) % Plt Count (150-450) k/uL Neutrophils # (1.3-7.7) k/uL Lymphocytes # (1.0-4.8) k/uL PT (10.0-12.5) sec INR (<1.2) APTT (22.0-30.0) sec ABG pH 7.34 L (7.35-7.45) ABG pCO2 (35-45) mmHg ABG pO2 274 H 265 H (83-108) mmHg ABG Total CO2 (19-24) mmol/L ABG O2 Saturation 99.0 H 99.0 H (94-97) % ABG Glucose 120 H (75-99) mg/dL ABG Lactic Acid 1.9 H (0.5-1.6) mmol/L Hemoglobin 12.6 L (13.0-17.5) gm/dL Chloride (98-107) mmol/L Carbon Dioxide (22-30) mmol/L Glucose (74-99) mg/dL POC Glucose (mg/dL) (70-110) mg/dL Calcium (8.4-10.2) mg/dL Total Protein (6.3-8.2) g/dL Arterial Blood Glucose 120 H (75-99) mg/dL Crossmatch See Detail 12/12/23 12/12/23 12/12/23 Range/Units 10:27 11:27 12:25 WBC (3.8-10.6) k/uL RBC (4.30-5.90) m/uL Hgb (13.0-17.5) gm/dL Hct (39.0-53.0) % Plt Count (150-450) k/uL Neutrophils # (1.3-7.7) k/uL Lymphocytes # (1.0-4.8) k/uL PT (10.0-12.5) sec INR (<1.2) APTT (22.0-30.0) sec ABG pH (7.35-7.45) ABG pCO2 (35-45) mmHg ABG pO2 223 H 189 H (83-108) mmHg ABG Total CO2 (19-24) mmol/L ABG O2 Saturation 98.8 H 98.8 H (94-97) % ABG Glucose 129 H 122 H (75-99) mg/dL ABG Lactic Acid (0.5-1.6) mmol/L Hemoglobin 12.8 L 11.4 L (13.0-17.5) gm/dL Chloride (98-107) mmol/L Carbon Dioxide (22-30) mmol/L Glucose (74-99) mg/dL POC Glucose (mg/dL) 124 H (70-110) mg/dL Calcium (8.4-10.2) mg/dL Total Protein (6.3-8.2) g/dL Arterial Blood Glucose 129 H 122 H (75-99) mg/dL Crossmatch 12/12/23 12/12/23 12/12/23 Range/Units 12:32 12:32 12:32 WBC 15.8 H (3.8-10.6) k/uL RBC 3.78 L (4.30-5.90) m/uL Hgb 12.1 L D (13.0-17.5) gm/dL Hct 34.6 L (39.0-53.0) % Plt Count 116 L (150-450) k/uL Neutrophils # 13.5 H (1.3-7.7) k/uL Lymphocytes # (1.0-4.8) k/uL PT 12.8 H (10.0-12.5) sec INR 1.2 H (<1.2) APTT 33.2 H (22.0-30.0) sec ABG pH (7.35-7.45) ABG pCO2 (35-45) mmHg ABG pO2 (83-108) mmHg ABG Total CO2 (19-24) mmol/L ABG O2 Saturation (94-97) % ABG Glucose (75-99) mg/dL ABG Lactic Acid (0.5-1.6) mmol/L Hemoglobin (13.0-17.5) gm/dL Chloride 112 H (98-107) mmol/L Carbon Dioxide 21 L (22-30) mmol/L Glucose 120 H (74-99) mg/dL POC Glucose (mg/dL) (70-110) mg/dL Calcium 8.0 L (8.4-10.2) mg/dL Total Protein 5.7 L (6.3-8.2) g/dL Arterial Blood Glucose (75-99) mg/dL Crossmatch 12/12/23 12/12/23 12/12/23 Range/Units 13:03 13:50 15:05 WBC 14.4 H (3.8-10.6) k/uL RBC 3.83 L (4.30-5.90) m/uL Hgb 12.1 L (13.0-17.5) gm/dL Hct 34.9 L (39.0-53.0) % Plt Count 122 L (150-450) k/uL Neutrophils # 12.7 H (1.3-7.7) k/uL Lymphocytes # 0.9 L (1.0-4.8) k/uL PT (10.0-12.5) sec INR (<1.2) APTT (22.0-30.0) sec ABG pH 7.28 L (7.35-7.45) ABG pCO2 52 H (35-45) mmHg ABG pO2 >400 H (83-108) mmHg ABG Total CO2 26 H (19-24) mmol/L ABG O2 Saturation 99.5 H (94-97) % ABG Glucose (75-99) mg/dL ABG Lactic Acid (0.5-1.6) mmol/L Hemoglobin (13.0-17.5) gm/dL Chloride (98-107) mmol/L Carbon Dioxide (22-30) mmol/L Glucose (74-99) mg/dL POC Glucose (mg/dL) 133 H (70-110) mg/dL Calcium (8.4-10.2) mg/dL Total Protein (6.3-8.2) g/dL Arterial Blood Glucose (75-99) mg/dL Crossmatch 12/12/23 12/12/23 12/12/23 Range/Units 15:14 16:03 17:15 WBC (3.8-10.6) k/uL RBC (4.30-5.90) m/uL Hgb (13.0-17.5) gm/dL Hct (39.0-53.0) % Plt Count (150-450) k/uL Neutrophils # (1.3-7.7) k/uL Lymphocytes # (1.0-4.8) k/uL PT (10.0-12.5) sec INR (<1.2) APTT (22.0-30.0) sec ABG pH (7.35-7.45) ABG pCO2 (35-45) mmHg ABG pO2 (83-108) mmHg ABG Total CO2 (19-24) mmol/L ABG O2 Saturation (94-97) % ABG Glucose (75-99) mg/dL ABG Lactic Acid (0.5-1.6) mmol/L Hemoglobin (13.0-17.5) gm/dL Chloride (98-107) mmol/L Carbon Dioxide (22-30) mmol/L Glucose (74-99) mg/dL POC Glucose (mg/dL) 137 H 139 H 138 H (70-110) mg/dL Calcium (8.4-10.2) mg/dL Total Protein (6.3-8.2) g/dL Arterial Blood Glucose (75-99) mg/dL Crossmatch 12/12/23 12/12/23 12/12/23 Range/Units 18:30 18:36 20:11 WBC 14.9 H (3.8-10.6) k/uL RBC 3.75 L (4.30-5.90) m/uL Hgb 12.2 L (13.0-17.5) gm/dL Hct 33.9 L (39.0-53.0) % Plt Count 110 L (150-450) k/uL Neutrophils # 13.6 H (1.3-7.7) k/uL Lymphocytes # 0.6 L (1.0-4.8) k/uL PT (10.0-12.5) sec INR (<1.2) APTT (22.0-30.0) sec ABG pH (7.35-7.45) ABG pCO2 (35-45) mmHg ABG pO2 (83-108) mmHg ABG Total CO2 (19-24) mmol/L ABG O2 Saturation (94-97) % ABG Glucose (75-99) mg/dL ABG Lactic Acid (0.5-1.6) mmol/L Hemoglobin (13.0-17.5) gm/dL Chloride (98-107) mmol/L Carbon Dioxide (22-30) mmol/L Glucose (74-99) mg/dL POC Glucose (mg/dL) 126 H 124 H (70-110) mg/dL Calcium (8.4-10.2) mg/dL Total Protein (6.3-8.2) g/dL Arterial Blood Glucose (75-99) mg/dL Crossmatch 12/12/23 12/12/23 12/12/23 Range/Units 20:59 22:10 23:08 WBC (3.8-10.6) k/uL RBC (4.30-5.90) m/uL Hgb (13.0-17.5) gm/dL Hct (39.0-53.0) % Plt Count (150-450) k/uL Neutrophils # (1.3-7.7) k/uL Lymphocytes # (1.0-4.8) k/uL PT (10.0-12.5) sec INR (<1.2) APTT (22.0-30.0) sec ABG pH (7.35-7.45) ABG pCO2 (35-45) mmHg ABG pO2 (83-108) mmHg ABG Total CO2 (19-24) mmol/L ABG O2 Saturation (94-97) % ABG Glucose (75-99) mg/dL ABG Lactic Acid (0.5-1.6) mmol/L Hemoglobin (13.0-17.5) gm/dL Chloride (98-107) mmol/L Carbon Dioxide (22-30) mmol/L Glucose (74-99) mg/dL POC Glucose (mg/dL) 126 H 119 H 113 H (70-110) mg/dL Calcium (8.4-10.2) mg/dL Total Protein (6.3-8.2) g/dL Arterial Blood Glucose (75-99) mg/dL Crossmatch 12/12/23 12/13/23 12/13/23 Range/Units 23:51 00:55 01:57 WBC (3.8-10.6) k/uL RBC (4.30-5.90) m/uL Hgb (13.0-17.5) gm/dL Hct (39.0-53.0) % Plt Count (150-450) k/uL Neutrophils # (1.3-7.7) k/uL Lymphocytes # (1.0-4.8) k/uL PT (10.0-12.5) sec INR (<1.2) APTT (22.0-30.0) sec ABG pH (7.35-7.45) ABG pCO2 (35-45) mmHg ABG pO2 (83-108) mmHg ABG Total CO2 (19-24) mmol/L ABG O2 Saturation (94-97) % ABG Glucose (75-99) mg/dL ABG Lactic Acid (0.5-1.6) mmol/L Hemoglobin (13.0-17.5) gm/dL Chloride (98-107) mmol/L Carbon Dioxide (22-30) mmol/L Glucose (74-99) mg/dL POC Glucose (mg/dL) 114 H 124 H 121 H (70-110) mg/dL Calcium (8.4-10.2) mg/dL Total Protein (6.3-8.2) g/dL Arterial Blood Glucose (75-99) mg/dL Crossmatch 12/13/23 12/13/23 12/13/23 Range/Units 02:51 04:00 04:00 WBC 13.6 H (3.8-10.6) k/uL RBC 3.89 L (4.30-5.90) m/uL Hgb 11.9 L (13.0-17.5) gm/dL Hct 35.4 L (39.0-53.0) % Plt Count 134 L (150-450) k/uL Neutrophils # 11.5 H (1.3-7.7) k/uL Lymphocytes # (1.0-4.8) k/uL PT (10.0-12.5) sec INR (<1.2) APTT (22.0-30.0) sec ABG pH (7.35-7.45) ABG pCO2 (35-45) mmHg ABG pO2 (83-108) mmHg ABG Total CO2 (19-24) mmol/L ABG O2 Saturation (94-97) % ABG Glucose (75-99) mg/dL ABG Lactic Acid (0.5-1.6) mmol/L Hemoglobin (13.0-17.5) gm/dL Chloride 108 H (98-107) mmol/L Carbon Dioxide (22-30) mmol/L Glucose 122 H (74-99) mg/dL POC Glucose (mg/dL) 121 H (70-110) mg/dL Calcium (8.4-10.2) mg/dL Total Protein 5.8 L (6.3-8.2) g/dL Arterial Blood Glucose (75-99) mg/dL Crossmatch 12/13/23 12/13/23 12/13/23 Range/Units 04:04 05:09 06:05 WBC (3.8-10.6) k/uL RBC (4.30-5.90) m/uL Hgb (13.0-17.5) gm/dL Hct (39.0-53.0) % Plt Count (150-450) k/uL Neutrophils # (1.3-7.7) k/uL Lymphocytes # (1.0-4.8) k/uL PT (10.0-12.5) sec INR (<1.2) APTT (22.0-30.0) sec ABG pH (7.35-7.45) ABG pCO2 (35-45) mmHg ABG pO2 (83-108) mmHg ABG Total CO2 (19-24) mmol/L ABG O2 Saturation (94-97) % ABG Glucose (75-99) mg/dL ABG Lactic Acid (0.5-1.6) mmol/L Hemoglobin (13.0-17.5) gm/dL Chloride (98-107) mmol/L Carbon Dioxide (22-30) mmol/L Glucose (74-99) mg/dL POC Glucose (mg/dL) 126 H 124 H 143 H (70-110) mg/dL Calcium (8.4-10.2) mg/dL Total Protein (6.3-8.2) g/dL Arterial Blood Glucose (75-99) mg/dL Crossmatch 12/13/23 Range/Units 06:58 WBC (3.8-10.6) k/uL RBC (4.30-5.90) m/uL Hgb (13.0-17.5) gm/dL Hct (39.0-53.0) % Plt Count (150-450) k/uL Neutrophils # (1.3-7.7) k/uL Lymphocytes # (1.0-4.8) k/uL PT (10.0-12.5) sec INR (<1.2) APTT (22.0-30.0) sec ABG pH (7.35-7.45) ABG pCO2 (35-45) mmHg ABG pO2 (83-108) mmHg ABG Total CO2 (19-24) mmol/L ABG O2 Saturation (94-97) % ABG Glucose (75-99) mg/dL ABG Lactic Acid (0.5-1.6) mmol/L Hemoglobin (13.0-17.5) gm/dL Chloride (98-107) mmol/L Carbon Dioxide (22-30) mmol/L Glucose (74-99) mg/dL POC Glucose (mg/dL) 136 H (70-110) mg/dL Calcium (8.4-10.2) mg/dL Total Protein (6.3-8.2) g/dL Arterial Blood Glucose (75-99) mg/dL Crossmatch - Imaging and Cardiology Chest x-ray: image reviewed Assessment and Plan Assessment: Triple-vessel coronary artery disease, left main disease, unstable angina, status post 2 vessel off pump CABG Known history of carotid artery stenosis being followed outpatient by Dr. Quiroz, remains asymptomatic Hypertension Hyperlipidemia, treated, cholesterol 164, LDL 85 Osteoarthritis Previous tobacco dependence, preoperative FEV1 105% of predicted Plan: Continue to maximize medical therapy with aspirin, Plavix, statin, beta-poppy. Will increase beta-poppy therapy as tolerated Discontinue IV nitro, Cardizem. Add oral calcium channel poppy for radial artery spasm prophylaxis Encourage incentive spirometry use 10 times every hour while awake. Bronchodilators per pulmonology Increase activity, ambulate as tolerated. PT/OT/cardiac rehab consulted Will monitor daily labs and x-rays. Electrolyte replacement per protocol GI/DVT prophylaxis Pain control per current medication regimen Insulin management per internal medicine, patient is not diabetic, hemoglobin A1c 5.4%, patient should remain on continuous IV insulin for 48 hours then may transition to subcutaneous per protocol Discontinue Kent, connect Cordis to continuous CVP monitoring Continue all chest tubes for another 24 hours, monitor and record output Continue Starks for another 24 hours, continue to record strict accurate intake and output Daily weights More recommendations to follow based on patient's progress
[2023-12-13] MEDS: METOPROLOL TARTRATE 25 MG TAB PO SCH ×2 (08:36→16:27)
[2023-12-13] MEDS: ASPIRIN 325 MG TAB PO SCH (08:36)
[2023-12-13] MEDS: CLOPIDOGREL 75 MG TAB PO SCH (08:36)
[2023-12-13] MEDS: PANTOPRAZOLE 40 MG/10 ML VIAL IVP SCH (08:36)
[2023-12-13] MEDS: amLODIPine 5 MG TAB PO SCH (08:37)
[2023-12-13] MEDS ORDERED: METOPROLOL TARTRATE 12.5 MG TAB PO SCH (09:00)
[2023-12-13 10:14] LABS: Glucose,Whole Blood 125 mg/dL (70-110)
--- NOTE | 2023-12-13 10:28 | P.PN ---
Subjective Progress Note Date: 12/13/23 Principal diagnosis: Coronary disease. This is a very pleasant 68-year-old male patient with a known history of hypertension, hyperlipidemia, osteoarthritis, carotid artery stenosis, former smoker of 20 years however quit back in 1995. He had not been on any inhalers or pulmonary medications in the outpatient setting. He had been quite active riding his bike frequently up to 10 miles at a time. He had presented to the emergency room on 12/06/2023 with complaints of chest pain and shortness of breath. Catheterization on 12/07/2023 revealed one-vessel coronary artery disea se with severe left main stenosis up to 80 to 90%. The plan is for coronary artery bypass grafting on 12/12/2023. He is currently sitting up in a chair. Awake and alert in no acute distress. Maintaining good O2 saturations in the 90s on room air. He has a heparin drip as well as a nitroglycerin drip at 2.5 mcg/min. He denies any chest pain. No worsening shortness of breath, cough or congestion. He is working well with the incentive spirometer. Count 7.2. Hemoglobin 14.9. Platelets 176. Sodium 143. Potassium 4.3. Bicarb 24. BUN 18. Creatinine 0.87. Chest x-ray revealed no acute cardiopulmonary process. CT scan of the chest revealed no acute pulmonary process. FEV1 value 105% of predicted. Patient was reevaluated today on 12/10/2023, patient is doing well, he is scheduled to undergo bypass surgery on Tuesday. Presently he is asymptomatic, no cough no wheezing no shortness of breath no chest pain, practicing with incentive spirometry, ambulating in the hallway, denies any specific complaints.WBC count is 6.2 hemoglobin 15.1 heparin is therapeutic and PTT is 95.9 basic metabolic profile is normal renal profile is normal Reevaluate today on 12/11/2023, patient is still scheduled for CABG tomorrow, doing well asymptomatic doing great with incentive spirometry, has no active pulmonary symptoms, patient is cleared for surgery and considered low operative risk. Family is at bedside with the patient today. Progress note dated December 12, 2023. 68-year-old male, postop day #0, status post two-vessel bypass surgery. The surgery was done off-pump. He had a YANES to LAD bypass, and HIPOLITO to OM1. The patient is now back in the intensive care unit, room 251. Current ventilator settings include volume assist-control rate 16, tidal volume 450, FiO2 50%, and PEEP of 8. On settings of 100%, and a rate of 12, his gases were pO2 greater than 400, pCO2 52, pH is 7.28. His cardiac output is 6.6. His index is 3.1. He is getting propofol at 20 mcg/kg/min, insulin drip at 1 unit an hour, lactated Ringer's at 50 cc an hour, nitroglycerin at 5 mcg/min, and dexmedetomi dine at 0.7 mcg/kg/h. Current labs include a white count 15.8, hemoglobin 12.1, hematocrit 34.6, and platelet count 116,000. Sodium 140, potassium 3.9, chlorides 112, CO2 21, BUN 14, and creatinine 0.73. Glucose is 137. Chest x- ray shows a well-positioned endotracheal tube, a PA catheter, and relatively clear lung almanza. Progress note dated December 13, 2023. 68-year-old male, postop day #1, status post two-vessel bypass surgery. The patient is seen today in room 251. The patient is currently on room air. The patient is getting lactated Ringer's at 50 cc an hour. This was an off-pump t wo-vessel bypass surgery. Clinically, the patient is sore in the surgical area, but other than that, seem to be doing relatively well. He does continue to work on his incentive spirometer. Current laboratory data includes a white count 13.6, hemoglobin 11.9, hematocrit 35.4, and a platelet count of 134,000. Sodium 137, potassium 3.7, chlorides 108, CO2 23, BUN 14, and creatinine 0.73. Glucose is 122. Liver function test were normal. The patient's albumin was 3.8. Urine is negative. Chest x-ray shows some postsurgical changes, and some basilar atelectasis, with a small left-sided pleural effusion. Objective - Vital Signs Vital signs: Vital Signs Temp 99.7 F H 12/13/23 08:00 Pulse 95 12/13/23 10:00 Resp 18 12/13/23 10:00 BP 128/57 12/13/23 06:00 Pulse Ox 93 L 12/13/23 10:00 FiO2 50 04/22/24 16:14 Intake & Output 12/12/23 12/13/23 12/13/23 18:59 06:59 18:59 Intake Total 9532.065 2017.465 393.295 Output Total 1705 1310 290 Balance -130.456 935.465 103.295 Weight 99.8 kg Intake: IV 169 2018 173 Albumin Human 5% 250 ml 1250 In Empty Bag 1 bag @ 250 mls/hr IVPB Q1HR PRN Rx#: [id number] Lactated Ringers 1,000 ml 500 140 @ 20 mls/hr IV .Q24H SAJI Rx#:[id number] NS for cardiac output 120 120 NS for pressure flush 45 99 33 ceFAZolin 2 gm In Sodium 50 Chloride 0.9% 50 ml @ 100 mls/hr IVPB ONCE ONE Rx# :[id number] Intake, IV Titration 1345.544 156.465 50.295 Amount Albumin Human 5% 250 ml 750 In Empty Bag 1 bag @ 250 mls/hr IVPB Q1HR PRN Rx#: [id number] Clevidipine Butyrate 25 4 mg In Empty Bag 1 bag @ 1 MG/HR 2 mls/hr IV .Q24H SAJI Rx#:[id number] Clevidipine Butyrate 25 7.433 17.568 mg In Empty Bag 1 bag @ 1 MG/HR 2 mls/hr IV .Q24H SAJI Rx#:[id number] Dexmedetomidine/0.9% NaCl 25.319 (Pmx) 400 mcg In Empty Bag 1 bag @ Titrate IV . Q0M SAJI Rx#:[id number] Diltiazem 125 mg In 55.584 Sodium Chloride 0.9% 100 ml @ 5 MG/HR 5 mls/hr IV .Q24H SAJI Rx#:[id number] Insulin Regular 100 unit 4 9.913 0.295 In Sodium Chloride 0.9% 100 ml @ Per Protocol IV .Q0M SAJI Rx#:[id number] Lactated Ringers 1,000 ml 300 50 @ 20 mls/hr IV .Q24H SAJI Rx#:[id number] Magnesium Sulfate-D5w Pmx 100 1 gm In Dextrose/Water 1 100ml.bag @ 100 mls/hr IVPB ONCE ONE Rx#: [id number] Nitroglycerin-D5w Pmx 50 1.5 mg In Dextrose/Water 1 250ml.bag @ 5 MCG/MIN 1.5 mls/hr IV .Q24H SAJI Rx#: [id number] Nitroglycerin-D5w Pmx 50 9.0 23.4 mg In Dextrose/Water 1 250ml.bag @ 5 MCG/MIN 1.5 mls/hr IV .Q24H SAJI Rx#: [id number] ceFAZolin 2 gm In Sodium 50 50 Chloride 0.9% 50 ml @ 100 mls/hr IVPB Q8HR SAJI Rx# :[id number] propofoL 1,000 mg In 94.292 Empty Bag 1 bag @ Titrate IV .Q0M SAJI Rx#: [id number] Oral 70 170 Other 60 Output: Chest Tube Drainage 280 [address] 40 250 90 MSCT x1 240 430 50 Gastric Drainage 100 Drainage 0 0 Lt arm 0 0 Urine 1025 630 150 Estimated Blood Loss 300 Other: Voiding Method Indwelling Catheter Indwelling Catheter Indwelling Catheter ABP, PAP, CO, CI - Last Documented Arterial Blood Pressure 128/43 Pulmonary Artery Pressure 12/10 Cardiac Output 6.8 Cardiac Index 3.2 - Exam No acute distress, extubated, currently on room air. No respiratory distress or difficulty. HEENT examination is grossly unremarkable. Neck supple. Full range of motion. No adenopathy thyromegaly or neck vein distention. Cardiovascular examination reveals regular rhythm rate. S1-S2 normal. No S3 or S4. No discernible murmur noted. Heart rate 95 bpm. Lungs reveal clear breath sounds. Breath sounds are equal bilaterally. No adve ntitious lung sounds including wheezes rhonchi or crackles. Saturations are 94 %. Abdomen soft without bowel sounds. No masses. Extremities are intact. No cyanosis clubbing or edema. Skin is without rash or lesion. Neurologic examination is brief but nonfocal. - Labs CBC & Chem 7: 12/13/23 04:00 12/13/23 04:00 Labs: Abnormal Lab Results - Last 24 Hours (Table) 12/11/23 12/12/23 12/12/23 Range/Units 12:04 08:38 09:49 WBC (3.8-10.6) k/uL RBC (4.30-5.90) m/uL Hgb (13.0-17.5) gm/dL Hct (39.0-53.0) % Plt Count (150-450) k/uL Neutrophils # (1.3-7.7) k/uL Lymphocytes # (1.0-4.8) k/uL PT (10.0-12.5) sec INR (<1.2) APTT (22.0-30.0) sec ABG pH 7.34 L (7.35-7.45) ABG pCO2 (35-45) mmHg ABG pO2 274 H 265 H (83-108) mmHg ABG Total CO2 (19-24) mmol/L ABG O2 Saturation 99.0 H 99.0 H (94-97) % ABG Glucose 120 H (75-99) mg/dL ABG Lactic Acid 1.9 H (0.5-1.6) mmol/L Hemoglobin 12.6 L (13.0-17.5) gm/dL Chloride (98-107) mmol/L Carbon Dioxide (22-30) mmol/L Glucose (74-99) mg/dL POC Glucose (mg/dL) (70-110) mg/dL Calcium (8.4-10.2) mg/dL Total Protein (6.3-8.2) g/dL Arterial Blood Glucose 120 H (75-99) mg/dL Crossmatch See Detail 12/12/23 12/12/23 12/12/23 Range/Units 10:27 11:27 12:25 WBC (3.8-10.6) k/uL RBC (4.30-5.90) m/uL Hgb (13.0-17.5) gm/dL Hct (39.0-53.0) % Plt Count (150-450) k/uL Neutrophils # (1.3-7.7) k/uL Lymphocytes # (1.0-4.8) k/uL PT (10.0-12.5) sec INR (<1.2) APTT (22.0-30.0) sec ABG pH (7.35-7.45) ABG pCO2 (35-45) mmHg ABG pO2 223 H 189 H (83-108) mmHg ABG Total CO2 (19-24) mmol/L ABG O2 Saturation 98.8 H 98.8 H (94-97) % ABG Glucose 129 H 122 H (75-99) mg/dL ABG Lactic Acid (0.5-1.6) mmol/L Hemoglobin 12.8 L 11.4 L (13.0-17.5) gm/dL Chloride (98-107) mmol/L Carbon Dioxide (22-30) mmol/L Glucose (74-99) mg/dL POC Glucose (mg/dL) 124 H (70-110) mg/dL Calcium (8.4-10.2) mg/dL Total Protein (6.3-8.2) g/dL Arterial Blood Glucose 129 H 122 H (75-99) mg/dL Crossmatch 12/12/23 12/12/23 12/12/23 Range/Units 12:32 12:32 12:32 WBC 15.8 H (3.8-10.6) k/uL RBC 3.78 L (4.30-5.90) m/uL Hgb 12.1 L D (13.0-17.5) gm/dL Hct 34.6 L (39.0-53.0) % Plt Count 116 L (150-450) k/uL Neutrophils # 13.5 H (1.3-7.7) k/uL Lymphocytes # (1.0-4.8) k/uL PT 12.8 H (10.0-12.5) sec INR 1.2 H (<1.2) APTT 33.2 H (22.0-30.0) sec ABG pH (7.35-7.45) ABG pCO2 (35-45) mmHg ABG pO2 (83-108) mmHg ABG Total CO2 (19-24) mmol/L ABG O2 Saturation (94-97) % ABG Glucose (75-99) mg/dL ABG Lactic Acid (0.5-1.6) mmol/L Hemoglobin (13.0-17.5) gm/dL Chloride 112 H (98-107) mmol/L Carbon Dioxide 21 L (22-30) mmol/L Glucose 120 H (74-99) mg/dL POC Glucose (mg/dL) (70-110) mg/dL Calcium 8.0 L (8.4-10.2) mg/dL Total Protein 5.7 L (6.3-8.2) g/dL Arterial Blood Glucose (75-99) mg/dL Crossmatch 12/12/23 12/12/23 12/12/23 Range/Units 13:03 13:50 15:05 WBC 14.4 H (3.8-10.6) k/uL RBC 3.83 L (4.30-5.90) m/uL Hgb 12.1 L (13.0-17.5) gm/dL Hct 34.9 L (39.0-53.0) % Plt Count 122 L (150-450) k/uL Neutrophils # 12.7 H (1.3-7.7) k/uL Lymphocytes # 0.9 L (1.0-4.8) k/uL PT (10.0-12.5) sec INR (<1.2) APTT (22.0-30.0) sec ABG pH 7.28 L (7.35-7.45) ABG pCO2 52 H (35-45) mmHg ABG pO2 >400 H (83-108) mmHg ABG Total CO2 26 H (19-24) mmol/L ABG O2 Saturation 99.5 H (94-97) % ABG Glucose (75-99) mg/dL ABG Lactic Acid (0.5-1.6) mmol/L Hemoglobin (13.0-17.5) gm/dL Chloride (98-107) mmol/L Carbon Dioxide (22-30) mmol/L Glucose (74-99) mg/dL POC Glucose (mg/dL) 133 H (70-110) mg/dL Calcium (8.4-10.2) mg/dL Total Protein (6.3-8.2) g/dL Arterial Blood Glucose (75-99) mg/dL Crossmatch 12/12/23 12/12/23 12/12/23 Range/Units 15:14 16:03 17:15 WBC (3.8-10.6) k/uL RBC (4.30-5.90) m/uL Hgb (13.0-17.5) gm/dL Hct (39.0-53.0) % Plt Count (150-450) k/uL Neutrophils # (1.3-7.7) k/uL Lymphocytes # (1.0-4.8) k/uL PT (10.0-12.5) sec INR (<1.2) APTT (22.0-30.0) sec ABG pH (7.35-7.45) ABG pCO2 (35-45) mmHg ABG pO2 (83-108) mmHg ABG Total CO2 (19-24) mmol/L ABG O2 Saturation (94-97) % ABG Glucose (75-99) mg/dL ABG Lactic Acid (0.5-1.6) mmol/L Hemoglobin (13.0-17.5) gm/dL Chloride (98-107) mmol/L Carbon Dioxide (22-30) mmol/L Glucose (74-99) mg/dL POC Glucose (mg/dL) 137 H 139 H 138 H (70-110) mg/dL Calcium (8.4-10.2) mg/dL Total Protein (6.3-8.2) g/dL Arterial Blood Glucose (75-99) mg/dL Crossmatch 12/12/23 12/12/23 12/12/23 Range/Units 18:30 18:36 20:11 WBC 14.9 H (3.8-10.6) k/uL RBC 3.75 L (4.30-5.90) m/uL Hgb 12.2 L (13.0-17.5) gm/dL Hct 33.9 L (39.0-53.0) % Plt Count 110 L (150-450) k/uL Neutrophils # 13.6 H (1.3-7.7) k/uL Lymphocytes # 0.6 L (1.0-4.8) k/uL PT (10.0-12.5) sec INR (<1.2) APTT (22.0-30.0) sec ABG pH (7.35-7.45) ABG pCO2 (35-45) mmHg ABG pO2 (83-108) mmHg ABG Total CO2 (19-24) mmol/L ABG O2 Saturation (94-97) % ABG Glucose (75-99) mg/dL ABG Lactic Acid (0.5-1.6) mmol/L Hemoglobin (13.0-17.5) gm/dL Chloride (98-107) mmol/L Carbon Dioxide (22-30) mmol/L Glucose (74-99) mg/dL POC Glucose (mg/dL) 126 H 124 H (70-110) mg/dL Calcium (8.4-10.2) mg/dL Total Protein (6.3-8.2) g/dL Arterial Blood Glucose (75-99) mg/dL Crossmatch 12/12/23 12/12/23 12/12/23 Range/Units 20:59 22:10 23:08 WBC (3.8-10.6) k/uL RBC (4.30-5.90) m/uL Hgb (13.0-17.5) gm/dL Hct (39.0-53.0) % Plt Count (150-450) k/uL Neutrophils # (1.3-7.7) k/uL Lymphocytes # (1.0-4.8) k/uL PT (10.0-12.5) sec INR (<1.2) APTT (22.0-30.0) sec ABG pH (7.35-7.45) ABG pCO2 (35-45) mmHg ABG pO2 (83-108) mmHg ABG Total CO2 (19-24) mmol/L ABG O2 Saturation (94-97) % ABG Glucose (75-99) mg/dL ABG Lactic Acid (0.5-1.6) mmol/L Hemoglobin (13.0-17.5) gm/dL Chloride (98-107) mmol/L Carbon Dioxide (22-30) mmol/L Glucose (74-99) mg/dL POC Glucose (mg/dL) 126 H 119 H 113 H (70-110) mg/dL Calcium (8.4-10.2) mg/dL Total Protein (6.3-8.2) g/dL Arterial Blood Glucose (75-99) mg/dL Crossmatch 12/12/23 12/13/23 12/13/23 Range/Units 23:51 00:55 01:57 WBC (3.8-10.6) k/uL RBC (4.30-5.90) m/uL Hgb (13.0-17.5) gm/dL Hct (39.0-53.0) % Plt Count (150-450) k/uL Neutrophils # (1.3-7.7) k/uL Lymphocytes # (1.0-4.8) k/uL PT (10.0-12.5) sec INR (<1.2) APTT (22.0-30.0) sec ABG pH (7.35-7.45) ABG pCO2 (35-45) mmHg ABG pO2 (83-108) mmHg ABG Total CO2 (19-24) mmol/L ABG O2 Saturation (94-97) % ABG Glucose (75-99) mg/dL ABG Lactic Acid (0.5-1.6) mmol/L Hemoglobin (13.0-17.5) gm/dL Chloride (98-107) mmol/L Carbon Dioxide (22-30) mmol/L Glucose (74-99) mg/dL POC Glucose (mg/dL) 114 H 124 H 121 H (70-110) mg/dL Calcium (8.4-10.2) mg/dL Total Protein (6.3-8.2) g/dL Arterial Blood Glucose (75-99) mg/dL Crossmatch 12/13/23 12/13/23 12/13/23 Range/Units 02:51 04:00 04:00 WBC 13.6 H (3.8-10.6) k/uL RBC 3.89 L (4.30-5.90) m/uL Hgb 11.9 L (13.0-17.5) gm/dL Hct 35.4 L (39.0-53.0) % Plt Count 134 L (150-450) k/uL Neutrophils # 11.5 H (1.3-7.7) k/uL Lymphocytes # (1.0-4.8) k/uL PT (10.0-12.5) sec INR (<1.2) APTT (22.0-30.0) sec ABG pH (7.35-7.45) ABG pCO2 (35-45) mmHg ABG pO2 (83-108) mmHg ABG Total CO2 (19-24) mmol/L ABG O2 Saturation (94-97) % ABG Glucose (75-99) mg/dL ABG Lactic Acid (0.5-1.6) mmol/L Hemoglobin (13.0-17.5) gm/dL Chloride 108 H (98-107) mmol/L Carbon Dioxide (22-30) mmol/L Glucose 122 H (74-99) mg/dL POC Glucose (mg/dL) 121 H (70-110) mg/dL Calcium (8.4-10.2) mg/dL Total Protein 5.8 L (6.3-8.2) g/dL Arterial Blood Glucose (75-99) mg/dL Crossmatch 12/13/23 12/13/23 12/13/23 Range/Units 04:04 05:09 06:05 WBC (3.8-10.6) k/uL RBC (4.30-5.90) m/uL Hgb (13.0-17.5) gm/dL Hct (39.0-53.0) % Plt Count (150-450) k/uL Neutrophils # (1.3-7.7) k/uL Lymphocytes # (1.0-4.8) k/uL PT (10.0-12.5) sec INR (<1.2) APTT (22.0-30.0) sec ABG pH (7.35-7.45) ABG pCO2 (35-45) mmHg ABG pO2 (83-108) mmHg ABG Total CO2 (19-24) mmol/L ABG O2 Saturation (94-97) % ABG Glucose (75-99) mg/dL ABG Lactic Acid (0.5-1.6) mmol/L Hemoglobin (13.0-17.5) gm/dL Chloride (98-107) mmol/L Carbon Dioxide (22-30) mmol/L Glucose (74-99) mg/dL POC Glucose (mg/dL) 126 H 124 H 143 H (70-110) mg/dL Calcium (8.4-10.2) mg/dL Total Protein (6.3-8.2) g/dL Arterial Blood Glucose (75-99) mg/dL Crossmatch 12/13/23 12/13/23 12/13/23 Range/Units 06:58 08:04 10:13 WBC (3.8-10.6) k/uL RBC (4.30-5.90) m/uL Hgb (13.0-17.5) gm/dL Hct (39.0-53.0) % Plt Count (150-450) k/uL Neutrophils # (1.3-7.7) k/uL Lymphocytes # (1.0-4.8) k/uL PT (10.0-12.5) sec INR (<1.2) APTT (22.0-30.0) sec ABG pH (7.35-7.45) ABG pCO2 (35-45) mmHg ABG pO2 (83-108) mmHg ABG Total CO2 (19-24) mmol/L ABG O2 Saturation (94-97) % ABG Glucose (75-99) mg/dL ABG Lactic Acid (0.5-1.6) mmol/L Hemoglobin (13.0-17.5) gm/dL Chloride (98-107) mmol/L Carbon Dioxide (22-30) mmol/L Glucose (74-99) mg/dL POC Glucose (mg/dL) 136 H 135 H 125 H (70-110) mg/dL Calcium (8.4-10.2) mg/dL Total Protein (6.3-8.2) g/dL Arterial Blood Glucose (75-99) mg/dL Crossmatch Assessment and Plan Assessment: Postop day #1,S/P two-vessel off-pump bypass, YANES to LAD, HIPOLITO to OM1. Routine postoperative ventilator management, with extubation on December 12, 2023. History of hypertension. History of hyperlipidemia. History of osteoarthritis. Remote history of tobacco use, quit 1995. Carotid artery stenosis, asymptomatic. Plan: Plan dated December 12, 2023. The patient is seen today in room 251. He is postop day #0, status post two- vessel off-pump bypass. We have already made some ventilator changes, increasing the rate from 12-16, and dropping the FiO2 from 100% down to 50%. The patient continues on nitroglycerin, dexmedetomidine, insulin, lactated Ringer's, and propofol. Cardiac output was 6.6. Index was 3.1. We will continue to follow and make recommendations along the way. Plan dated December 13, 2023. The patient actually did very well yesterday, and had excellent weaning parameters, was awake and alert, with a good cuff leak, and a very low rapid shallow breathing index. For that reason, the patient was extubated. Currently he is on room air. He is getting lactated Ringer's at 50 cc an hour. His chest x-ray shows postsurgical changes. We will continue to follow make recommendations along the way. Labs, x-rays, and all medications are reviewed. Time with Patient: Greater than 30
--- NOTE | 2023-12-13 11:45 | XR ---
EXAMINATION TYPE: XR chest 1V portable DATE OF EXAM: 12/13/2023 Comparison: 12/12/2023 Clinical History: 68-year-old male Post Operative Cardiac Surgery Findings: Right IJ Patterson-Nirav catheter tip now at the proximal aspect of the expected right main pulmonary arter y. Median sternotomy wires are post-CABG clips. Bilateral chest tubes and mediastinal drains. Interva l extubation and removal of NG tube. Heart mildly enlarged. Diffuse interstitial and vascular density persists. There appears to be some d eveloping left basilar opacity. Impression: 1. Mild patchy interstitial pulmonary edema slightly increasing. 2. New small left effusion with adjacent atelectasis and/or consolidation.
[2023-12-13 12:00] VITALS: BMI 31.6
[2023-12-13 12:05] LABS: Glucose,Whole Blood 136 mg/dL (70-110)
--- NOTE | 2023-12-13 12:59 | P.PN ---
Subjective Progress Note Date: 12/13/23 Hospital Course: Patient is a very pleasant 68-year-old male with a past medical history of car otid artery stenosis with right internal carotid artery of 70% stenosis and left internal carotid 50 to 60% stenosed, hyperlipidemia, osteoarthritis, and former nicotine dependence quitting smoking in 1995. He presented to the emergency department with a chief complaint of chest pain, dizziness, and palpitations. Patient reports chest pain has been ongoing x 1 week accompanied by significant dizziness/lightheadedness, palpitations, and shortness of breath. Patient describes pain to chest as a tightening sensation and denies radiation of pain. He reports all of these symptoms are exacerbated with exertion. He denies experiencing any headache, changes in vision or hearing, cough or congestion, nausea or vomiting, diaphoresis, or experiencing any numbness/tingling/weakness/swelling in his extremities. Patient reports his carotid artery stenosis was recently diagnosed and he was supposed to follow-up with vascular surgeon to schedule carotid endarterectomy, his at bedside reports that she called the office today secondary to discovering her 's new complaints of chest pain, dizziness/lightheadedness, palpitations, and exertional dyspnea and was told by the PA at the office to go to the emergency department immediately as Dr. Quiroz is currently out of town and he will need to be evaluated by one of his associates. He underwent evaluation in the emergency department. Vital signs upon arrival show blood pressure 171/94, heart rate 95, respiratory rate 20, temp 98.1 F, and SpO2 of 99% on room air. EKG completed showing normal sinus rhythm 87 bpm with T wave inversion in lateral lead aVL and mild ST depression in lead II. Chest x-ray completed negative for acute cardiopulmonary process. Labs completed and reviewed. CBC unremarkable. Coagulation profile normal findings. BMP revealing mild hyperchloremia with chloride of 108 otherwise normal findings. Blood glucose was 113. Liver profile unremarkable. Magnesium slightly low at 1.7. Troponin negative at less than 0.012. Patient was admitted under our services with consultation to cardiology and vascular surgery. Heart score 5. Troponins trended overnight all negative at less than 0.012 x 3 draws. Cardiology consulted, took patient for cardiac stress test which is reported to be abnormal, with poor exercise tolerance and severe EKG changes. Echocardiogram demonstrates ejection fraction of 50 to 55% with mildly increased septal wall thickness, normal RVSP; stress echo did demonstrate wall motion abnormality in the distribution of the LAD. Left heart cath showed significant 80 to 90% left main disease. Cardiothoracic surgery consulted. Patient underwent CABG x 2. Currently in medical ICU. Subjective: Patient seen and examined at bedside. No acute events overnight. He did have low-grade fevers yesterday night. No bowel movements as of yet. Was able to get out of bed into chair. Chest tubes and Starks catheter in place. Pertinent positives and negatives as discussed above, a complete review of systems was performed and all other systems are negative. Vitals Signs Reviewed. General: [nontoxic], [no distress], [appears at stated age] Derm: [warm], [dry], dressing clean, dry, intact Head: [atraumatic], [normocephalic], [symmetric] Eyes: [EOMI], [no lid lag], [anicteric sclera] Mouth: [no lip lesion], [mucus membranes moist] Cardiovascular: [S1S2 reg], [no murmur] Lungs: [CTA bilateral], [no rhonchi, no rales] , [no accessory muscle use], chest tubes in place Abdominal: [soft], [ nontender to palpation], [no guarding], [no appreciable organomegaly] Ext: [no gross muscle atrophy], [no edema], [no contractures] Neuro: [ CN II-XI grossly intact], [no focal neuro deficits] Psych: [Alert], [oriented], [appropriate affect] Data Reviewed Today: Pertinent Labs: WBC 13.6, hemoglobin 11.9, platelet 134, potassium 3.7, creatinine 0.73, magnesium 1.6, blood sugars range between 1 21-1 36. Imaging: Chest x-ray independently interpreted, shows interstitial opacities, slightly worsened than yesterday Assessment and Plan: CAD status post CABG Reactive leukocytosis, anticipated outcome of surgery Unstable angina Symptomatic carotid artery stenosis Hypertension Dyslipidemia Hyperglycemia - Patient currently on aspirin 325, amlodipine 5, atorvastatin 80, Plavix 75, metoprolol 25 twice daily -Cardiothoracic surgery note reviewed, discontinue IV nitro and Cardizem, PT/OT, discontinue [place], continue chest tubes for another 24 hours, continue Starks catheter for another 24 hours. -ICU note reviewed, continue current management -Pain control with oral Tylenol as needed, oral Oxy as needed, monitor for sedation -Pantoprazole 40 daily -Hyperglycemia likely stress-induced, continue insulin drip, will switch to subcu insulin once oral intake improves -Vascular surgery recommending outpatient follow-up. DVT ppx: Subcu heparin Code status: Full code Anticipated discharge place: Pending clinical course Anticipated discharge time: Pending clinical course Objective - Vital Signs Vital signs: Vital Signs Temp 98.2 F 12/13/23 12:00 Pulse 101 H 12/13/23 12:00 Resp 18 12/13/23 12:00 BP 128/57 12/13/23 06:00 Pulse Ox 92 L 12/13/23 12:00 FiO2 50 12/12/23 16:14 Intake & Output 12/12/23 12/13/23 12/13/23 18:59 06:59 18:59 Intake Total 6168.891 5532.465 685.295 Output Total 1705 1310 415 Balance -130.456 935.465 270.295 Weight 99.8 kg 99.8 kg Intake: IV 169 2018 Albumin Human 5% 250 ml 1250 In Empty Bag 1 bag @ 250 mls/hr IVPB Q1HR PRN Rx#: [id number] Lactated Ringers 1,000 ml 500 180 @ 20 mls/hr IV .Q24H [facility] Rx#:[id number] NS for cardiac output 120 120 NS for pressure flush 45 99 45 ceFAZolin 2 gm In Sodium 50 Chloride 0.9% 50 ml @ 100 mls/hr IVPB ONCE ONE Rx# :[id number] Intake, IV Titration 1345.544 156.465 50.295 Amount Albumin Human 5% 250 ml 750 In Empty Bag 1 bag @ 250 mls/hr IVPB Q1HR PRN Rx#: [id number] Clevidipine Butyrate 25 4 mg In Empty Bag 1 bag @ 1 MG/HR 2 mls/hr IV .Q24H [facility] Rx#:[id number] Clevidipine Butyrate 25 7.433 17.568 mg In Empty Bag 1 bag @ 1 MG/HR 2 mls/hr IV .Q24H [facility] Rx#:[id number] Dexmedetomidine/0.9% NaCl 25.319 (Pmx) 400 mcg In Empty Bag 1 bag @ Titrate IV . Q0M [facility] Rx#:[id number] Diltiazem 125 mg In 55.584 Sodium Chloride 0.9% 100 ml @ 5 MG/HR 5 mls/hr IV .Q24H [facility] Rx#:[id number] Insulin Regular 100 unit 4 9.913 0.295 In Sodium Chloride 0.9% 100 ml @ Per Protocol IV .Q0M [facility] Rx#:[id number] Lactated Ringers 1,000 ml 300 50 @ 20 mls/hr IV .Q24H [facility] Rx#:[id number] Magnesium Sulfate-D5w Pmx 100 1 gm In Dextrose/Water 1 100ml.bag @ 100 mls/hr IVPB ONCE ONE Rx#: [id number] Nitroglycerin-D5w Pmx 50 1.5 mg In Dextrose/Water 1 250ml.bag @ 5 MCG/MIN 1.5 mls/hr IV .Q24H [facility] Rx#: [id number] Nitroglycerin-D5w Pmx 50 9.0 23.4 mg In Dextrose/Water 1 250ml.bag @ 5 MCG/MIN 1.5 mls/hr IV .Q24H [facility] Rx#: [id number] ceFAZolin 2 gm In Sodium 50 50 Chloride 0.9% 50 ml @ 100 mls/hr IVPB Q8HR [facility] Rx# :[id number] propofoL 1,000 mg In 94.292 Empty Bag 1 bag @ Titrate IV .Q0M [facility] Rx#: [id number] Oral 70 410 Other 60 Output: Chest Tube Drainage 280 [address] 40 250 130 MSCT x1 240 430 90 Gastric Drainage 100 Drainage 0 0 Lt arm 0 0 Urine 1025 630 195 Estimated Blood Loss 300 Other: Voiding Method Indwelling Catheter Indwelling Catheter Indwelling Catheter ABP, PAP, CO, CI - Last Documented Arterial Blood Pressure 140/45 Pulmonary Artery Pressure 12/10 Cardiac Output 6.8 Cardiac Index 3.2 - Labs CBC & Chem 7: 12/13/23 04:00 12/13/23 04:00 Labs: Abnormal Lab Results - Last 24 Hours (Table) 12/11/23 12/12/23 12/12/23 Range/Units 12:04 12:32 13:03 WBC (3.8-10.6) k/uL RBC (4.30-5.90) m/uL Hgb (13.0-17.5) gm/dL Hct (39.0-53.0) % Plt Count (150-450) k/uL Neutrophils # (1.3-7.7) k/uL Lymphocytes # (1.0-4.8) k/uL ABG pH 7.28 L (7.35-7.45) ABG pCO2 52 H (35-45) mmHg ABG pO2 >400 H (83-108) mmHg ABG Total CO2 26 H (19-24) mmol/L ABG O2 Saturation 99.5 H (94-97) % Chloride 112 H (98-107) mmol/L Carbon Dioxide 21 L (22-30) mmol/L Glucose 120 H (74-99) mg/dL POC Glucose (mg/dL) (70-110) mg/dL Calcium 8.0 L (8.4-10.2) mg/dL Total Protein 5.7 L (6.3-8.2) g/dL Crossmatch See Detail 12/12/23 12/12/23 12/12/23 Range/Units 13:50 15:05 15:14 WBC 14.4 H (3.8-10.6) k/uL RBC 3.83 L (4.30-5.90) m/uL Hgb 12.1 L (13.0-17.5) gm/dL Hct 34.9 L (39.0-53.0) % Plt Count 122 L (150-450) k/uL Neutrophils # 12.7 H (1.3-7.7) k/uL Lymphocytes # 0.9 L (1.0-4.8) k/uL ABG pH (7.35-7.45) ABG pCO2 (35-45) mmHg ABG pO2 (83-108) mmHg ABG Total CO2 (19-24) mmol/L ABG O2 Saturation (94-97) % Chloride (98-107) mmol/L Carbon Dioxide (22-30) mmol/L Glucose (74-99) mg/dL POC Glucose (mg/dL) 133 H 137 H (70-110) mg/dL Calcium (8.4-10.2) mg/dL Total Protein (6.3-8.2) g/dL Crossmatch 12/12/23 12/12/23 12/12/23 Range/Units 16:03 17:15 18:30 WBC 14.9 H (3.8-10.6) k/uL RBC 3.75 L (4.30-5.90) m/uL Hgb 12.2 L (13.0-17.5) gm/dL Hct 33.9 L (39.0-53.0) % Plt Count 110 L (150-450) k/uL Neutrophils # 13.6 H (1.3-7.7) k/uL Lymphocytes # 0.6 L (1.0-4.8) k/uL ABG pH (7.35-7.45) ABG pCO2 (35-45) mmHg ABG pO2 (83-108) mmHg ABG Total CO2 (19-24) mmol/L ABG O2 Saturation (94-97) % Chloride (98-107) mmol/L Carbon Dioxide (22-30) mmol/L Glucose (74-99) mg/dL POC Glucose (mg/dL) 139 H 138 H (70-110) mg/dL Calcium (8.4-10.2) mg/dL Total Protein (6.3-8.2) g/dL Crossmatch 12/12/23 12/12/23 12/12/23 Range/Units 18:36 20:11 20:59 WBC (3.8-10.6) k/uL RBC (4.30-5.90) m/uL Hgb (13.0-17.5) gm/dL Hct (39.0-53.0) % Plt Count (150-450) k/uL Neutrophils # (1.3-7.7) k/uL Lymphocytes # (1.0-4.8) k/uL ABG pH (7.35-7.45) ABG pCO2 (35-45) mmHg ABG pO2 (83-108) mmHg ABG Total CO2 (19-24) mmol/L ABG O2 Saturation (94-97) % Chloride (98-107) mmol/L Carbon Dioxide (22-30) mmol/L Glucose (74-99) mg/dL POC Glucose (mg/dL) 126 H 124 H 126 H (70-110) mg/dL Calcium (8.4-10.2) mg/dL Total Protein (6.3-8.2) g/dL Crossmatch 12/12/23 12/12/23 12/12/23 Range/Units 22:10 23:08 23:51 WBC (3.8-10.6) k/uL RBC (4.30-5.90) m/uL Hgb (13.0-17.5) gm/dL Hct (39.0-53.0) % Plt Count (150-450) k/uL Neutrophils # (1.3-7.7) k/uL Lymphocytes # (1.0-4.8) k/uL ABG pH (7.35-7.45) ABG pCO2 (35-45) mmHg ABG pO2 (83-108) mmHg ABG Total CO2 (19-24) mmol/L ABG O2 Saturation (94-97) % Chloride (98-107) mmol/L Carbon Dioxide (22-30) mmol/L Glucose (74-99) mg/dL POC Glucose (mg/dL) 119 H 113 H 114 H (70-110) mg/dL Calcium (8.4-10.2) mg/dL Total Protein (6.3-8.2) g/dL Crossmatch 12/13/23 12/13/23 12/13/23 Range/Units 00:55 01:57 02:51 WBC (3.8-10.6) k/uL RBC (4.30-5.90) m/uL Hgb (13.0-17.5) gm/dL Hct (39.0-53.0) % Plt Count (150-450) k/uL Neutrophils # (1.3-7.7) k/uL Lymphocytes # (1.0-4.8) k/uL ABG pH (7.35-7.45) ABG pCO2 (35-45) mmHg ABG pO2 (83-108) mmHg ABG Total CO2 (19-24) mmol/L ABG O2 Saturation (94-97) % Chloride (98-107) mmol/L Carbon Dioxide (22-30) mmol/L Glucose (74-99) mg/dL POC Glucose (mg/dL) 124 H 121 H 121 H (70-110) mg/dL Calcium (8.4-10.2) mg/dL Total Protein (6.3-8.2) g/dL Crossmatch 12/13/23 12/13/23 12/13/23 Range/Units 04:00 04:00 04:04 WBC 13.6 H (3.8-10.6) k/uL RBC 3.89 L (4.30-5.90) m/uL Hgb 11.9 L (13.0-17.5) gm/dL Hct 35.4 L (39.0-53.0) % Plt Count 134 L (150-450) k/uL Neutrophils # 11.5 H (1.3-7.7) k/uL Lymphocytes # (1.0-4.8) k/uL ABG pH (7.35-7.45) ABG pCO2 (35-45) mmHg ABG pO2 (83-108) mmHg ABG Total CO2 (19-24) mmol/L ABG O2 Saturation (94-97) % Chloride 108 H (98-107) mmol/L Carbon Dioxide (22-30) mmol/L Glucose 122 H (74-99) mg/dL POC Glucose (mg/dL) 126 H (70-110) mg/dL Calcium (8.4-10.2) mg/dL Total Protein 5.8 L (6.3-8.2) g/dL Crossmatch 12/13/23 12/13/23 12/13/23 Range/Units 05:09 06:05 06:58 WBC (3.8-10.6) k/uL RBC (4.30-5.90) m/uL Hgb (13.0-17.5) gm/dL Hct (39.0-53.0) % Plt Count (150-450) k/uL Neutrophils # (1.3-7.7) k/uL Lymphocytes # (1.0-4.8) k/uL ABG pH (7.35-7.45) ABG pCO2 (35-45) mmHg ABG pO2 (83-108) mmHg ABG Total CO2 (19-24) mmol/L ABG O2 Saturation (94-97) % Chloride (98-107) mmol/L Carbon Dioxide (22-30) mmol/L Glucose (74-99) mg/dL POC Glucose (mg/dL) 124 H 143 H 136 H (70-110) mg/dL Calcium (8.4-10.2) mg/dL Total Protein (6.3-8.2) g/dL Crossmatch 12/13/23 12/13/23 12/13/23 Range/Units 08:04 10:13 12:04 WBC (3.8-10.6) k/uL RBC (4.30-5.90) m/uL Hgb (13.0-17.5) gm/dL Hct (39.0-53.0) % Plt Count (150-450) k/uL Neutrophils # (1.3-7.7) k/uL Lymphocytes # (1.0-4.8) k/uL ABG pH (7.35-7.45) ABG pCO2 (35-45) mmHg ABG pO2 (83-108) mmHg ABG Total CO2 (19-24) mmol/L ABG O2 Saturation (94-97) % Chloride (98-107) mmol/L Carbon Dioxide (22-30) mmol/L Glucose (74-99) mg/dL POC Glucose (mg/dL) 135 H 125 H 136 H (70-110) mg/dL Calcium (8.4-10.2) mg/dL Total Protein (6.3-8.2) g/dL Crossmatch
[2023-12-13 14:16] LABS: Glucose,Whole Blood 134 mg/dL (70-110)
--- NOTE | 2023-12-13 16:03 | P.PN ---
Subjective Severe coronary artery disease The patient is a pleasant 68-year-old gentleman who was diagnosed recently with severe symptomatic triple-vessel coronary artery disease and he is going to undergo CABG this coming Tuesday. Beside that he does have carotid atherosclerosis and hypertension and dyslipidemia. The echo revealed normal LV systolic function. December 10, 2023 The patient was seen and evaluated this morning. He is asymptomatic. He is on nitro drip and heparin drip. He is on aspirin and high intensity statin and beta-poppy. The examination revealed regular rhythm with clear breathing sounds bilaterally and no lower extremities edema noted. He reports no pain in the chest and no shortness of breath and no dizziness or lightheadedness and no feeling of heart racing or fluttering and no presyncope or syncope December 11, 2023 The patient was seen and evaluated this morning. He is stable. He is asymptomatic and reports no pain in the chest and no shortness of breath on the current dose of heparin as well as IV nitrates. He is hemodynamically stable with a good blood pressure and heart rate. He is also on aspirin and statin. The plan is to proceed with open heart surgery tomorrow morning. Examination revealed regular rhythm with clear breathing sounds bilaterally and no edema was noted in the lower extremities Patient underwent successful 2 vessel CABG yesterday with YANES to LAD, left radial to OM and ligation of left atrial appendage. He remains in sinus rhythm with some sinus tachycardia. He is on IV nitroglycerin and Cardizem drip for blood pressure. His blood pressure more recently has spiked however he is in significant pain from his incision. This was better controlled previously. Assessment Severe triple-vessel coronary artery disease, s/p CABG YANES to LAD, radial to OM Multiple comorbid conditions including hypertension and dyslipidemia and carotid atherosclerosis Plan Continue with aspirin and Plavix. Blood pressure high at times when he is in pain. Continue pain control and increase metoprolol as tolerated. Continue with current supportive care. Follow-up with patient. Objective - Vital Signs Vital signs: Vital Signs Temp 98.2 F 12/13/23 12:00 Pulse 98 12/13/23 15:07 Resp 18 12/13/23 15:00 BP 128/57 12/13/23 06:00 Pulse Ox 93 L 12/13/23 15:00 FiO2 50 12/12/23 16:14 Intake & Output 12/12/23 12/13/23 12/13/23 18:59 06:59 18:59 Intake Total 6443.553 9450.465 857.295 Output Total 1705 1310 545 Balance -130.456 935.465 312.295 Weight 99.8 kg 99.8 kg Intake: IV 169 2018 277 Albumin Human 5% 250 ml 1250 In Empty Bag 1 bag @ 250 mls/hr IVPB Q1HR PRN Rx#: [id number] Lactated Ringers 1,000 ml 500 220 @ 20 mls/hr IV .Q24H [facility] Rx#:[id number] NS for cardiac output 120 120 NS for pressure flush 45 99 57 ceFAZolin 2 gm In Sodium 50 Chloride 0.9% 50 ml @ 100 mls/hr IVPB ONCE ONE Rx# :[id number] Intake, IV Titration 1345.544 156.465 50.295 Amount Albumin Human 5% 250 ml 750 In Empty Bag 1 bag @ 250 mls/hr IVPB Q1HR PRN Rx#: [id number] Clevidipine Butyrate 25 4 mg In Empty Bag 1 bag @ 1 MG/HR 2 mls/hr IV .Q24H [facility] Rx#:[id number] Clevidipine Butyrate 25 7.433 17.568 mg In Empty Bag 1 bag @ 1 MG/HR 2 mls/hr IV .Q24H [facility] Rx#:[id number] Dexmedetomidine/0.9% NaCl 25.319 (Pmx) 400 mcg In Empty Bag 1 bag @ Titrate IV . Q0M [facility] Rx#:[id number] Diltiazem 125 mg In 55.584 Sodium Chloride 0.9% 100 ml @ 5 MG/HR 5 mls/hr IV .Q24H [facility] Rx#:[id number] Insulin Regular 100 unit 4 9.913 0.295 In Sodium Chloride 0.9% 100 ml @ Per Protocol IV .Q0M [facility] Rx#:[id number] Lactated Ringers 1,000 ml 300 50 @ 20 mls/hr IV .Q24H [facility] Rx#:[id number] Magnesium Sulfate-D5w Pmx 100 1 gm In Dextrose/Water 1 100ml.bag @ 100 mls/hr IVPB ONCE ONE Rx#: [id number] Nitroglycerin-D5w Pmx 50 1.5 mg In Dextrose/Water 1 250ml.bag @ 5 MCG/MIN 1.5 mls/hr IV .Q24H [facility] Rx#: [id number] Nitroglycerin-D5w Pmx 50 9.0 23.4 mg In Dextrose/Water 1 250ml.bag @ 5 MCG/MIN 1.5 mls/hr IV .Q24H [facility] Rx#: [id number] ceFAZolin 2 gm In Sodium 50 50 Chloride 0.9% 50 ml @ 100 mls/hr IVPB Q8HR [facility] Rx# :[id number] propofoL 1,000 mg In 94.292 Empty Bag 1 bag @ Titrate IV .Q0M [facility] Rx#: [id number] Oral 70 530 Other 60 Output: Chest Tube Drainage 280 [address] 40 250 130 MSCT x1 240 430 90 Gastric Drainage 100 Drainage 0 0 Lt arm 0 0 Urine 1025 630 325 Estimated Blood Loss 300 Other: Voiding Method Indwelling Catheter Indwelling Catheter Indwelling Catheter ABP, PAP, CO, CI - Last Documented Arterial Blood Pressure 139/56 Pulmonary Artery Pressure 12/10 Cardiac Output 6.8 Cardiac Index 3.2 - Labs CBC & Chem 7: 12/13/23 04:00 12/13/23 04:00 Labs: Abnormal Lab Results - Last 24 Hours (Table) 12/11/23 12/12/23 12/12/23 Range/Units 12:04 16:03 17:15 WBC (3.8-10.6) k/uL RBC (4.30-5.90) m/uL Hgb (13.0-17.5) gm/dL Hct (39.0-53.0) % Plt Count (150-450) k/uL Neutrophils # (1.3-7.7) k/uL Lymphocytes # (1.0-4.8) k/uL Chloride (98-107) mmol/L Glucose (74-99) mg/dL POC Glucose (mg/dL) 139 H 138 H (70-110) mg/dL Total Protein (6.3-8.2) g/dL Crossmatch See Detail 12/12/23 12/12/23 12/12/23 Range/Units 18:30 18:36 20:11 WBC 14.9 H (3.8-10.6) k/uL RBC 3.75 L (4.30-5.90) m/uL Hgb 12.2 L (13.0-17.5) gm/dL Hct 33.9 L (39.0-53.0) % Plt Count 110 L (150-450) k/uL Neutrophils # 13.6 H (1.3-7.7) k/uL Lymphocytes # 0.6 L (1.0-4.8) k/uL Chloride (98-107) mmol/L Glucose (74-99) mg/dL POC Glucose (mg/dL) 126 H 124 H (70-110) mg/dL Total Protein (6.3-8.2) g/dL Crossmatch 12/12/23 12/12/23 12/12/23 Range/Units 20:59 22:10 23:08 WBC (3.8-10.6) k/uL RBC (4.30-5.90) m/uL Hgb (13.0-17.5) gm/dL Hct (39.0-53.0) % Plt Count (150-450) k/uL Neutrophils # (1.3-7.7) k/uL Lymphocytes # (1.0-4.8) k/uL Chloride (98-107) mmol/L Glucose (74-99) mg/dL POC Glucose (mg/dL) 126 H 119 H 113 H (70-110) mg/dL Total Protein (6.3-8.2) g/dL Crossmatch 12/12/23 12/13/23 12/13/23 Range/Units 23:51 00:55 01:57 WBC (3.8-10.6) k/uL RBC (4.30-5.90) m/uL Hgb (13.0-17.5) gm/dL Hct (39.0-53.0) % Plt Count (150-450) k/uL Neutrophils # (1.3-7.7) k/uL Lymphocytes # (1.0-4.8) k/uL Chloride (98-107) mmol/L Glucose (74-99) mg/dL POC Glucose (mg/dL) 114 H 124 H 121 H (70-110) mg/dL Total Protein (6.3-8.2) g/dL Crossmatch 12/13/23 12/13/23 12/13/23 Range/Units 02:51 04:00 04:00 WBC 13.6 H (3.8-10.6) k/uL RBC 3.89 L (4.30-5.90) m/uL Hgb 11.9 L (13.0-17.5) gm/dL Hct 35.4 L (39.0-53.0) % Plt Count 134 L (150-450) k/uL Neutrophils # 11.5 H (1.3-7.7) k/uL Lymphocytes # (1.0-4.8) k/uL Chloride 108 H (98-107) mmol/L Glucose 122 H (74-99) mg/dL POC Glucose (mg/dL) 121 H (70-110) mg/dL Total Protein 5.8 L (6.3-8.2) g/dL Crossmatch 12/13/23 12/13/23 12/13/23 Range/Units 04:04 05:09 06:05 WBC (3.8-10.6) k/uL RBC (4.30-5.90) m/uL Hgb (13.0-17.5) gm/dL Hct (39.0-53.0) % Plt Count (150-450) k/uL Neutrophils # (1.3-7.7) k/uL Lymphocytes # (1.0-4.8) k/uL Chloride (98-107) mmol/L Glucose (74-99) mg/dL POC Glucose (mg/dL) 126 H 124 H 143 H (70-110) mg/dL Total Protein (6.3-8.2) g/dL Crossmatch 12/13/23 12/13/23 12/13/23 Range/Units 06:58 08:04 10:13 WBC (3.8-10.6) k/uL RBC (4.30-5.90) m/uL Hgb (13.0-17.5) gm/dL Hct (39.0-53.0) % Plt Count (150-450) k/uL Neutrophils # (1.3-7.7) k/uL Lymphocytes # (1.0-4.8) k/uL Chloride (98-107) mmol/L Glucose (74-99) mg/dL POC Glucose (mg/dL) 136 H 135 H 125 H (70-110) mg/dL Total Protein (6.3-8.2) g/dL Crossmatch 12/13/23 12/13/23 Range/Units 12:04 14:14 WBC (3.8-10.6) k/uL RBC (4.30-5.90) m/uL Hgb (13.0-17.5) gm/dL Hct (39.0-53.0) % Plt Count (150-450) k/uL Neutrophils # (1.3-7.7) k/uL Lymphocytes # (1.0-4.8) k/uL Chloride (98-107) mmol/L Glucose (74-99) mg/dL POC Glucose (mg/dL) 136 H 134 H (70-110) mg/dL Total Protein (6.3-8.2) g/dL Crossmatch
[2023-12-13 16:22] LABS: Glucose,Whole Blood 121 mg/dL (70-110)
[2023-12-13] MEDS: KETOROLAC 15 MG/ML 1 ML VIAL IVP SCH (16:26)
[2023-12-13 18:06] LABS: Glucose,Whole Blood 136 mg/dL (70-110)
[2023-12-13] MEDS: ACETAMINOPHEN TAB 325 MG TAB PO PRN (18:20)
[2023-12-13 20:02] LABS: Glucose,Whole Blood 144 mg/dL (70-110)
[2023-12-13] MEDS: SENNOSIDES-DOCUSATE SODIUM 1 EACH TAB PO SCH (20:13)
[2023-12-13 21:59] LABS: Glucose,Whole Blood 124 mg/dL (70-110)
[2023-12-14 00:17] LABS: Glucose,Whole Blood 113 mg/dL (70-110)
[2023-12-14 02:15] LABS: Glucose,Whole Blood 115 mg/dL (70-110)
[2023-12-14 03:59] LABS: Glucose,Whole Blood 129 mg/dL (70-110)
[2023-12-14 04:11] LABS: Ionized Calcium 4.8 mg/dL (4.5-5.3)
[2023-12-14 04:20] LABS: ALT 18 U/L (4-49); AST 43 U/L (17-59); African American GFR (CKD) >90 (>60 ml/min/1.73 sqM); Albumin 3.6 g/dL (3.5-5.0); Alkaline Phosphatase 38 U/L (38-126); Anion Gap 5 mmol/L; Blood Urea Nitrogen 14 mg/dL (9-20); Calcium 8.7 mg/dL (8.4-10.2); Carbon Dioxide 24 mmol/L (22-30); Chloride 103 mmol/L (98-107); Glucose 115 mg/dL (74-99); Magnesium 1.9 mg/dL (1.6-2.3); Non-African American GFR(CKD) >90 (>60 ml/min/1.73 sqM); Potassium 3.8 mmol/L (3.5-5.1); Sodium 132 mmol/L (137-145); Total Bilirubin 1.3 mg/dL (0.2-1.3); Total Protein 5.6 g/dL (6.3-8.2)
[2023-12-14 04:39] LABS: Basophils % (A) 0 %; Eosinophils # (A) 0.2 k/uL (0-0.7); Eosinophils % (A) 2 %; HCT 30.6 % (39.0-53.0); HGB 10.6 gm/dL (13.0-17.5); Lymphocytes # (A) 1.3 k/uL (1.0-4.8); Lymphocytes % (A) 11 %; MCH 31.6 pg (25.0-35.0); MCHC 34.7 g/dL (31.0-37.0); MCV 90.9 fL (80.0-100.0); Mean Platelet Volume 9.8; Monocytes # (A) 0.7 k/uL (0-1.0); Monocytes % (A) 6 %; Neutrophils # (A) 9.5 k/uL (1.3-7.7); Neutrophils % (A) 80 %; RBC 3.37 m/uL (4.30-5.90); RDW 13.3 % (11.5-15.5)
[2023-12-14] MEDS: MAGNESIUM SULFATE-D5W PMX 1 GM in DEXTROSE/WATER 1 100ML.BAG IVPB ONE (04:58)
[2023-12-14] MEDS: POTASSIUM CHLORIDE ER 20 MEQ TAB.ER PO SCH (04:58)
[2023-12-14] MEDS: PANTOPRAZOLE 40 MG TABLET PO SCH (06:19)
[2023-12-14 06:25] LABS: Glucose,Whole Blood 131 mg/dL (70-110)
[2023-12-14] MEDS: MAGNESIUM HYDROXIDE 2,400 MG/30 ML CUP PO PRN (06:59)
[2023-12-14 07:03] LABS: Anisocytosis (M) Present
[2023-12-14 07:04] LABS: Platelet Count 93 k/uL (150-450)
--- NOTE | 2023-12-14 08:01 | P.PN ---
Subjective Progress Note Date: 12/14/23 Principal diagnosis: Triple-vessel coronary artery disease, left main disease, unstable angina. Known history of carotid artery stenosis being followed outpatient by Dr. Quiroz, hypertension, hyperlipidemia, osteoarthritis, previous tobacco dependence POD#2 off pump coronary artery bypass grafting x 2, left internal thoracic artery (in-situ) to left anterior descending coronary artery, left radial artery from aorta to obtuse marginal artery, left atrial appendage ligation using #35mm AtriClip, endoscopic left radial artery harvest, trans-esophageal echo Postoperative acute blood loss anemia and thrombocytopenia, expected given hemodilution The patient was seen and examined this morning sitting up in a recliner in the intensive care unit in no acute distress. States post surgical pain is controlled on current medication regimen, denies shortness of breath. Remains in sinus rhythm to sinus tach, blood pressure stable and occasionally high. Currently on room air with oxygen saturations in the mid 90s. CXR, labs reviews reviewed. Right internal jugular cordis, right radial arterial line, mediastinal/right/left chest tubes remain. Patient has been ambulatory in the [place] with assistance, tolerated well. No other new concerns. Objective - Vital Signs Vital signs: Vital Signs Temp 98.9 F 12/14/23 04:00 Pulse 99 12/14/23 07:00 Resp 17 12/14/23 07:00 BP 155/71 12/14/23 05:00 Pulse Ox 95 12/14/23 07:00 FiO2 50 12/12/23 16:14 Intake & Output 12/13/23 12/14/23 12/14/23 18:59 06:59 18:59 Intake Total 1081.295 533.002 226 Output Total 1050 840 55 Balance 31.295 -306.998 171 Weight 99.8 kg 101.9 kg Intake: IV 381 312 26 Lactated Ringers 1,000 ml 300 240 20 @ 20 mls/hr IV .Q24H SAJI Rx#:[id number] NS for pressure flush 81 72 6 Intake, IV Titration 50.295 1.002 Amount Insulin Regular 100 unit 0.295 1.002 In Sodium Chloride 0.9% 100 ml @ Per Protocol IV .Q0M SAJI Rx#:[id number] ceFAZolin 2 gm In Sodium 50 Chloride 0.9% 50 ml @ 100 mls/hr IVPB Q8HR SAJI Rx# :[id number] Oral 650 220 200 Output: Chest Tube Drainage 400 [address] 220 190 20 MSCT x1 180 180 Drainage 0 Lt arm 0 Urine 650 470 35 Other: Voiding Method Indwelling Catheter Indwelling Catheter ABP, PAP, CO, CI - Last Documented Arterial Blood Pressure 115/40 Pulmonary Artery Pressure 12/10 Cardiac Output 6.8 Cardiac Index 3.2 - Exam CONSTITUTIONAL: Appears comfortable, cooperative, no acute distress RESPIRATORY: Lungs sounds diminished bilaterally. Respirations even, nonlabored. Currently on room air with oxygen saturation 96%. Able to achieve 1250 mL on incentive spirometry. Strong cough. CARDIOVASCULAR: S1, S2 present. Regular rate and rhythm, sinus rhythm to sinus tach on telemetry. Sternum stable. Palpable peripheral pulses bilaterally. No edema present. No calf pain or tenderness noted. Heart hugger in place with patient demonstrating appropriate use. Antiembolism stockings, SCDs present. GASTROINTESTINAL: Abdomen soft, nontender, nondistended. Active bowel sounds present 4 quadrants. Tolerating clear liquids. Denies flatus GENITOURINARY: Starks present draining clear, yellow urine. Output overnight 30-75 mL per hour, 1120 mL in the last 24 hours INTEGUMENTARY: Skin is warm and dry with evidence of good perfusion. Anterior chest incision well approximated and covered with dry intact dressing. Left radial artery harvest site well approximated without redness, MAILE drain present with no drainage. NEUROLOGIC: Cranial nerves II through XII intact MUSKULOSKELETAL: Able to move all extremities, strength equal bilaterally, gait normal PSYCHIATRIC: Alert and oriented to person place and time, appropriate affect, intact judgment and insight INVASIVE LINES AND TUBES: Mediastinal/left/right pleural chest tubes present and connected to wall suction, no air leaks present. Mediastinal tube with 120 mL serosanguineous drainage overnight, 350 mL in the last 24 hours. Left/right pleural chest tubes with 170 mL serosanguineous drainage overnight, 350 mL in the last 24 hours. Ventricular epicardial pacemaker wires present, connected to generator, backup rate 50 bpm. Right internal jugular cordis, right radial arterial line present. Last CVP 3. - Allied health notes Allied health notes reviewed: nursing - Labs CBC & Chem 7: 12/14/23 03:59 12/14/23 03:59 Labs: Abnormal Lab Results - Last 24 Hours (Table) 12/13/23 12/13/23 12/13/23 Range/Units 08:04 10:13 12:04 WBC (3.8-10.6) k/uL RBC (4.30-5.90) m/uL Hgb (13.0-17.5) gm/dL Hct (39.0-53.0) % Plt Count (150-450) k/uL Neutrophils # (1.3-7.7) k/uL Sodium (137-145) mmol/L Glucose (74-99) mg/dL POC Glucose (mg/dL) 135 H 125 H 136 H (70-110) mg/dL Total Protein (6.3-8.2) g/dL 12/13/23 12/13/23 12/13/23 Range/Units 14:14 16:20 18:05 WBC (3.8-10.6) k/uL RBC (4.30-5.90) m/uL Hgb (13.0-17.5) gm/dL Hct (39.0-53.0) % Plt Count (150-450) k/uL Neutrophils # (1.3-7.7) k/uL Sodium (137-145) mmol/L Glucose (74-99) mg/dL POC Glucose (mg/dL) 134 H 121 H 136 H (70-110) mg/dL Total Protein (6.3-8.2) g/dL 12/13/23 12/13/23 12/14/23 Range/Units 20:01 21:58 00:16 WBC (3.8-10.6) k/uL RBC (4.30-5.90) m/uL Hgb (13.0-17.5) gm/dL Hct (39.0-53.0) % Plt Count (150-450) k/uL Neutrophils # (1.3-7.7) k/uL Sodium (137-145) mmol/L Glucose (74-99) mg/dL POC Glucose (mg/dL) 144 H 124 H 113 H (70-110) mg/dL Total Protein (6.3-8.2) g/dL 12/14/23 12/14/23 12/14/23 Range/Units 02:13 03:58 03:59 WBC 12.0 H (3.8-10.6) k/uL RBC 3.37 L (4.30-5.90) m/uL Hgb 10.6 L (13.0-17.5) gm/dL Hct 30.6 L (39.0-53.0) % Plt Count 93 L (150-450) k/uL Neutrophils # 9.5 H (1.3-7.7) k/uL Sodium (137-145) mmol/L Glucose (74-99) mg/dL POC Glucose (mg/dL) 115 H 129 H (70-110) mg/dL Total Protein (6.3-8.2) g/dL 12/14/23 12/14/23 Range/Units 03:59 06:23 WBC (3.8-10.6) k/uL RBC (4.30-5.90) m/uL Hgb (13.0-17.5) gm/dL Hct (39.0-53.0) % Plt Count (150-450) k/uL Neutrophils # (1.3-7.7) k/uL Sodium 132 L (137-145) mmol/L Glucose 115 H (74-99) mg/dL POC Glucose (mg/dL) 131 H (70-110) mg/dL Total Protein 5.6 L (6.3-8.2) g/dL - Imaging and Cardiology Chest x-ray: image reviewed Assessment and Plan Assessment: Triple-vessel coronary artery disease, left main disease, unstable angina, status post 2 vessel off pump CABG Known history of carotid artery stenosis being followed outpatient by Dr. Florentin hicks, remains asymptomatic Hypertension Hyperlipidemia, treated, cholesterol 164, LDL 85 Osteoarthritis Previous tobacco dependence, preoperative FEV1 105% of predicted Postoperative acute blood loss anemia and thrombocytopenia, expected Plan: Continue to maximize medical therapy with aspirin, Plavix, statin, beta-poppy. Will increase beta-poppy therapy as tolerated, increased to 50 mg twice daily today Continue oral calcium channel poppy for radial artery spasm prophylaxis Encourage incentive spirometry use 10 times every hour while awake. Bronchodilators per pulmonology Increase activity, ambulate as tolerated. PT/OT/cardiac rehab consulted Will monitor daily labs and x-rays. Electrolyte replacement per protocol GI/DVT prophylaxis Pain control per current medication regimen Insulin management per internal medicine, patient is not diabetic, hemoglobin A1c 5.4% Discontinue Cordis, arterial line Will discontinue chest tubes, ground epicardial wires Discontinue Starks, may bladder scan and straight cath for greater than 300 mL residual Continue to record strict accurate intake and output Daily weights More recommendations to follow based on patient's progress
[2023-12-14 08:11] LABS: Glucose,Whole Blood 131 mg/dL (70-110)
[2023-12-14] MEDS: METOCLOPRAMIDE 5 MG/ML 2 ML VIAL IVP PRN (08:35)
[2023-12-14] MEDS: METOPROLOL TARTRATE 50 MG TAB PO SCH (08:35)
--- NOTE | 2023-12-14 10:54 | XR ---
EXAMINATION TYPE: XR chest 1V portable DATE OF EXAM: 12/14/2023 Comparison: 12/13/2023 Clinical History: 68-year-old male Post Operative Cardiac Surgery Findings: Median sternotomy wires are present at post-CABG clips. Bilateral chest tubes and mediastinal drains remain. Right IJ Hoffmeister-Nirav catheter removed. The right IJ sheath remains in place. Heart remains unen larged. Interstitial vascular density is similar. Patchy left basilar opacity similar to slightly imp roved. Impression: Ongoing pulmonary vascular congestion. Similar to slightly improved patchy left basilar/retrocardiac atelectasis.
--- NOTE | 2023-12-14 11:23 | P.PN ---
Subjective Progress Note Date: 12/14/23 Principal diagnosis: Coronary disease. This is a very pleasant 68-year-old male patient with a known history of hypertension, hyperlipidemia, osteoarthritis, carotid artery stenosis, former smoker of 20 years however quit back in 1995. He had not been on any inhalers or pulmonary medications in the outpatient setting. He had been quite active riding his bike frequently up to 10 miles at a time. He had presented to the emergency room on 12/06/2023 with complaints of chest pain and shortness of breath. Catheterization on 12/07/2023 revealed one-vessel coronary artery disea se with severe left main stenosis up to 80 to 90%. The plan is for coronary artery bypass grafting on 12/12/2023. He is currently sitting up in a chair. Awake and alert in no acute distress. Maintaining good O2 saturations in the 90s on room air. He has a heparin drip as well as a nitroglycerin drip at 2.5 mcg/min. He denies any chest pain. No worsening shortness of breath, cough or congestion. He is working well with the incentive spirometer. Count 7.2. Hemoglobin 14.9. Platelets 176. Sodium 143. Potassium 4.3. Bicarb 24. BUN 18. Creatinine 0.87. Chest x-ray revealed no acute cardiopulmonary process. CT scan of the chest revealed no acute pulmonary process. FEV1 value 105% of predicted. Patient was reevaluated today on 12/10/2023, patient is doing well, he is scheduled to undergo bypass surgery on Tuesday. Presently he is asymptomatic, no cough no wheezing no shortness of breath no chest pain, practicing with incentive spirometry, ambulating in the hallway, denies any specific complaints.WBC count is 6.2 hemoglobin 15.1 heparin is therapeutic and PTT is 95.9 basic metabolic profile is normal renal profile is normal Reevaluate today on 12/11/2023, patient is still scheduled for CABG tomorrow, doing well asymptomatic doing great with incentive spirometry, has no active pulmonary symptoms, patient is cleared for surgery and considered low operative risk. Family is at bedside with the patient today. Progress note dated December 12, 2023. 68-year-old male, postop day #0, status post two-vessel bypass surgery. The surgery was done off-pump. He had a YANES to LAD bypass, and HIPOLITO to OM1. The patient is now back in the intensive care unit, room 251. Current ventilator settings include volume assist-control rate 16, tidal volume 450, FiO2 50%, and PEEP of 8. On settings of 100%, and a rate of 12, his gases were pO2 greater than 400, pCO2 52, pH is 7.28. His cardiac output is 6.6. His index is 3.1. He is getting propofol at 20 mcg/kg/min, insulin drip at 1 unit an hour, lactated Ringer's at 50 cc an hour, nitroglycerin at 5 mcg/min, and dexmedetomi dine at 0.7 mcg/kg/h. Current labs include a white count 15.8, hemoglobin 12.1, hematocrit 34.6, and platelet count 116,000. Sodium 140, potassium 3.9, chlorides 112, CO2 21, BUN 14, and creatinine 0.73. Glucose is 137. Chest x- ray shows a well-positioned endotracheal tube, a PA catheter, and relatively clear lung almanza. Progress note dated December 13, 2023. 68-year-old male, postop day #1, status post two-vessel bypass surgery. The patient is seen today in room 251. The patient is currently on room air. The patient is getting lactated Ringer's at 50 cc an hour. This was an off-pump t wo-vessel bypass surgery. Clinically, the patient is sore in the surgical area, but other than that, seem to be doing relatively well. He does continue to work on his incentive spirometer. Current laboratory data includes a white count 13.6, hemoglobin 11.9, hematocrit 35.4, and a platelet count of 134,000. Sodium 137, potassium 3.7, chlorides 108, CO2 23, BUN 14, and creatinine 0.73. Glucose is 122. Liver function test were normal. The patient's albumin was 3.8. Urine is negative. Chest x-ray shows some postsurgical changes, and some basilar atelectasis, with a small left-sided pleural effusion. Progress note dated December 14, 2023. 68-year-old male postop day #2, status post two-vessel bypass surgery. The patient is seen today in room 251. He remains on room air. He is getting saline at 20 cc an hour. This morning, he has some nausea, and he feels queasy, but other than that, he is doing pretty well. Current labs are good white count 12, hemoglobin 10.6, hematocrit 38.6 and platelet count 93,000. Sodium 132, potassium 3.8, chlorides 103, CO2 24, anion gap normal, BUN 14, and creatinine 0.67. Glucose is 131. Albumin 3.6. Chest x-ray shows some postsurgical change s, and some mild fluid overload. Objective - Vital Signs Vital signs: Vital Signs Temp 98 F 12/14/23 08:00 Pulse 93 12/14/23 11:00 Resp 18 12/14/23 11:00 BP 145/70 12/14/23 11:00 Pulse Ox 95 12/14/23 11:00 FiO2 50 12/12/23 16:14 Intake & Output 12/13/23 12/14/23 12/14/23 18:59 06:59 18:59 Intake Total 1081.295 533.002 291 Output Total 1050 840 135 Balance 31.295 -306.998 156 Weight 99.8 kg 101.9 kg Intake: IV 381 312 91 Lactated Ringers 1,000 ml 300 240 70 @ 20 mls/hr IV .Q24H SAJI Rx#:[id number] NS for pressure flush 81 72 21 Intake, IV Titration 50.295 1.002 Amount Insulin Regular 100 unit 0.295 1.002 In Sodium Chloride 0.9% 100 ml @ Per Protocol IV .Q0M SAJI Rx#:[id number] ceFAZolin 2 gm In Sodium 50 Chloride 0.9% 50 ml @ 100 mls/hr IVPB Q8HR SAJI Rx# :[id number] Oral 650 220 200 Output: Chest Tube Drainage 400 [address] 220 190 90 MSCT x1 180 180 10 Drainage 0 0 Lt arm 0 0 Urine 650 470 35 Other: Voiding Method Indwelling Catheter Indwelling Catheter Indwelling Catheter ABP, PAP, CO, CI - Last Documented Arterial Blood Pressure 129/64 Pulmonary Artery Pressure 12/10 Cardiac Output 6.8 Cardiac Index 3.2 - Exam No acute distress, extubated, currently on room air. No respiratory distress or difficulty. HEENT examination is grossly unremarkable. Neck supple. Full range of motion. No adenopathy thyromegaly or neck vein distention. Cardiovascular examination reveals regular rhythm rate. S1-S2 normal. No S3 or S4. No discernible murmur noted. Heart rate 93 bpm. Lungs reveal clear breath sounds. Breath sounds are equal bilaterally. No adventitious lung sounds including wheezes rhonchi or crackles. Saturations are 95 %. Abdomen soft without bowel sounds. No masses. Extremities are intact. No cyanosis clubbing or edema. Skin is without rash or lesion. Neurologic examination is brief but nonfocal. - Labs CBC & Chem 7: 12/14/23 03:59 12/14/23 03:59 Labs: Abnormal Lab Results - Last 24 Hours (Table) 12/13/23 12/13/23 12/13/23 Range/Units 12:04 14:14 16:20 WBC (3.8-10.6) k/uL RBC (4.30-5.90) m/uL Hgb (13.0-17.5) gm/dL Hct (39.0-53.0) % Plt Count (150-450) k/uL Neutrophils # (1.3-7.7) k/uL Sodium (137-145) mmol/L Glucose (74-99) mg/dL POC Glucose (mg/dL) 136 H 134 H 121 H (70-110) mg/dL Total Protein (6.3-8.2) g/dL 12/13/23 12/13/23 12/13/23 Range/Units 18:05 20:01 21:58 WBC (3.8-10.6) k/uL RBC (4.30-5.90) m/uL Hgb (13.0-17.5) gm/dL Hct (39.0-53.0) % Plt Count (150-450) k/uL Neutrophils # (1.3-7.7) k/uL Sodium (137-145) mmol/L Glucose (74-99) mg/dL POC Glucose (mg/dL) 136 H 144 H 124 H (70-110) mg/dL Total Protein (6.3-8.2) g/dL 12/14/23 12/14/23 12/14/23 Range/Units 00:16 02:13 03:58 WBC (3.8-10.6) k/uL RBC (4.30-5.90) m/uL Hgb (13.0-17.5) gm/dL Hct (39.0-53.0) % Plt Count (150-450) k/uL Neutrophils # (1.3-7.7) k/uL Sodium (137-145) mmol/L Glucose (74-99) mg/dL POC Glucose (mg/dL) 113 H 115 H 129 H (70-110) mg/dL Total Protein (6.3-8.2) g/dL 12/14/23 12/14/23 12/14/23 Range/Units 03:59 03:59 06:23 WBC 12.0 H (3.8-10.6) k/uL RBC 3.37 L (4.30-5.90) m/uL Hgb 10.6 L (13.0-17.5) gm/dL Hct 30.6 L (39.0-53.0) % Plt Count 93 L (150-450) k/uL Neutrophils # 9.5 H (1.3-7.7) k/uL Sodium 132 L (137-145) mmol/L Glucose 115 H (74-99) mg/dL POC Glucose (mg/dL) 131 H (70-110) mg/dL Total Protein 5.6 L (6.3-8.2) g/dL 12/14/23 Range/Units 08:09 WBC (3.8-10.6) k/uL RBC (4.30-5.90) m/uL Hgb (13.0-17.5) gm/dL Hct (39.0-53.0) % Plt Count (150-450) k/uL Neutrophils # (1.3-7.7) k/uL Sodium (137-145) mmol/L Glucose (74-99) mg/dL POC Glucose (mg/dL) 131 H (70-110) mg/dL Total Protein (6.3-8.2) g/dL Assessment and Plan Assessment: Postop day #2, S/P two-vessel off-pump bypass, YANES to LAD, HIPOLITO to OM1. Routine postoperative ventilator management, with extubation on December 12, 2023. History of hypertension. History of hyperlipidemia. History of osteoarthritis. Remote history of tobacco use, quit 1995. Carotid artery stenosis, asymptomatic. Plan: Plan dated December 12, 2023. The patient is seen today in room 251. He is postop day #0, status post two- vessel off-pump bypass. We have already made some ventilator changes, i ncreasing the rate from 12-16, and dropping the FiO2 from 100% down to 50%. The patient continues on nitroglycerin, dexmedetomidine, insulin, lactated Ringer's, and propofol. Cardiac output was 6.6. Index was 3.1. We will continue to follow and make recommendations along the way. Plan dated December 13, 2023. The patient actually did very well yesterday, and had excellent weaning parameters, was awake and alert, with a good cuff leak, and a very low rapid shallow breathing index. For that reason, the patient was extubated. Currently he is on room air. He is getting lactated Ringer's at 50 cc an hour. His chest x-ray shows postsurgical changes. We will continue to follow make recommen dations along the way. Labs, x-rays, and all medications are reviewed. Plan dated December 14, 2023. The patient is currently on room air. He is seen in room 251. He is getting saline at 20 cc an hour. The patient is a bit nauseated, and feeling a bit queasy. Denies any chest pain or chest discomfort. No shortness of breath, cough, wheezing, chest tightness, or phlegm production. Labs, x-rays, medications are reviewed. We encourage him to continue to use the incentive spirometer. Additional recommendations and suggestions are forthcoming. Time with Patient: Less than 30
[2023-12-14] MEDS: INSULIN ASPART (NovoLOG) 100 UNIT/ML VIAL SQ SCH (12:44)
--- NOTE | 2023-12-14 14:59 | P.PN ---
Subjective Progress Note Date: 12/14/23 Hospital Course: Patient is a very pleasant 68-year-old male with a past medical history of car otid artery stenosis with right internal carotid artery of 70% stenosis and left internal carotid 50 to 60% stenosed, hyperlipidemia, osteoarthritis, and former nicotine dependence quitting smoking in 1995. He presented to the emergency department with a chief complaint of chest pain, dizziness, and palpitations. Patient reports chest pain has been ongoing x 1 week accompanied by significant dizziness/lightheadedness, palpitations, and shortness of breath. Patient describes pain to chest as a tightening sensation and denies radiation of pain. He reports all of these symptoms are exacerbated with exertion. He denies experiencing any headache, changes in vision or hearing, cough or congestion, nausea or vomiting, diaphoresis, or experiencing any numbness/tingling/weakness/swelling in his extremities. Patient reports his carotid artery stenosis was recently diagnosed and he was supposed to follow-up with vascular surgeon to schedule carotid endarterectomy, his at bedside reports that she called the office today secondary to discovering her 's new complaints of chest pain, dizziness/lightheadedness, palpitations, and exertional dyspnea and was told by the PA at the office to go to the emergency department immediately as Dr. Quiroz is currently out of town and he will need to be evaluated by one of his associates. He underwent evaluation in the emergency department. Vital signs upon arrival show blood pressure 171/94, heart rate 95, respiratory rate 20, temp 98.1 F, and SpO2 of 99% on room air. EKG completed showing normal sinus rhythm 87 bpm with T wave inversion in lateral lead aVL and mild ST depression in lead II. Chest x-ray completed negative for acute cardiopulmonary process. Labs completed and reviewed. CBC unremarkable. Coagulation profile normal findings. BMP revealing mild hyperchloremia with chloride of 108 otherwise normal findings. Blood glucose was 113. Liver profile unremarkable. Magnesium slightly low at 1.7. Troponin negative at less than 0.012. Patient was admitted under our services with consultation to cardiology and vascular surgery. Heart score 5. Troponins trended overnight all negative at less than 0.012 x 3 draws. Cardiology consulted, took patient for cardiac stress test which is reported to be abnormal, with poor exercise tolerance and severe EKG changes. Echocardiogram demonstrates ejection fraction of 50 to 55% with mildly increased septal wall thickness, normal RVSP; stress echo did demonstrate wall motion abnormality in the distribution of the LAD. Left heart cath showed significant 80 to 90% left main disease. Cardiothoracic surgery consulted. Patient underwent CABG x 2. Currently in medical ICU. Subjective: Patient seen and examined at bedside. No acute events overnight. Chest tubes currently in place. Starks catheter is has not taken out. Pertinent positives and negatives as discussed above, a complete review of systems was performed and all other systems are negative. Vitals Signs Reviewed. General: Nontoxic, no distress, appears at stated age Derm: Warm, dry, dressing clean, dry, intact Head: Atraumatic, normocephalic, symmetric Eyes: EOMI, no lid lag, anicteric sclera Mouth: No lip lesion, mucus membranes moist Cardiovascular: S1S2 reg, no murmur Lungs: CTA bilateral, no rhonchi, no rales, no accessory muscle use, chest tubes in place Abdominal: Soft, nontender to palpation, no guarding, no appreciable organomegaly Ext: No gross muscle atrophy, no edema, no contractures Neuro: CN II-XI grossly intact, no focal neuro deficits Psych: Alert, oriented, appropriate affect Data Reviewed Today: Pertinent Labs: WBC 12, hemoglobin 10.6, platelet 93, sodium 132, creatinine 0.67, blood sugars range between 1 15-1 31, magnesium 1.9 Imaging: Chest x-ray independently interpreted, shows interstitial opacities, improving compared to yesterday. Assessment and Plan: CAD status post CABG Reactive leukocytosis, anticipated outcome of surgery Unstable angina Symptomatic carotid artery stenosis Hypertension Dyslipidemia Hyperglycemia - Patient currently on aspirin 325, amlodipine 5, atorvastatin 80, Plavix 75, metoprolol increased to 50 twice daily -Cardiothoracic surgery note reviewed, discontinue IV nitro and Cardizem, PT/OT, discontinue [place], continue chest tubes for another 24 hours, continue Starks catheter for another 24 hours. -ICU and cardiology note reviewed, continue current management -Pain control with oral Tylenol as needed, oral oxycodone as needed, monitor for sedation -Pantoprazole 40 daily -Hyperglycemia likely stress-induced, insulin drip discontinued, switch to sliding scale insulin, monitor for hypoglycemia -Vascular surgery recommending outpatient follow-up. DVT ppx: Subcu heparin Code status: Full code Anticipated discharge place: Pending clinical course Anticipated discharge time: Pending clinical course Objective - Vital Signs Vital signs: Vital Signs Temp 98 F 12/14/23 12:00 Pulse 90 12/14/23 13:00 Resp 10 L 12/14/23 13:00 BP 119/65 12/14/23 13:00 Pulse Ox 91 L 12/14/23 13:00 FiO2 50 12/12/23 16:14 Intake & Output 12/13/23 12/14/23 12/14/23 18:59 06:59 18:59 Intake Total 1081.295 533.002 530 Output Total 1050 840 210 Balance 31.295 -306.998 320 Weight 99.8 kg 101.9 kg Intake: IV 381 312 130 Lactated Ringers 1,000 ml 300 240 100 @ 20 mls/hr IV .Q24H SAJI Rx#:[id number] NS for pressure flush 81 72 30 Intake, IV Titration 50.295 1.002 Amount Insulin Regular 100 unit 0.295 1.002 In Sodium Chloride 0.9% 100 ml @ Per Protocol IV .Q0M SAJI Rx#:[id number] ceFAZolin 2 gm In Sodium 50 Chloride 0.9% 50 ml @ 100 mls/hr IVPB Q8HR SAJI Rx# :[id number] Oral 650 220 400 Output: Chest Tube Drainage 400 [address] 220 190 90 MSCT x1 180 180 10 Drainage 0 0 Lt arm 0 0 Urine 650 470 110 Other: Voiding Method Indwelling Catheter Indwelling Catheter Indwelling Catheter ABP, PAP, CO, CI - Last Documented Arterial Blood Pressure 129/64 Pulmonary Artery Pressure 12/10 Cardiac Output 6.8 Cardiac Index 3.2 - Labs CBC & Chem 7: 12/14/23 03:59 12/14/23 03:59 Labs: Abnormal Lab Results - Last 24 Hours (Table) 12/13/23 12/13/23 12/13/23 Range/Units 16:20 18:05 20:01 WBC (3.8-10.6) k/uL RBC (4.30-5.90) m/uL Hgb (13.0-17.5) gm/dL Hct (39.0-53.0) % Plt Count (150-450) k/uL Neutrophils # (1.3-7.7) k/uL Sodium (137-145) mmol/L Glucose (74-99) mg/dL POC Glucose (mg/dL) 121 H 136 H 144 H (70-110) mg/dL Total Protein (6.3-8.2) g/dL 12/13/23 12/14/23 12/14/23 Range/Units 21:58 00:16 02:13 WBC (3.8-10.6) k/uL RBC (4.30-5.90) m/uL Hgb (13.0-17.5) gm/dL Hct (39.0-53.0) % Plt Count (150-450) k/uL Neutrophils # (1.3-7.7) k/uL Sodium (137-145) mmol/L Glucose (74-99) mg/dL POC Glucose (mg/dL) 124 H 113 H 115 H (70-110) mg/dL Total Protein (6.3-8.2) g/dL 12/14/23 12/14/23 12/14/23 Range/Units 03:58 03:59 03:59 WBC 12.0 H (3.8-10.6) k/uL RBC 3.37 L (4.30-5.90) m/uL Hgb 10.6 L (13.0-17.5) gm/dL Hct 30.6 L (39.0-53.0) % Plt Count 93 L (150-450) k/uL Neutrophils # 9.5 H (1.3-7.7) k/uL Sodium 132 L (137-145) mmol/L Glucose 115 H (74-99) mg/dL POC Glucose (mg/dL) 129 H (70-110) mg/dL Total Protein 5.6 L (6.3-8.2) g/dL 12/14/23 12/14/23 Range/Units 06:23 08:09 WBC (3.8-10.6) k/uL RBC (4.30-5.90) m/uL Hgb (13.0-17.5) gm/dL Hct (39.0-53.0) % Plt Count (150-450) k/uL Neutrophils # (1.3-7.7) k/uL Sodium (137-145) mmol/L Glucose (74-99) mg/dL POC Glucose (mg/dL) 131 H 131 H (70-110) mg/dL Total Protein (6.3-8.2) g/dL
--- NOTE | 2023-12-14 15:51 | P.PN ---
Subjective Severe coronary artery disease The patient is a pleasant 68-year-old gentleman who was diagnosed recently with severe symptomatic triple-vessel coronary artery disease and he is going to undergo CABG this coming Tuesday. Beside that he does have carotid atherosclerosis and hypertension and dyslipidemia. The echo revealed normal LV systolic function. December 10, 2023 The patient was seen and evaluated this morning. He is asymptomatic. He is on nitro drip and heparin drip. He is on aspirin and high intensity statin and beta-poppy. The examination revealed regular rhythm with clear breathing sounds bilaterally and no lower extremities edema noted. He reports no pain in the chest and no shortness of breath and no dizziness or lightheadedness and no feeling of heart racing or fluttering and no presyncope or syncope December 11, 2023 The patient was seen and evaluated this morning. He is stable. He is asymptomatic and reports no pain in the chest and no shortness of breath on the current dose of heparin as well as IV nitrates. He is hemodynamically stable with a good blood pressure and heart rate. He is also on aspirin and statin. The plan is to proceed with open heart surgery tomorrow morning. Examination revealed regular rhythm with clear breathing sounds bilaterally and no edema was noted in the lower extremities 12/12 Patient underwent successful 2 vessel CABG yesterday with YANES to LAD, left radial to OM and ligation of left atrial appendage. He remains in sinus rhythm with some sinus tachycardia. He is on IV nitroglycerin and Cardizem drip for blood pressure. His blood pressure more recently has spiked however he is in significant pain from his incision. This was better controlled previously. 12/13 patient seen and examined. Patient states overall he has been doing well. He denies any chest pain or pressure. Denies any significant shortness breath. He has been tolerating diet. He is still having some issues with urinary retention however overall is feeling well. Assessment Severe triple-vessel coronary artery disease, s/p CABG YANES to LAD, radial to OM Multiple comorbid conditions including hypertension and dyslipidemia and carotid atherosclerosis Plan Continue with aspirin and Plavix. Blood pressure is much better controlled today. Continue with amlodipine for radial graft as well as amiodarone. Continue with current supportive care. Follow-up with patient. Objective - Vital Signs Vital signs: Vital Signs Temp 98 F 12/14/23 12:00 Pulse 85 12/14/23 15:00 Resp 18 12/14/23 15:00 BP 122/71 12/14/23 15:00 Pulse Ox 94 L 12/14/23 15:00 FiO2 50 12/12/23 16:14 Intake & Output 12/13/23 12/14/23 12/14/23 18:59 06:59 18:59 Intake Total 1081.295 121.841 7194 Output Total 1050 840 310 Balance 31.295 -306.998 820 Weight 99.8 kg 101.9 kg Intake: IV 381 312 130 Lactated Ringers 1,000 ml 300 240 100 @ 20 mls/hr IV .Q24H SAJI Rx#:[id number] NS for pressure flush 81 72 30 Intake, IV Titration 50.295 1.002 Amount Insulin Regular 100 unit 0.295 1.002 In Sodium Chloride 0.9% 100 ml @ Per Protocol IV .Q0M [facility]JI Rx#:[id number] ceFAZolin 2 gm In Sodium 50 Chloride 0.9% 50 ml @ 100 mls/hr IVPB Q8HR [facility]I Rx# :[id number] Oral 077 943 2948 Output: Chest Tube Drainage 400 [address] 220 190 90 MSCT x1 180 180 10 Drainage 0 0 Lt arm 0 0 Urine 650 470 210 Other: Voiding Method Indwelling Catheter Indwelling Catheter Indwelling Catheter ABP, PAP, CO, CI - Last Documented Arterial Blood Pressure 129/64 Pulmonary Artery Pressure 12/10 Cardiac Output 6.8 Cardiac Index 3.2 - Labs CBC & Chem 7: 12/14/23 03:59 12/14/23 03:59 Labs: Abnormal Lab Results - Last 24 Hours (Table) 12/13/23 12/13/23 12/13/23 Range/Units 16:20 18:05 20:01 WBC (3.8-10.6) k/uL RBC (4.30-5.90) m/uL Hgb (13.0-17.5) gm/dL Hct (39.0-53.0) % Plt Count (150-450) k/uL Neutrophils # (1.3-7.7) k/uL Sodium (137-145) mmol/L Glucose (74-99) mg/dL POC Glucose (mg/dL) 121 H 136 H 144 H (70-110) mg/dL Total Protein (6.3-8.2) g/dL 12/13/23 12/14/23 12/14/23 Range/Units 21:58 00:16 02:13 WBC (3.8-10.6) k/uL RBC (4.30-5.90) m/uL Hgb (13.0-17.5) gm/dL Hct (39.0-53.0) % Plt Count (150-450) k/uL Neutrophils # (1.3-7.7) k/uL Sodium (137-145) mmol/L Glucose (74-99) mg/dL POC Glucose (mg/dL) 124 H 113 H 115 H (70-110) mg/dL Total Protein (6.3-8.2) g/dL 12/14/23 12/14/23 12/14/23 Range/Units 03:58 03:59 03:59 WBC 12.0 H (3.8-10.6) k/uL RBC 3.37 L (4.30-5.90) m/uL Hgb 10.6 L (13.0-17.5) gm/dL Hct 30.6 L (39.0-53.0) % Plt Count 93 L (150-450) k/uL Neutrophils # 9.5 H (1.3-7.7) k/uL Sodium 132 L (137-145) mmol/L Glucose 115 H (74-99) mg/dL POC Glucose (mg/dL) 129 H (70-110) mg/dL Total Protein 5.6 L (6.3-8.2) g/dL 12/14/23 12/14/23 Range/Units 06:23 08:09 WBC (3.8-10.6) k/uL RBC (4.30-5.90) m/uL Hgb (13.0-17.5) gm/dL Hct (39.0-53.0) % Plt Count (150-450) k/uL Neutrophils # (1.3-7.7) k/uL Sodium (137-145) mmol/L Glucose (74-99) mg/dL POC Glucose (mg/dL) 131 H 131 H (70-110) mg/dL Total Protein (6.3-8.2) g/dL
[2023-12-14 16:44] LABS: Glucose,Whole Blood 128 mg/dL (70-110)
[2023-12-14 19:29] LABS: Glucose,Whole Blood 137 mg/dL (70-110)
[2023-12-15 05:54] LABS: Glucose,Whole Blood 123 mg/dL (70-110)
[2023-12-15 05:58] LABS: Basophils % (A) 0 %; Eosinophils # (A) 0.2 k/uL (0-0.7); Eosinophils % (A) 2 %; HCT 30.3 % (39.0-53.0); HGB 10.4 gm/dL (13.0-17.5); Lymphocytes # (A) 1.1 k/uL (1.0-4.8); Lymphocytes % (A) 10 %; MCH 31.1 pg (25.0-35.0); MCHC 34.2 g/dL (31.0-37.0); MCV 90.9 fL (80.0-100.0); Monocytes # (A) 0.6 k/uL (0-1.0); Monocytes % (A) 6 %; Neutrophils # (A) 8.9 k/uL (1.3-7.7); Neutrophils % (A) 80 %; Platelet Count 100 k/uL (150-450); RBC 3.33 m/uL (4.30-5.90); RDW 12.9 % (11.5-15.5); WBC 11.1 k/uL (3.8-10.6)
[2023-12-15 06:37] LABS: ALT 21 U/L (4-49); AST 55 U/L (17-59); African American GFR (CKD) >90 (>60 ml/min/1.73 sqM); Albumin 3.5 g/dL (3.5-5.0); Alkaline Phosphatase 57 U/L (38-126); Anion Gap 7 mmol/L; Blood Urea Nitrogen 17 mg/dL (9-20); Calcium 8.6 mg/dL (8.4-10.2); Carbon Dioxide 22 mmol/L (22-30); Chloride 101 mmol/L (98-107); Glucose 109 mg/dL (74-99); Non-African American GFR(CKD) >90 (>60 ml/min/1.73 sqM); Sodium 130 mmol/L (137-145); Total Protein 5.8 g/dL (6.3-8.2)
--- NOTE | 2023-12-15 08:23 | P.PN ---
Subjective Progress Note Date: 12/15/23 Principal diagnosis: Triple-vessel coronary artery disease, left main disease, unstable angina. Known history of carotid artery stenosis being followed outpatient by Dr. Quiroz, hypertension, hyperlipidemia, osteoarthritis, previous tobacco dependence POD#3 off pump coronary artery bypass grafting x 2, left internal thoracic artery (in-situ) to left anterior descending coronary artery, left radial artery from aorta to obtuse marginal artery, left atrial appendage ligation using #35mm AtriClip, endoscopic left radial artery harvest, trans-esophageal echo Postoperative acute blood loss anemia and thrombocytopenia, expected given hemodilution The patient was seen and examined this morning with Dr. Goldstein sitting up in a recliner in the intensive care unit in no acute distress eating breakfast. States post surgical pain is controlled on current medication regimen, denies shortness of breath. Remains in sinus rhythm to sinus tach, blood pressure stable. Currently on room air with oxygen saturations in the high 90s. CXR, labs reviews reviewed. Patient has been ambulatory in the [facility] with assistance, tolerated well. Will be transferred to [facility] today. No other new concerns. Objective - Vital Signs Vital signs: Vital Signs Temp 98.1 F 12/15/23 03:53 Pulse 94 12/15/23 03:53 Resp 12 12/15/23 03:53 BP 133/68 12/15/23 03:53 Pulse Ox 97 12/15/23 03:53 FiO2 50 12/12/23 16:14 Intake & Output 12/14/23 12/15/23 12/15/23 18:59 06:59 18:59 Intake Total 1730 Output Total 660 Balance 1070 Intake: IV 130 Lactated Ringers 1,000 ml 100 @ 20 mls/hr IV .Q24H [facility]JI Rx#:[id number] NS for pressure flush 30 Oral 1600 Output: Chest Tube Drainage [address] 90 MSCT x1 10 Drainage 0 Lt arm 0 Urine 560 Other: Voiding Method Urinal Urinal # Voids 8 ABP, PAP, CO, CI - Last Documented Arterial Blood Pressure 129/64 Pulmonary Artery Pressure 12/10 Cardiac Output 6.8 Cardiac Index 3.2 - Exam CONSTITUTIONAL: Appears comfortable, cooperative, no acute distress RESPIRATORY: Lungs sounds diminished bilaterally. Respirations even, nonlabored. Currently on room air with oxygen saturation 99%. Able to achieve 1500 mL on incentive spirometry. Strong cough. CARDIOVASCULAR: S1, S2 present. Regular rate and rhythm, sinus rhythm to sinus tach on telemetry. Sternum stable. Palpable peripheral pulses bilaterally. No edema present. No calf pain or tenderness noted. Heart hugger in place with patient demonstrating appropriate use. Antiembolism stockings, SCDs present. GASTROINTESTINAL: Abdomen soft, nontender, nondistended. Active bowel sounds present 4 quadrants. Tolerating diet. Positive flatus, negative bowel movement since surgery GENITOURINARY: Starks discontinued yesterday, patient continues to void although not always captured in a urinal INTEGUMENTARY: Skin is warm and dry with evidence of good perfusion. Anterior chest incision well approximated and covered with dry intact dressing. Left radial artery harvest site well approximated without redness NEUROLOGIC: Cranial nerves II through XII intact MUSKULOSKELETAL: Able to move all extremities, strength equal bilaterally, gait normal PSYCHIATRIC: Alert and oriented to person place and time, appropriate affect, intact judgment and insight INVASIVE LINES AND TUBES: Ventricular epicardial pacemaker wires present, grounded - Allied health notes Allied health notes reviewed: nursing - Labs CBC & Chem 7: 12/15/23 05:07 12/15/23 05:07 Labs: Abnormal Lab Results - Last 24 Hours (Table) 12/14/23 12/14/23 12/15/23 Range/Units 16:42 19:28 05:07 WBC 11.1 H (3.8-10.6) k/uL RBC 3.33 L (4.30-5.90) m/uL Hgb 10.4 L (13.0-17.5) gm/dL Hct 30.3 L (39.0-53.0) % Plt Count 100 L (150-450) k/uL Neutrophils # 8.9 H (1.3-7.7) k/uL Sodium (137-145) mmol/L Glucose (74-99) mg/dL POC Glucose (mg/dL) 128 H 137 H (70-110) mg/dL Total Protein (6.3-8.2) g/dL 12/15/23 12/15/23 Range/Units 05:07 05:53 WBC (3.8-10.6) k/uL RBC (4.30-5.90) m/uL Hgb (13.0-17.5) gm/dL Hct (39.0-53.0) % Plt Count (150-450) k/uL Neutrophils # (1.3-7.7) k/uL Sodium 130 L (137-145) mmol/L Glucose 109 H (74-99) mg/dL POC Glucose (mg/dL) 123 H (70-110) mg/dL Total Protein 5.8 L (6.3-8.2) g/dL - Imaging and Cardiology Chest x-ray: image reviewed Assessment and Plan Assessment: Triple-vessel coronary artery disease, left main disease, unstable angina, status post 2 vessel off pump CABG Known history of carotid artery stenosis being followed outpatient by Dr. Quiroz, remains asymptomatic Hypertension Hyperlipidemia, treated, cholesterol 164, LDL 85 Osteoarthritis Previous tobacco dependence, preoperative FEV1 105% of predicted Postoperative acute blood loss anemia and thrombocytopenia, expected Plan: Continue to maximize medical therapy with aspirin, Plavix, statin, beta-poppy. Will increase beta-poppy therapy as tolerated Continue oral calcium channel poppy for radial artery spasm prophylaxis Encourage incentive spirometry use 10 times every hour while awake. Bronchodilators per pulmonology Increase activity, ambulate as tolerated. PT/OT/cardiac rehab consulted Will monitor daily labs and x-rays. Electrolyte replacement per protocol GI/DVT prophylaxis Pain control per current medication regimen Insulin management per internal medicine, patient is not diabetic, hemoglobin A1c 5.4% Will discontinue epicardial pacemaker wires today, patient to remain on bedrest for 1 hour post wire removal Continue to record strict accurate intake and output Daily weights Transfer orders placed for 3 S. cardiac stepdown unit, bed available and patient will be transferred today Discharge planning in progress, anticipate discharge to home with home care in the next 24 to 48 hours More recommendations to follow based on patient's progress
--- NOTE | 2023-12-15 09:18 | XR ---
EXAMINATION TYPE: XR chest 2V DATE OF EXAM: 12/15/2023 COMPARISON: 12/14/2023 HISTORY: 68 year-old male post cardiac surgery TECHNIQUE: PA and lateral views FINDINGS: Heart upper limits of normal in size. Median sternotomy wires and post-CABG clips. Scattered patchy i nterstitial opacities persist. Some of the patchy retrocardiac density show some improvement. Interva l removal of bilateral chest tubes. Possible trace 1 cm right apical pneumothorax. Trace left effusio n persists. IMPRESSION: 1. Removal of bilateral chest tubes. Trace 1 cm right apical pneumothorax. Called to [facility] in 2SICU at 9am. 2. Some patchy interstitial changes, possible pulmonary vascular congestion remains. Similar trace l eft effusion. 3. Some improvement in aeration left base.
[2023-12-15] MEDS: TAMSULOSIN 0.4 MG CAP.ER.24H PO STA (10:03)
--- NOTE | 2023-12-15 10:53 | P.PN ---
Subjective Progress Note Date: 12/15/23 Hospital Course: Patient is a very pleasant 68-year-old male with a past medical history of car otid artery stenosis with right internal carotid artery of 70% stenosis and left internal carotid 50 to 60% stenosed, hyperlipidemia, osteoarthritis, and former nicotine dependence quitting smoking in 1995. He presented to the emergency department with a chief complaint of chest pain, dizziness, and palpitations. Patient reports chest pain has been ongoing x 1 week accompanied by significant dizziness/lightheadedness, palpitations, and shortness of breath. Patient describes pain to chest as a tightening sensation and denies radiation of pain. He reports all of these symptoms are exacerbated with exertion. He denies experiencing any headache, changes in vision or hearing, cough or congestion, nausea or vomiting, diaphoresis, or experiencing any numbness/tingling/weakness/swelling in his extremities. Patient reports his carotid artery stenosis was recently diagnosed and he was supposed to follow-up with vascular surgeon to schedule carotid endarterectomy, his at bedside reports that she called the office today secondary to discovering her 's new complaints of chest pain, dizziness/lightheadedness, palpitations, and exertional dyspnea and was told by the PA at the office to go to the emergency department immediately as Dr. Quiroz is currently out of town and he will need to be evaluated by one of his associates. He underwent evaluation in the emergency department. Vital signs upon arrival show blood pressure 171/94, heart rate 95, respiratory rate 20, temp 98.1 F, and SpO2 of 99% on room air. EKG completed showing normal sinus rhythm 87 bpm with T wave inversion in lateral lead aVL and mild ST depression in lead II. Chest x-ray completed negative for acute cardiopulmonary process. Labs completed and reviewed. CBC unremarkable. Coagulation profile normal findings. BMP revealing mild hyperchloremia with chloride of 108 otherwise normal findings. Blood glucose was 113. Liver profile unremarkable. Magnesium slightly low at 1.7. Troponin negative at less than 0.012. Patient was admitted under our services with consultation to cardiology and vascular surgery. Heart score 5. Troponins trended overnight all negative at less than 0.012 x 3 draws. Cardiology consulted, took patient for cardiac stress test which is reported to be abnormal, with poor exercise tolerance and severe EKG changes. Echocardiogram demonstrates ejection fraction of 50 to 55% with mildly increased septal wall thickness, normal RVSP; stress echo did demonstrate wall motion abnormality in the distribution of the LAD. Left heart cath showed significant 80 to 90% left main disease. Cardiothoracic surgery consulted. Patient underwent CABG x 2. Currently in medical ICU. Overall improving. Subjective: Patient seen and examined at bedside. No acute events overnight. Did have issues with urinary retention, currently without Starks catheter. Pertinent positives and negatives as discussed above, a complete review of systems was performed and all other systems are negative. Vitals Signs Reviewed. General: Nontoxic, no distress, appears at stated age Derm: Warm, dry, dressing clean, dry, intact Head: Atraumatic, normocephalic, symmetric Eyes: EOMI, no lid lag, anicteric sclera Mouth: No lip lesion, mucus membranes moist Cardiovascular: S1S2 reg, no murmur Lungs: CTA bilateral, no rhonchi, no rales, no accessory muscle use Abdominal: Soft, nontender to palpation, no guarding, no appreciable organomegaly Ext: No gross muscle atrophy, no edema, no contractures Neuro: CN II-XI grossly intact, no focal neuro deficits Psych: Alert, oriented, appropriate affect Data Reviewed Today: Pertinent Labs: WBC 11.1, hemoglobin 10.4, platelet 200, sodium 130, potassium 4, creatinine 0.72, blood sugars range between 10 9-1 37, magnesium 2.0 Imaging: Chest x-ray independently interpreted, status post chest tube removal, small right apical pneumothorax, interstitial opacities improved Assessment and Plan: CAD status post CABG Small apical pneumothorax, currently asymptomatic Reactive leukocytosis, anticipated outcome of surgery Blood loss anemia, anticipated outcome of surgery Unstable angina present on admission Asymptomatic carotid artery stenosis Hypertension Dyslipidemia Hyperglycemia, stress-induced Urinary retention - Patient currently on aspirin 325, amlodipine 5, atorvastatin 80, Plavix 75, metoprolol 50 twice daily -Cardiothoracic surgery note reviewed, downgrade to 3 S., discharge planning, possible discharge in the next 24 to 48 hours -ICU and cardiology following -Pain control with oral Tylenol as needed, oral oxycodone as needed, monitor for sedation -Pantoprazole 40 daily -Hyperglycemia likely stress-induced, continue on sliding scale insulin, monitor for hypoglycemia -Vascular surgery recommending outpatient follow-up. -Started on Flomax 0.4 daily DVT ppx: Subcu heparin Code status: Full code Anticipated discharge place: Pending clinical course Anticipated discharge time: Pending clinical course Objective - Vital Signs Vital signs: Vital Signs Temp 98.3 F 12/15/23 08:25 Pulse 100 12/15/23 09:18 Resp 16 12/15/23 09:18 BP 118/66 12/15/23 08:25 Pulse Ox 95 12/15/23 09:09 FiO2 50 12/12/23 16:14 Intake & Output 12/14/23 12/15/23 12/15/23 18:59 06:59 18:59 Intake Total 1730 250 Output Total 660 625 Balance 1070 -375 Weight 103 kg Intake: IV 130 10 Invasive Line 2 10 Lactated Ringers 1,000 ml 100 @ 20 mls/hr IV .Q24H SAJI Rx#:[id number] NS for pressure flush 30 Oral 1600 240 Output: Chest Tube Drainage [address] 90 MSCT x1 10 Drainage 0 Lt arm 0 Urine 560 625 Straight 475 Other: Voiding Method Urinal Urinal Urinal # Voids 8 ABP, PAP, CO, CI - Last Documented Arterial Blood Pressure 129/64 Pulmonary Artery Pressure 12/10 Cardiac Output 6.8 Cardiac Index 3.2 - Labs CBC & Chem 7: 12/15/23 05:07 12/15/23 05:07 Labs: Abnormal Lab Results - Last 24 Hours (Table) 12/14/23 12/14/23 12/15/23 Range/Units 16:42 19:28 05:07 WBC 11.1 H (3.8-10.6) k/uL RBC 3.33 L (4.30-5.90) m/uL Hgb 10.4 L (13.0-17.5) gm/dL Hct 30.3 L (39.0-53.0) % Plt Count 100 L (150-450) k/uL Neutrophils # 8.9 H (1.3-7.7) k/uL Sodium (137-145) mmol/L Glucose (74-99) mg/dL POC Glucose (mg/dL) 128 H 137 H (70-110) mg/dL Total Protein (6.3-8.2) g/dL 12/15/23 12/15/23 Range/Units 05:07 05:53 WBC (3.8-10.6) k/uL RBC (4.30-5.90) m/uL Hgb (13.0-17.5) gm/dL Hct (39.0-53.0) % Plt Count (150-450) k/uL Neutrophils # (1.3-7.7) k/uL Sodium 130 L (137-145) mmol/L Glucose 109 H (74-99) mg/dL POC Glucose (mg/dL) 123 H (70-110) mg/dL Total Protein 5.8 L (6.3-8.2) g/dL
[2023-12-15 11:35] LABS: Glucose,Whole Blood 118 mg/dL (70-110)
--- NOTE | 2023-12-15 12:02 | P.PN ---
Subjective Progress Note Date: 12/15/23 Principal diagnosis: Coronary disease. This is a very pleasant 68-year-old male patient with a known history of hypertension, hyperlipidemia, osteoarthritis, carotid artery stenosis, former smoker of 20 years however quit back in 1995. He had not been on any inhalers or pulmonary medications in the outpatient setting. He had been quite active riding his bike frequently up to 10 miles at a time. He had presented to the emergency room on 12/06/2023 with complaints of chest pain and shortness of breath. Catheterization on 12/07/2023 revealed one-vessel coronary artery disea se with severe left main stenosis up to 80 to 90%. The plan is for coronary artery bypass grafting on 12/12/2023. He is currently sitting up in a chair. Awake and alert in no acute distress. Maintaining good O2 saturations in the 90s on room air. He has a heparin drip as well as a nitroglycerin drip at 2.5 mcg/min. He denies any chest pain. No worsening shortness of breath, cough or congestion. He is working well with the incentive spirometer. Count 7.2. Hemoglobin 14.9. Platelets 176. Sodium 143. Potassium 4.3. Bicarb 24. BUN 18. Creatinine 0.87. Chest x-ray revealed no acute cardiopulmonary process. CT scan of the chest revealed no acute pulmonary process. FEV1 value 105% of predicted. Patient was reevaluated today on 12/10/2023, patient is doing well, he is scheduled to undergo bypass surgery on Tuesday. Presently he is asymptomatic, no cough no wheezing no shortness of breath no chest pain, practicing with incentive spirometry, ambulating in the hallway, denies any specific complaints.WBC count is 6.2 hemoglobin 15.1 heparin is therapeutic and PTT is 95.9 basic metabolic profile is normal renal profile is normal Reevaluate today on 12/11/2023, patient is still scheduled for CABG tomorrow, doing well asymptomatic doing great with incentive spirometry, has no active pulmonary symptoms, patient is cleared for surgery and considered low operative risk. Family is at bedside with the patient today. Progress note dated December 12, 2023. 68-year-old male, postop day #0, status post two-vessel bypass surgery. The surgery was done off-pump. He had a YANES to LAD bypass, and HIPOLITO to OM1. The patient is now back in the intensive care unit, room 251. Current ventilator settings include volume assist-control rate 16, tidal volume 450, FiO2 50%, and PEEP of 8. On settings of 100%, and a rate of 12, his gases were pO2 greater than 400, pCO2 52, pH is 7.28. His cardiac output is 6.6. His index is 3.1. He is getting propofol at 20 mcg/kg/min, insulin drip at 1 unit an hour, lactated Ringer's at 50 cc an hour, nitroglycerin at 5 mcg/min, and dexmedetomi dine at 0.7 mcg/kg/h. Current labs include a white count 15.8, hemoglobin 12.1, hematocrit 34.6, and platelet count 116,000. Sodium 140, potassium 3.9, chlorides 112, CO2 21, BUN 14, and creatinine 0.73. Glucose is 137. Chest x- ray shows a well-positioned endotracheal tube, a PA catheter, and relatively clear lung almanza. Progress note dated December 13, 2023. 68-year-old male, postop day #1, status post two-vessel bypass surgery. The patient is seen today in room 251. The patient is currently on room air. The patient is getting lactated Ringer's at 50 cc an hour. This was an off-pump t wo-vessel bypass surgery. Clinically, the patient is sore in the surgical area, but other than that, seem to be doing relatively well. He does continue to work on his incentive spirometer. Current laboratory data includes a white count 13.6, hemoglobin 11.9, hematocrit 35.4, and a platelet count of 134,000. Sodium 137, potassium 3.7, chlorides 108, CO2 23, BUN 14, and creatinine 0.73. Glucose is 122. Liver function test were normal. The patient's albumin was 3.8. Urine is negative. Chest x-ray shows some postsurgical changes, and some basilar atelectasis, with a small left-sided pleural effusion. Progress note dated December 14, 2023. 68-year-old male postop day #2, status post two-vessel bypass surgery. The patient is seen today in room 251. He remains on room air. He is getting saline at 20 cc an hour. This morning, he has some nausea, and he feels queasy, but other than that, he is doing pretty well. Current labs are good white count 12, hemoglobin 10.6, hematocrit 38.6 and platelet count 93,000. Sodium 132, potassium 3.8, chlorides 103, CO2 24, anion gap normal, BUN 14, and creatinine 0.67. Glucose is 131. Albumin 3.6. Chest x-ray shows some postsurgical change s, and some mild fluid overload. Progress note dated December 15, 2023. 68-year-old male postop day #3, status post two-vessel bypass surgery. The patient was seen in room 251. He is currently on room air. No IV fluids. The patient appears to be doing relatively well. Current labs include a white count 11.1, hemoglobin 10.4, hematocrit 30.3, and a platelet count of 100,000. Sodium 130, potassium 4, chlorides 101, CO2 22, anion gap 7, BUN 17, creatinine 0.72. Glucose is 109. Albumin is 3.5. Chest x-ray shows improved aeration bilaterally. Small patchy infiltrates are noted, likely atelectasis. Small pleural effusion. There may be a small right 1 cm right apical pneumothorax. Objective - Vital Signs Vital signs: Vital Signs Temp 98.3 F 12/15/23 08:25 Pulse 100 12/15/23 09:18 Resp 16 12/15/23 09:18 BP 118/66 12/15/23 08:25 Pulse Ox 95 12/15/23 09:09 FiO2 50 12/12/23 16:14 Intake & Output 12/14/23 12/15/23 12/15/23 18:59 06:59 18:59 Intake Total 1730 250 Output Total 660 625 Balance 1070 -375 Weight 103 kg Intake: IV 130 10 Invasive Line 2 10 Lactated Ringers 1,000 ml 100 @ 20 mls/hr IV .Q24H SAJI Rx#:[id number] NS for pressure flush 30 Oral 1600 240 Output: Chest Tube Drainage [address] 90 MSCT x1 10 Drainage 0 Lt arm 0 Urine 560 625 Straight 475 Other: Voiding Method Urinal Urinal Urinal # Voids 8 ABP, PAP, CO, CI - Last Documented Arterial Blood Pressure 129/64 Pulmonary Artery Pressure 12/10 Cardiac Output 6.8 Cardiac Index 3.2 - Exam No acute distress, extubated, currently on room air. No respiratory distress or difficulty. HEENT examination is grossly unremarkable. Neck supple. Full range of motion. No adenopathy thyromegaly or neck vein distention. Cardiovascular examination reveals regular rhythm rate. S1-S2 normal. No S3 or S4. No discernible murmur noted. Heart rate 95 bpm. Lungs reveal clear breath sounds. Breath sounds are equal bilaterally. No adventitious lung sounds including wheezes rhonchi or crackles. Saturations are 95 %. Abdomen soft without bowel sounds. No masses. Extremities are intact. No cyanosis clubbing or edema. Skin is without rash or lesion. Neurologic examination is brief but nonfocal. - Labs CBC & Chem 7: 12/15/23 05:07 12/15/23 05:07 Labs: Abnormal Lab Results - Last 24 Hours (Table) 12/14/23 12/14/23 12/15/23 Range/Units 16:42 19:28 05:07 WBC 11.1 H (3.8-10.6) k/uL RBC 3.33 L (4.30-5.90) m/uL Hgb 10.4 L (13.0-17.5) gm/dL Hct 30.3 L (39.0-53.0) % Plt Count 100 L (150-450) k/uL Neutrophils # 8.9 H (1.3-7.7) k/uL Sodium (137-145) mmol/L Glucose (74-99) mg/dL POC Glucose (mg/dL) 128 H 137 H (70-110) mg/dL Total Protein (6.3-8.2) g/dL 12/15/23 12/15/23 12/15/23 Range/Units 05:07 05:53 11:33 WBC (3.8-10.6) k/uL RBC (4.30-5.90) m/uL Hgb (13.0-17.5) gm/dL Hct (39.0-53.0) % Plt Count (150-450) k/uL Neutrophils # (1.3-7.7) k/uL Sodium 130 L (137-145) mmol/L Glucose 109 H (74-99) mg/dL POC Glucose (mg/dL) 123 H 118 H (70-110) mg/dL Total Protein 5.8 L (6.3-8.2) g/dL Assessment and Plan Assessment: Postop day #3, S/P two-vessel off-pump bypass, YANES to LAD, HIPOLITO to OM1. Routine postoperative ventilator management, with extubation on December 12, 2023. History of hypertension. History of hyperlipidemia. History of osteoarthritis. Remote history of tobacco use, quit 1995. Carotid artery stenosis, asymptomatic. Plan: Plan dated December 12, 2023. The patient is seen today in room 251. He is postop day #0, status post two-ves conrad off-pump bypass. We have already made some ventilator changes, increasing the rate from 12-16, and dropping the FiO2 from 100% down to 50%. The patient continues on nitroglycerin, dexmedetomidine, insulin, lactated Ringer's, and propofol. Cardiac output was 6.6. Index was 3.1. We will continue to follow and make recommendations along the way. Plan dated December 13, 2023. The patient actually did very well yesterday, and had excellent weaning parameters, was awake and alert, with a good cuff leak, and a very low rapid shallow breathing index. For that reason, the patient was extubated. Currently he is on room air. He is getting lactated Ringer's at 50 cc an hour. His chest x-ray shows postsurgical changes. We will continue to follow make recommendations along the way. Labs, x-rays, and all medications are reviewed. Plan dated December 14, 2023. The patient is currently on room air. He is seen in room 251. He is getting saline at 20 cc an hour. The patient is a bit nauseated, and feeling a bit queasy. Denies any chest pain or chest discomfort. No shortness of breath, cough, wheezing, chest tightness, or phlegm production. Labs, x-rays, medications are reviewed. We encourage him to continue to use the incentive spirometer. Additional recommendations and suggestions are forthcoming. Plan dated December 15, 2023. The patient appears to be doing relatively well. He may be moved out of the ICU later today. He is on room air. No IV fluids. Today is postop day #3. Labs, x-rays, and medications are reviewed. Patient's chest x-ray is reviewed. The patient's chest x-ray stable. Respiratory status is stable. He denies any shortness of breath. We will continue to follow make recommendations along the way. Prognosis is guarded. We recommend continued use of the incentive spirometer. Time with Patient: Less than 30
[2023-12-15] MEDS: MD COMMUNICATION TO PHARMACY 1 EACH MISC PO ONE ×4 (12:55→12:56)
[2023-12-15] MEDS: ALBUMIN HUMAN 25% 50 ML in EMPTY BAG 1 BAG IVPB ONE (12:56)
[2023-12-15] MEDS: ALBUMIN HUMAN 5% 500 ML in EMPTY BAG 1 BAG IVPB ONE ×5 (12:56→12:57)
[2023-12-15] MEDS: CALCIUM CHLORIDE 100 MG/ML 10 ML SYRINGE IVP ONE (12:58)
[2023-12-15] MEDS: ceFAZolin 1,000 MG in SODIUM CHLORIDE 0.9% IRRIGATIO 1,000 ML IRRIGATION ONE (12:58)
[2023-12-15] MEDS: HEPARIN SODIUM,PORCINE (1 ML) 5,000 UNIT in SODIUM CHLORIDE 0.9% 500 ML 500 ML IV ONE (12:59)
[2023-12-15] MEDS: CHLORHEXIDINE GLUCONATE 15 ML CUP MUCOUS MEM ONE (12:59)
[2023-12-15] MEDS: CLEVIDIPINE BUTYRATE 25 MG in EMPTY BAG 1 BAG IV SCH (12:59)
[2023-12-15] MEDS: HEPARIN SODIUM 1,000 UN/ML (10ML VL) IV ONE (12:59)
[2023-12-15] MEDS: MANNITOL 25% 12.5 GM/50 ML VIAL IV ONE ×2 (13:00)
[2023-12-15] MEDS: MAGNESIUM SULFATE 16.24 MEQ in EMPTY SYRINGE 1 SYR IV ONE (13:00)
[2023-12-15] MEDS: NITROGLYCERIN-D5W PMX 25 MG/250 ML BTL IV ONE (13:01)
[2023-12-15] MEDS: NITROGLYCERIN-D5W PMX 50 MG in DEXTROSE/WATER 1 250ML.BAG IV SCH (13:01)
[2023-12-15] MEDS: PHENYLEPHRINE 10 MG/ML VIAL IV ONE (13:02)
[2023-12-15] MEDS: PHENYLEPHRINE 40 MG in SODIUM CHLORIDE 0.9% 250 ML IV ONE (13:02)
[2023-12-15] MEDS: PAPAVERINE 360 MG in SODIUM CHLORIDE 0.9% 90 ML IV ONE (13:02)
[2023-12-15] MEDS: PROTAMINE SULFATE 250 MG in EMPTY BAG 1 BAG IV ONE (13:03)
[2023-12-15] MEDS: PROTAMINE SULFATE 10 MG/ML 25 ML VIAL IV ONE (13:03)
[2023-12-15] MEDS: TRANEXAMIC ACID 2,000 MG in SODIUM CHLORIDE 0.9% 80 ML IV ONE ×2 (13:03→13:04)
[2023-12-15] MEDS: SODIUM BICARB 8.4% 50 ML SYR (1 MEQ/ML) IV ONE (13:03)
[2023-12-15] MEDS: ELECTROLYTE-A SOLUTION 1,000 ML with POTASSIUM CHLORIDE 40 MEQ, MAGNESIUM SULFATE 16 ME... IV ONE (13:04)
[2023-12-15] MEDS: ELECTROLYTE-A SOLUTION 1,000 ML with POTASSIUM CHLORIDE 100 MEQ, MAGNESIUM SULFATE 16 M... IV ONE (13:04)
[2023-12-15] MEDS: bisacodyL 10 MG SUPP RECTAL PRN (16:30)
[2023-12-15 16:40] LABS: Glucose,Whole Blood 106 mg/dL (70-110)
[2023-12-15] MEDS: TAMSULOSIN 0.4 MG CAP.ER.24H PO SCH (17:53)
[2023-12-15 20:01] LABS: Glucose,Whole Blood 99 mg/dL (70-110)
[2023-12-16 06:07] LABS: Glucose,Whole Blood 99 mg/dL (70-110)
--- NOTE | 2023-12-16 09:18 | XR ---
EXAMINATION TYPE: XR chest 2V DATE OF EXAM: 12/16/2023 COMPARISON: 12/15/2023 HISTORY: 68 year-old male post cardiac surgery TECHNIQUE: PA and lateral views FINDINGS: Heart borderline enlarged. Mild interstitial density shows slight improvement. Some patchy lingular o pacity and trace left pleural effusion remains. The previous trace right apical pneumothorax no longe r seen. IMPRESSION: 1. The previous trace right apical pneumothorax is no longer seen. 2. There may be residual mild vascular congestion, improving from prior. 3. Some residual patchy atelectasis at the left base. 4. Trace pleural effusions remain.
[2023-12-16 10:12] LABS: HGB 10.1 gm/dL (13.0-17.5); MCH 30.9 pg (25.0-35.0); MCHC 33.7 g/dL (31.0-37.0); MCV 91.5 fL (80.0-100.0); Mean Platelet Volume 9.6; Platelet Count 147 k/uL (150-450); RBC 3.28 m/uL (4.30-5.90); RDW 13.1 % (11.5-15.5); WBC 8.6 k/uL (3.8-10.6)
[2023-12-16 10:24] LABS: African American GFR (CKD) >90 (>60 ml/min/1.73 sqM); Anion Gap 8 mmol/L; Blood Urea Nitrogen 21 mg/dL (9-20); Calcium 8.9 mg/dL (8.4-10.2); Carbon Dioxide 24 mmol/L (22-30); Chloride 106 mmol/L (98-107); Glucose 107 mg/dL (74-99); Non-African American GFR(CKD) 82 (>60 ml/min/1.73 sqM); Sodium 138 mmol/L (137-145)
--- NOTE | 2023-12-16 11:53 | P.PN ---
Subjective Progress Note Date: 12/16/23 Principal diagnosis: Triple-vessel coronary artery disease, left main disease, unstable angina. Known history of carotid artery stenosis being followed outpatient by Dr. Quiroz, hypertension, hyperlipidemia, osteoarthritis, previous tobacco dependence POD#4 off pump coronary artery bypass grafting x 2, left internal thoracic artery (in-situ) to left anterior descending coronary artery, left radial artery from aorta to obtuse marginal artery, left atrial appendage ligation using #35mm AtriClip, endoscopic left radial artery harvest, trans-esophageal echo Postoperative acute blood loss anemia and thrombocytopenia, expected given hemodilution The patient was seen and examined in follow-up today December 16, 2023 at his bedside on the third floor cardiac stepdown unit. He currently just got back to his room from ambulating in the cardiac stepdown unit hallway and tolerated well. Denies any complaints of pain or shortness of breath at this time. Remote telemetry is showing sinus tachycardia heart rate 114 bpm. Oxygen saturations are 100% on room air and he is achieving 2000 mL on his incentive spirometry with encouragement. Laboratory and chest x-ray results reviewed. Discharge planning is in place. Objective - Vital Signs Vital signs: Vital Signs Temp 98 F 12/16/23 08:00 Pulse 100 12/16/23 09:33 Resp 18 12/16/23 08:00 BP 115/65 12/16/23 08:00 Pulse Ox 97 12/16/23 08:00 FiO2 50 12/12/23 16:14 Intake & Output 12/15/23 12/16/23 12/16/23 18:59 06:59 18:59 Intake Total 486 550 240 Output Total 2225 2006 [id number] 40 Weight 103 kg 99 kg Intake: IV 10 10 Invasive Line 2 10 10 Oral 476 540 240 Output: Urine 2225 1600 200 Straight 1125 Post Void Residual 407 Other: Voiding Method Urinal Urinal Urinal # Voids 1 3 1 ABP, PAP, CO, CI - Last Documented Arterial Blood Pressure 129/64 Pulmonary Artery Pressure 12/10 Cardiac Output 6.8 Cardiac Index 3.2 - Exam CONSTITUTIONAL: Appears comfortable, cooperative, no acute distress RESPIRATORY: Lungs sounds diminished bilaterally. Respirations symmetrical, nonlabored. Currently on room air with oxygen saturation 100%. Able to achieve 2000 mL on incentive spirometry. Strong cough. CARDIOVASCULAR: S1, S2 present. Regular rate and rhythm, sinus rhythm to sinus tach on telemetry. Sternum stable. Palpable peripheral pulses bilaterally. No edema present. No calf pain or tenderness noted. Heart hugger in place with patient demonstrating appropriate use. Antiembolism stockings, SCDs present. GASTROINTESTINAL: Abdomen soft, nontender, nondistended. Active bowel sounds present 4 quadrants. Tolerating diet. Positive flatus. GENITOURINARY: Continues to void. Urine output 1.6 L in the last 8 hours. INTEGUMENTARY: Skin is warm and dry, no clubbing or cyanosis present. Midline sternal incision well approximated and covered with dry intact dressing. Left radial artery harvest site well approximated without redness NEUROLOGIC: Cranial nerves II through XII intact. No focal deficits. MUSKULOSKELETAL: Able to move all extremities, strength equal bilaterally, gait normal. PSYCHIATRIC: Alert and oriented to person place and time, appropriate affect, intact judgment and insight - Allied health notes Allied health notes reviewed: nursing - Labs CBC & Chem 7: 12/16/23 08:52 12/16/23 08:52 Labs: Abnormal Lab Results - Last 24 Hours (Table) 12/16/23 12/16/23 Range/Units 08:52 08:52 RBC 3.28 L (4.30-5.90) m/uL Hgb 10.1 L (13.0-17.5) gm/dL Hct 30.0 L (39.0-53.0) % Plt Count 147 L (150-450) k/uL BUN 21 H (9-20) mg/dL Glucose 107 H (74-99) mg/dL - Imaging and Cardiology Chest x-ray: report reviewed, image reviewed Assessment and Plan Assessment: Triple-vessel coronary artery disease, left main disease, unstable angina, status post 2 vessel off pump CABG Known history of carotid artery stenosis being followed outpatient by Dr. Quiroz, remains asymptomatic Hypertension Hyperlipidemia, treated, cholesterol 164, LDL 85 Osteoarthritis Previous tobacco dependence, preoperative FEV1 105% of predicted Postoperative acute blood loss anemia and thrombocytopenia, expected Plan: Continue to maximize medical therapy with aspirin, Plavix, statin, and beta- poppy. Will increase metoprolol tartrate to 75 mg p.o. twice daily. Continue oral calcium channel poppy for radial artery spasm prophylaxis. Amlodipine 5 mg p.o. daily. Encourage incentive spirometry use 10 times every hour while awake. Bronchodilators per pulmonology. Increase activity, ambulate as tolerated. PT/OT/cardiac rehab following. Will monitor daily labs and chest x-rays. Electrolyte replacement per protocol. GI/DVT prophylaxis. Pain control per current medication regimen. Insulin management per internal medicine, patient is not diabetic, hemoglobin A1c 5.4%. Continue to record strict accurate intake and output. Daily weights. Discharge planning in progress, anticipate discharge to home with home care in the next 24 hours. More recommendations to follow based on patient's clinical course. Time with Patient: Greater than 30
[2023-12-16] MEDS: METOPROLOL TARTRATE 25 MG TAB PO STA (12:00)
[2023-12-16 12:09] LABS: Glucose,Whole Blood 102 mg/dL (70-110)
--- NOTE | 2023-12-16 12:38 | P.PN ---
Subjective Progress Note Date: 12/16/23 Principal diagnosis: Coronary disease. This is a very pleasant 68-year-old male patient with a known history of hypertension, hyperlipidemia, osteoarthritis, carotid artery stenosis, former smoker of 20 years however quit back in 1995. He had not been on any inhalers or pulmonary medications in the outpatient setting. He had been quite active riding his bike frequently up to 10 miles at a time. He had presented to the emergency room on 12/06/2023 with complaints of chest pain and shortness of breath. Catheterization on 12/07/2023 revealed one-vessel coronary artery disea se with severe left main stenosis up to 80 to 90%. The plan is for coronary artery bypass grafting on 12/12/2023. He is currently sitting up in a chair. Awake and alert in no acute distress. Maintaining good O2 saturations in the 90s on room air. He has a heparin drip as well as a nitroglycerin drip at 2.5 mcg/min. He denies any chest pain. No worsening shortness of breath, cough or congestion. He is working well with the incentive spirometer. Count 7.2. Hemoglobin 14.9. Platelets 176. Sodium 143. Potassium 4.3. Bicarb 24. BUN 18. Creatinine 0.87. Chest x-ray revealed no acute cardiopulmonary process. CT scan of the chest revealed no acute pulmonary process. FEV1 value 105% of predicted. Patient was reevaluated today on 12/10/2023, patient is doing well, he is scheduled to undergo bypass surgery on Tuesday. Presently he is asymptomatic, no cough no wheezing no shortness of breath no chest pain, practicing with incentive spirometry, ambulating in the hallway, denies any specific complaints.WBC count is 6.2 hemoglobin 15.1 heparin is therapeutic and PTT is 95.9 basic metabolic profile is normal renal profile is normal Reevaluate today on 12/11/2023, patient is still scheduled for CABG tomorrow, doing well asymptomatic doing great with incentive spirometry, has no active pulmonary symptoms, patient is cleared for surgery and considered low operative risk. Family is at bedside with the patient today. Progress note dated December 12, 2023. 68-year-old male, postop day #0, status post two-vessel bypass surgery. The surgery was done off-pump. He had a YANES to LAD bypass, and HIPOLITO to OM1. The patient is now back in the intensive care unit, room 251. Current ventilator settings include volume assist-control rate 16, tidal volume 450, FiO2 50%, and PEEP of 8. On settings of 100%, and a rate of 12, his gases were pO2 greater than 400, pCO2 52, pH is 7.28. His cardiac output is 6.6. His index is 3.1. He is getting propofol at 20 mcg/kg/min, insulin drip at 1 unit an hour, lactated Ringer's at 50 cc an hour, nitroglycerin at 5 mcg/min, and dexmedetomi dine at 0.7 mcg/kg/h. Current labs include a white count 15.8, hemoglobin 12.1, hematocrit 34.6, and platelet count 116,000. Sodium 140, potassium 3.9, chlorides 112, CO2 21, BUN 14, and creatinine 0.73. Glucose is 137. Chest x- ray shows a well-positioned endotracheal tube, a PA catheter, and relatively clear lung almanza. Progress note dated December 13, 2023. 68-year-old male, postop day #1, status post two-vessel bypass surgery. The patient is seen today in room 251. The patient is currently on room air. The patient is getting lactated Ringer's at 50 cc an hour. This was an off-pump t wo-vessel bypass surgery. Clinically, the patient is sore in the surgical area, but other than that, seem to be doing relatively well. He does continue to work on his incentive spirometer. Current laboratory data includes a white count 13.6, hemoglobin 11.9, hematocrit 35.4, and a platelet count of 134,000. Sodium 137, potassium 3.7, chlorides 108, CO2 23, BUN 14, and creatinine 0.73. Glucose is 122. Liver function test were normal. The patient's albumin was 3.8. Urine is negative. Chest x-ray shows some postsurgical changes, and some basilar atelectasis, with a small left-sided pleural effusion. Progress note dated December 14, 2023. 68-year-old male postop day #2, status post two-vessel bypass surgery. The patient is seen today in room 251. He remains on room air. He is getting saline at 20 cc an hour. This morning, he has some nausea, and he feels queasy, but other than that, he is doing pretty well. Current labs are good white count 12, hemoglobin 10.6, hematocrit 38.6 and platelet count 93,000. Sodium 132, potassium 3.8, chlorides 103, CO2 24, anion gap normal, BUN 14, and creatinine 0.67. Glucose is 131. Albumin 3.6. Chest x-ray shows some postsurgical change s, and some mild fluid overload. Progress note dated December 15, 2023. 68-year-old male postop day #3, status post two-vessel bypass surgery. The patient was seen in room 251. He is currently on room air. No IV fluids. The patient appears to be doing relatively well. Current labs include a white count 11.1, hemoglobin 10.4, hematocrit 30.3, and a platelet count of 100,000. Sodium 130, potassium 4, chlorides 101, CO2 22, anion gap 7, BUN 17, creatinine 0.72. Glucose is 109. Albumin is 3.5. Chest x-ray shows improved aeration bilaterally. Small patchy infiltrates are noted, likely atelectasis. Small pleural effusion. There may be a small right 1 cm right apical pneumothorax. Progress note dated December 16, 2023. 68-year-old male, postop day #4, status post two-vessel bypass surgery. The patient is seen today in room 360. He is on room air. He is not receiving any IV fluids. He is hoping to be discharged home today possibly. He denies any chest pain or chest discomfort. He denies any shortness of breath, cough, wheezing, chest tightness, or phlegm production. White count is 8.6, hemoglobin 10.1, hematocrit 30, platelet count 147,000. Sodium 138, potassium 4, chlorides 106, CO2 24, BUN 21, creatinine 0.95. Glucose is 102. Calcium is 8.9. Chest x-ray does not reveal a trace right apical pneumothorax which was present previously. In addition, the baby send mild vascular congestion. Objective - Vital Signs Vital signs: Vital Signs Temp 98 F 12/16/23 08:00 Pulse 100 12/16/23 12:13 Resp 16 12/16/23 11:49 BP 119/64 12/16/23 11:49 Pulse Ox 98 12/16/23 11:49 FiO2 50 12/12/23 16:14 Intake & Output 12/15/23 12/16/23 12/16/23 18:59 06:59 18:59 Intake Total 486 550 240 Output Total 2224 2006 200 Balance -1739 -1457 40 Weight 103 kg 99 kg Intake: IV 10 10 Invasive Line 2 10 10 Oral 476 540 240 Output: Urine 222 1600 200 Straight 1125 Post Void Residual 407 Other: Voiding Method Urinal Urinal Urinal # Voids 1 3 1 ABP, PAP, CO, CI - Last Documented Arterial Blood Pressure 129/64 Pulmonary Artery Pressure 12/10 Cardiac Output 6.8 Cardiac Index 3.2 - Exam No acute distress, extubated, currently on room air. No respiratory distress or difficulty. HEENT examination is grossly unremarkable. Neck supple. Full range of motion. No adenopathy thyromegaly or neck vein distention. Cardiovascular examination reveals regular rhythm rate. S1-S2 normal. No S3 or S4. No discernible murmur noted. Heart rate 90 bpm. Lungs reveal clear breath sounds. Breath sounds are equal bilaterally. No adventitious lung sounds including wheezes rhonchi or crackles. Saturations are 98 %. Abdomen soft without bowel sounds. No masses. Extremities are intact. No cyanosis clubbing or edema. Skin is without rash or lesion. Neurologic examination is brief but nonfocal. - Labs CBC & Chem 7: 12/16/23 08:52 12/16/23 08:52 Labs: Abnormal Lab Results - Last 24 Hours (Table) 12/16/23 12/16/23 Range/Units 08:52 08:52 RBC 3.28 L (4.30-5.90) m/uL Hgb 10.1 L (13.0-17.5) gm/dL Hct 30.0 L (39.0-53.0) % Plt Count 147 L (150-450) k/uL BUN 21 H (9-20) mg/dL Glucose 107 H (74-99) mg/dL Assessment and Plan Assessment: Postop day #4, S/P two-vessel off-pump bypass, YANES to LAD, HIPOLITO to OM1. Routine postoperative ventilator management, with extubation on December 12, 2023. History of hypertension. History of hyperlipidemia. History of osteoarthritis. Remote history of tobacco use, quit 1995. Carotid artery stenosis, asymptomatic. Plan: Plan dated December 12, 2023. The patient is seen today in room 251. He is postop day #0, status post two- vessel off-pump bypass. We have already made some ventilator changes, increasing the rate from 12-16, and dropping the FiO2 from 100% down to 50%. The patient continues on nitroglycerin, dexmedetomidine, insulin, lactated Ringer's, and propofol. Cardiac output was 6.6. Index was 3.1. We will continue to follow and make recommendations along the way. Plan dated December 13, 2023. The patient actually did very well yesterday, and had excellent weaning parameters, was awake and alert, with a good cuff leak, and a very low rapid shallow breathing index. For that reason, the patient was extubated. Currently he is on room air. He is getting lactated Ringer's at 50 cc an hour. His chest x-ray shows postsurgical changes. We will continue to follow make recommendations along the way. Labs, x-rays, and all medications are reviewed. Plan dated December 14, 2023. The patient is currently on room air. He is seen in room 251. He is getting s gayla at 20 cc an hour. The patient is a bit nauseated, and feeling a bit queasy. Denies any chest pain or chest discomfort. No shortness of breath, cough, wheezing, chest tightness, or phlegm production. Labs, x-rays, medications are reviewed. We encourage him to continue to use the incentive spirometer. Additional recommendations and suggestions are forthcoming. Plan dated December 15, 2023. The patient appears to be doing relatively well. He may be moved out of the ICU later today. He is on room air. No IV fluids. Today is postop day #3. Labs, x-rays, and medications are reviewed. Patient's chest x-ray is reviewed. The patient's chest x-ray stable. Respiratory status is stable. He denies any shortness of breath. We will continue to follow make recommendations along the way. Prognosis is guarded. We recommend continued use of the incentive spirometer. Plan dated December 16, 2023. The patient is potentially going to be discharged home later today. He should take the incentive spirometer with him, and use it while awake. He should be encouraged to continue to deep breathe, cough, and clear secretions. Labs, x- rays, and medications are reviewed. The patient is overall prognosis appears to be very good. He is postop day #4, status post two-vessel bypass grafting. We will continue to follow, should he not be discharged. Follow-up in our office, with the screening nurse who did his consultation. Time with Patient: Less than 30
--- NOTE | 2023-12-16 12:57 | P.PN ---
Subjective Progress Note Date: 12/16/23 Hospital Course: Patient is a very pleasant 68-year-old male with a past medical history of car otid artery stenosis with right internal carotid artery of 70% stenosis and left internal carotid 50 to 60% stenosed, hyperlipidemia, osteoarthritis, and former nicotine dependence quitting smoking in 1995. He presented to the emergency department with a chief complaint of chest pain, dizziness, and palpitations. Patient reports chest pain has been ongoing x 1 week accompanied by significant dizziness/lightheadedness, palpitations, and shortness of breath. Patient describes pain to chest as a tightening sensation and denies radiation of pain. He reports all of these symptoms are exacerbated with exertion. He denies experiencing any headache, changes in vision or hearing, cough or congestion, nausea or vomiting, diaphoresis, or experiencing any numbness/tingling/weakness/swelling in his extremities. Patient reports his carotid artery stenosis was recently diagnosed and he was supposed to follow-up with vascular surgeon to schedule carotid endarterectomy, his at bedside reports that she called the office today secondary to discovering her 's new complaints of chest pain, dizziness/lightheadedness, palpitations, and exertional dyspnea and was told by the PA at the office to go to the emergency department immediately as Dr. Quiroz is currently out of town and he will need to be evaluated by one of his associates. He underwent evaluation in the emergency department. Vital signs upon arrival show blood pressure 171/94, heart rate 95, respiratory rate 20, temp 98.1 F, and SpO2 of 99% on room air. EKG completed showing normal sinus rhythm 87 bpm with T wave inversion in lateral lead aVL and mild ST depression in lead II. Chest x-ray completed negative for acute cardiopulmonary process. Labs completed and reviewed. CBC unremarkable. Coagulation profile normal findings. BMP revealing mild hyperchloremia with chloride of 108 otherwise normal findings. Blood glucose was 113. Liver profile unremarkable. Magnesium slightly low at 1.7. Troponin negative at less than 0.012. Patient was admitted under our services with consultation to cardiology and vascular surgery. Heart score 5. Troponins trended overnight all negative at less than 0.012 x 3 draws. Cardiology consulted, took patient for cardiac stress test which is reported to be abnormal, with poor exercise tolerance and severe EKG changes. Echocardiogram demonstrates ejection fraction of 50 to 55% with mildly increased septal wall thickness, normal RVSP; stress echo did demonstrate wall motion abnormality in the distribution of the LAD. Left heart cath showed significant 80 to 90% left main disease. Cardiothoracic surgery consulted. Patient underwent CABG x 2. Overall improving. Subjective: Patient seen and examined at bedside. No acute events overnight. No new complaints. Pertinent positives and negatives as discussed above, a complete review of systems was performed and all other systems are negative. Vitals Signs Reviewed. General: Nontoxic, no distress, appears at stated age Derm: Warm, dry, dressing clean, dry, intact Head: Atraumatic, normocephalic, symmetric Eyes: EOMI, no lid lag, anicteric sclera Mouth: No lip lesion, mucus membranes moist Cardiovascular: S1S2 reg, no murmur Lungs: CTA bilateral, no rhonchi, no rales, no accessory muscle use Abdominal: Soft, nontender to palpation, no guarding, no appreciable organomegaly Ext: No gross muscle atrophy, no edema, no contractures Neuro: CN II-XI grossly intact, no focal neuro deficits Psych: Alert, oriented, appropriate affect Data Reviewed Today: Pertinent Labs: WBC 8.6, hemoglobin 10.1, platelet 147, creatinine 0.95, blood sugars range between 99-1 07 Imaging: Chest x-ray independently interpreted, improving vascular congestion, apical pneumothorax resolved. Assessment and Plan: CAD status post CABG Small apical pneumothorax, currently asymptomatic, resolved Reactive leukocytosis, anticipated outcome of surgery, resolved Blood loss anemia, anticipated outcome of surgery Unstable angina present on admission Asymptomatic carotid artery stenosis Hypertension Dyslipidemia Hyperglycemia, stress-induced, resolved Urinary retention resolved Mild hyponatremia, resolved Mild thrombocytopenia, no active bleeding - Patient currently on aspirin 325, amlodipine 5, atorvastatin 80, Plavix 75, metoprolol increased to 75 twice daily -Cardiothoracic surgery note reviewed, possible discharge in the next 24 hours -Neurology and cardiology following -Pain control with oral Tylenol as needed, oral oxycodone as needed, monitor for sedation -Pantoprazole 40 daily -continue on sliding scale insulin, monitor for hypoglycemia, no need for antidiabetic medications at the time of discharge -Vascular surgery recommending outpatient follow-up. -Continue on Flomax 0.4 daily DVT ppx: Subcu heparin Thank you for allowing us to participate in the care of this pleasant patient. Do not hesitate to contact us with questions. Someone can be reached from the [facility] hospitalist group all hours of the day at [phone] or via perfect serve. Objective - Vital Signs Vital signs: Vital Signs Temp 98 F 12/16/23 08:00 Pulse 100 12/16/23 12:13 Resp 16 12/16/23 11:49 BP 119/64 12/16/23 11:49 Pulse Ox 98 12/16/23 11:49 FiO2 50 12/12/23 16:14 Intake & Output 12/15/23 12/16/23 12/16/23 18:59 06:59 18:59 Intake Total 486 550 240 Output Total 222 2007 200 Balance -5909 -0137 40 Weight 103 kg 99 kg Intake: IV 10 10 Invasive Line 2 10 10 Oral 476 540 240 Output: Urine 222 1600 200 Straight 1125 Post Void Residual 407 Other: Voiding Method Urinal Urinal Urinal # Voids 1 3 1 ABP, PAP, CO, CI - Last Documented Arterial Blood Pressure 129/64 Pulmonary Artery Pressure 12/10 Cardiac Output 6.8 Cardiac Index 3.2 - Labs CBC & Chem 7: 12/16/23 08:52 12/16/23 08:52 Labs: Abnormal Lab Results - Last 24 Hours (Table) 12/16/23 12/16/23 Range/Units 08:52 08:52 RBC 3.28 L (4.30-5.90) m/uL Hgb 10.1 L (13.0-17.5) gm/dL Hct 30.0 L (39.0-53.0) % Plt Count 147 L (150-450) k/uL BUN 21 H (9-20) mg/dL Glucose 107 H (74-99) mg/dL
--- NOTE | 2023-12-16 14:55 | P.DS ---
Providers Date of admission: 12/07/23 17:50 Expected date of discharge: 12/16/23 Attending physician: Micheal Goldstein MD Consults: 12/06/23 14:14 Consult Physician Urgent Consulting Provider: [facility] Consult Reason/Comments: exertional dyspnea, chest pain Do you want consulting provider notified?: Yes 12/09/23 09:10 Consult Physician Routine Consulting Provider: Nicholas Trevino Consult Reason/Comments: preop cabg Do you want consulting provider notified?: Already Contacted 12/11/23 08:49 Consult to Anesthesia Routine Consulting Provider: Anesthesia,Services Consult Reason/Comments: Cardiac Surgery Pre-Op 12/12/23 11:47 Consult Physician Routine Consulting Provider: Missael Conley Consult Reason/Comments: med mgmt Do you want consulting provider notified?: Already Contacted Primary care physician: Christian Fournier [facility] Course: FINAL DIAGNOSIS: Triple-vessel coronary artery disease, left main disease, unstable angina, status post 2 vessel off pump CABG Known history of carotid artery stenosis being followed outpatient by Dr. Quiroz, remains asymptomatic Hypertension Hyperlipidemia, treated, cholesterol 164, LDL 85 Osteoarthritis Previous tobacco dependence, preoperative FEV1 105% of predicted Postoperative acute blood loss anemia and thrombocytopenia, expected PRINCIPAL PROCEDURE: 1. Off pump coronary artery bypass grafting x 2. Left internal thoracic artery (in-situ) to left anterior descending coronary artery. Left radial artery from aorta to obtuse marginal artery. 2. Left atrial appendage ligation using #35mm AtriClip 3. Endoscopic left radial artery harvest 4. Intraoperative transesophageal echocardiogram HISTORY OF PRESENT ILLNESS: This is a 68-year-old gentleman who follows on outpatient basis with Dr. Fournier for his primary care. He presented to the emergency department here at [facility] on December 06, 2023 with complaints of exertional shortness of breath and chest pain, relieved with rest which had been going on for approximately a week prior to his presentation. While in the emergency department a checks x-ray was completed which revealed no acute cardiopulmonary process. His twelve-lead EKG demonstrated normal sinus rhythm. The patient's laboratory results showed his troponins to be negative. Subsequently due to the patient's presenting symptoms a transthoracic 2D echocardiogram was completed which demonstrated a normal left ventricular systolic function with an ejection fraction of 50 to 55%, trace mitral valve regurgitation, and mild tricuspid valve regurgitation. A stress echocardiogram was also completed which showed to be abnormal demonstrating exercise-induced wall motion abnormality. Due to the findings on the stress test the patient was recommended to undergo a cardiac catheterization which was completed by Dr. William Barroso and demonstrated triple-vessel coronary artery disease with left main disease. Subsequently a consult was placed to Dr. Goldstein from cardiothoracic surgery for further evaluation and treatment recommendations including myocardial vascularization surgery. Dr. Goldstein met with the patient and the patient's , treatment options were discussed including myocardial revascularization surgery. Risks and benefits of surgery including the STS risk or were discussed, a clinical frailty score was calculated and knowing and understanding the risks and benefits of surgery the patient wished to proceed with the surgical option. HOSPITAL COURSE: After obtaining consent, the patient was brought to the preoperative area on 12/12/23, prepared in the usual fashion, and subsequently taken to the operating room where Dr. Goldstein performed 2 vessel CABG. Upon completion of surgery the patient was transferred to the cardiovascular intensive care unit where he was recovered and monitored hemodynamically. He was extubated, all lines, tubes, and drips were discontinued when appropriate. Transfer orders were placed for 3 S. cardiac stepdown unit and he was transferred to 3 S. cardiac stepdown unit for further monitoring and rehabilitation. His oxygen was titrated down, he continued to work with physical and occupational therapy, he was tolerating oral diet, his pain was controlled, and he was ready to be discharged to home with [facility] [place]. He received written and verbal instruction regarding his medications, activity restrictions, signs and symptoms requiring physician notification, and follow-up appointments. Patient Condition at Discharge: Stable Plan - Discharge Summary New Discharge Prescriptions: New Atorvastatin [Lipitor] 80 mg PO DAILY #30 tab Metoprolol Tartrate [Lopressor] 75 mg PO BID #90 tab Tamsulosin [Flomax] 0.4 mg PO PC-SUPPER #30 cap amLODIPine [Norvasc] 5 mg PO DAILY #30 tab Clopidogrel [Plavix] 75 mg PO DAILY #30 tab Pantoprazole [Protonix] 40 mg PO AC-BRKFST #30 tab Sennosides-Docusate Sodium [Senokot-S] 2 each PO HS #14 tab Acetaminophen Tab [Tylenol] 650 mg PO Q4HR PRN tab PRN Reason: Fever And/ Or Pain Continue Aspirin 325 mg PO DAILY traZODone HCL [Desyrel] 50 mg PO HS Cetirizine HCl [Zyrtec] 10 mg PO DAILY PRN PRN Reason: Allergy Symptoms Discontinued Rosuvastatin [Crestor] 10 mg PO DAILY Discharge Medication List Aspirin 325 mg PO DAILY 01/08/21 [History] Cetirizine HCl [Zyrtec] 10 mg PO DAILY PRN 12/06/23 [History] traZODone HCL [Desyrel] 50 mg PO HS 12/06/23 [History] Acetaminophen Tab [Tylenol] 650 mg PO Q4HR PRN tab 12/16/23 [Rx] Atorvastatin [Lipitor] 80 mg PO DAILY #30 tab 12/16/23 [Rx] Clopidogrel [Plavix] 75 mg PO DAILY #30 tab 12/16/23 [Rx] Metoprolol Tartrate [Lopressor] 75 mg PO BID #90 tab 12/16/23 [Rx] Pantoprazole [Protonix] 40 mg PO AC-BRKFST #30 tab 12/16/23 [Rx] Sennosides-Docusate Sodium [Senokot-S] 2 each PO HS #14 tab 12/16/23 [Rx] Tamsulosin [Flomax] 0.4 mg PO PC-SUPPER #30 cap 12/16/23 [Rx] amLODIPine [Norvasc] 5 mg PO DAILY #30 tab 12/16/23 [Rx] Follow up Appointment(s)/Referral(s): Nicholas Trevino MD [STAFF PHYSICIAN] - 01/04/24 1:30 pm [facility], [NON-STAFF] - 1-2 Days Christian Fournier MD [Primary Care Provider] - 1 Week Basilio Spain NPC [Nurse Practitioner] - 12/22/23 1:00 pm Micheal Goldstein MD [STAFF PHYSICIAN] - 01/02/24 2:30 pm Joaquín Barroso MD [STAFF PHYSICIAN] - 01/02/24 4:00 pm Ambulatory/Diagnostic Orders: Complete Blood Count w/diff [LAB.AMB] Time Frame: 12/19/23, Facility: [facility], Location: Laboratory [facility] Comprehensive Metabolic Panel [LAB.AMB] Time Frame: 12/19/23, Facility: [facility], Location: Laboratory [facility] Activity/Diet/Wound Care/Special Instructions: DISCHARGE INSTRUCTIONS: 1. No driving for 4 weeks, or until physician gives their ok. 2. The patient should sleep in their own bed, no medical bed needed. 3. Stairs are not an issue. If the bedroom is upstairs, it is advised that the patient go up at night and down in the morning for the first week. Go slowly, using handrail and take 1 step at a time. 4. AB hose are to be worn for 30 days post surgery or until physician discontinues. 5. Heart hugger is to be worn 100% of the time until physician discontinues.(except when showering) 6. No lifting, pushing, or pulling more than 10 pounds for 12 weeks. The physician will advise of any restriction changes. 7. The patient is expected to continue the prescribed walking program. 8. Continue pain control per as needed orders. 9. Continue with incentive spirometry and splinting/heart hugger until otherwise directed by the physician. 10. Must shower daily using liquid antibacterial soap 11. Routine sternal incision care. No powders, lotions, ointments on incisions. No dressings are necessary on incisions unless they are draining. Dermabond tape is to remain on sternal incision until surgeon follow-up. 12. Please call surgeon/SOLUTIONS ARCHITECT CONSULTANT for temp greater than 101 F or purulent drainage from incisions. 13. You should weigh yourself daily, record and bring log with you to follow up appointments. 14. All prescriptions given by surgeon for 30 days. Refills need to be filled through shuttle fixer/primary care physician. 15. A Red armband has been placed on the patient. It should be worn for 30 days post discharge from surgery and will be removed by the cardiac surgeons. If an ER visit is necessary, please make sure the number on the Red armband is called before going to ER. 16. You have been referred to and are expected to begin Cardiac Rehab in approximately 4-6 weeks. 17. Quitting smoking is the most important step you can take to improve your health. For additional information and assistance to quit smoking, please call the [place] tobacco quit line (4-061-EDVI-NOW/ ) or online: [email or web address] HOME HEALTH SERVICES TO PROVIDE: RN SKILLED HOME CARE SERVICES FOR POST-OP SURGICAL PATIENTS WITH THE FOLLOWING: Coronary Artery Bypass Surgery (CABG), Mitral Valve Replacement/Repair ( MVR), Aortic Valve Replacement/Repair (AVR) RN TO CONTINUE EDUCATION FROM ``ROAD TO A HEALTH HEART PATIENT EDUCATION MANUAL (GIVEN TO PATIENT IN THE HOSPITAL) MEDICATION RECONCILIATION WITH EDUCATION NEEDED ON FIRST HOME VISIT EMPHASIZE IMPORTANCE OF WEARING BREAST SUPPORT/HEART HUGGER ENCOURAGE USE OF INCENTIVE SPIROMETER 10 X EVERY HOUR WHILE AWAKE ENCOURAGE UTILIZATION OF LOWER EXTREMITY COMPRESSION STOCKINGS/AB HOSE and ELEVATE LEGS ABOVE LEVEL OF HEART WHILE AT REST. ENCOURAGE AMBULATION 3-5x/day INCREASING TOLERATES, WHILE AVOIDING EXTREMES IN TEMPERATURE FREQUENCY: RN TO OPEN THE PATIENT WITHIN 24 HOURS OF DISCHARGE FROM THE HOSPITAL WITH TELEHEALTH INSTALLED AT [facility] [place] TO VISIT 2-3 X A WEEK FOR 4 WEEKS ESTABLISHED BY PATIENT NEEDS. LABORATORY: CBC, CMP TO BE DRAWN ON THE THIRD DAY HOME, (RAN STAT) FAX RESULTS TO [phone]. TELEHEALTH PARAMETERS: WEIGHT: NOTIFY MD OF WEIGHT GAIN OF 2 LBS IN 24 HOURS OR 5 LBS IN ONE WEEK HR: NOTIFY MD OF HR <55 BPM OR HR>100 BPM BP: NOTIFY MD IF BP <90/55 OR BP>140/100 O2 SAT: NOTIFY MD IF PO2<93% ON ROOM AIR SEND TELEHEALTH REPORT TO ELECTRONIC COMPONENTS ASSEMBLER AND CARDIOVASCULAR SURGEON THE FIRST WEEK OF CARE AND THEN BI-WEEKLY. PLEASE ADDITIONALLY COMMUNICATE ANY ABNORMALS AND NEW FINDINGS TO THE SURGEONS OFFICE. Discharge Disposition: HOME SELF-CARE
[2023-12-16 16:24] VITALS: BP 111/63; PULSE 87; RESP 18; TEMP 97.8
[2023-12-16] MEDS ORDERED: METOPROLOL TARTRATE 50 MG TAB PO SCH (21:00)
--- NOTE | 2023-12-16 21:54 | PN ---
PROGRESS NOTE SUBJECTIVE: Gasper is a 68-year-old gentleman who is admitted to hospital with chest pain, had abnormal stress test and underwent cardiac catheterization that revealed severe left main stenosis for which he underwent bypass surgery by Dr. Goldstein. Today is postop day #4. His bypass surgery was off form and involved YANES to LAD and radial left radial artery graft to the OM and he also had an AtriClip placement for left atrial appendage ligation. He has done exceptionally well since surgery and is ready to be discharged home. OBJECTIVE: GENERAL: Comfortable at rest. VITAL SIGNS: Stable. NECK: There is no jugular venous distention. CHEST: Reveals good air entry bilaterally. HEART: Reveals first and second heart sounds. No gallop. No murmur. EXTREMITIES: Did not reveal any edema. Peripheral pulses are felt. The patient is currently on, 1. Plavix. 2. Lopressor 50 b.i.d. 3. Atorvastatin. 4. Aspirin. 5. Norvasc. He will be followed up in my office in 4 weeks' time. MMODL / IJN: [id number] /
== END 2023-12-16 16:25 | disposition home health service (06) | DRG 234 ==
LOC: EC 10:59 → 6NMEDSUR 14:25 → OBSVTOIN 12-07 17:50 → 3SCARD 12-08 14:11 → 2SICU 12-12 07:05 → 3SCARD 12-15 10:51
PROVIDERS: ADMIT Thoracic Surgery (Cardiothoracic Vascular Surgery); ATTEND Thoracic Surgery (Cardiothoracic Vascular Surgery)
PROC: 4A023N7 Measurement of Cardiac Sampling and Pressure, Left Heart, Percutaneous Approach (ICD-10-PCS; 2023-12-08)
PROC: B2111ZZ Fluoroscopy of Multiple Coronary Arteries using Low Osmolar Contrast (ICD-10-PCS; 2023-12-08)
PROC: 02100ZC Bypass Coronary Artery, One Artery from Thoracic Artery, Open Approach (ICD-10-PCS; principal; 2023-12-12 08:00)
PROC: 03BC4ZZ Excision of Left Radial Artery, Percutaneous Endoscopic Approach (ICD-10-PCS; principal; 2023-12-12 08:00)
PROC: 02100AW Bypass Coronary Artery, One Artery from Aorta with Autologous Arterial Tissue, Open Approach (ICD-10-PCS; principal; 2023-12-12 08:00)
PROC: B24BZZ4 Ultrasonography of Heart with Aorta, Transesophageal (ICD-10-PCS; principal; 2023-12-12 08:00)
PROC: 02L70CK Occlusion of Left Atrial Appendage with Extraluminal Device, Open Approach (ICD-10-PCS; principal; 2023-12-12 08:00)
PROC: 02HV33Z Insertion of Infusion Device into Superior Vena Cava, Percutaneous Approach (ICD-10-PCS; 2023-12-12 08:00)
PROC: 02HQ32Z Insertion of Monitoring Device into Right Pulmonary Artery, Percutaneous Approach (ICD-10-PCS; 2023-12-12 08:00)
DX: I25.110 Atherosclerotic heart disease of native coronary artery with unstable angina pectoris (principal); D62 Acute posthemorrhagic anemia; E87.1 Hypo-osmolality and hyponatremia; J90 Pleural effusion, not elsewhere classified; J98.11 Atelectasis; I08.1 Rheumatic disorders of both mitral and tricuspid valves; D69.6 Thrombocytopenia, unspecified; E78.5 Hyperlipidemia, unspecified; E87.70 Fluid overload, unspecified; E87.8 Other disorders of electrolyte and fluid balance, not elsewhere classified; Z87.891 Personal history of nicotine dependence; I10 Essential (primary) hypertension; I65.23 Occlusion and stenosis of bilateral carotid arteries; M19.90 Unspecified osteoarthritis, unspecified site; Z79.82 Long term (current) use of aspirin; Z79.899 Other long term (current) drug therapy; Z71.3 Dietary counseling and surveillance
CPT/HCPCS: 36415; 71045; 71046; 71250; 80048; 80053; 80061; 80074; 81003; 82330; 82805; 83036; 83735; 84439; 84443; 84484; 85025; 85027; 85520; 85610; 85730; 86850; 86891; 86900; 86901; 86920; 87070; 93005; 93306; 93351; 93454; 93922; 93970; 94002; 94150; 94640; 94760; 99285

== ENCOUNTER → 2024-01-02 | Outpatient (CLI) | payer MEDICARE ==
--- NOTE | 2024-01-02 10:04 | XR ---
EXAMINATION TYPE: XR chest 2V DATE OF EXAM: 01/02/2024 9:33 AM CLINICAL INDICATION:Male, 68 years old with history of R06.02 SOB; COMPARISON: Chest radiographs from 12/16/2023 TECHNIQUE: XR chest 2V Frontal and lateral views of the chest. FINDINGS: Lungs/Pleura: There is no evidence of pleural effusion, focal consolidation, or pneumothorax. Pulmonary vascularity: Unremarkable. Heart/mediastinum: Cardiomediastinal silhouette is unremarkable. Left atrial appendage occlusion fabián ce is present. Musculoskeletal: No acute osseous pathology. Midline sternotomy wires are noted. IMPRESSION: No acute cardiopulmonary disease/process.
== END | disposition home or self-care (01) ==
LOC: RADXRMAIN 09:10
PROVIDERS: ATTEND Thoracic Surgery (Cardiothoracic Vascular Surgery)
DX: R06.02 Shortness of breath (principal)
CPT/HCPCS: 71046

== ENCOUNTER → 2024-02-01 | Outpatient (CLI) | payer MEDICARE ==
[2024-02-01 12:44] LABS: African American GFR (CKD) >90 (>60 ml/min/1.73 sqM); Blood Urea Nitrogen 18 mg/dL (9-20); Non-African American GFR(CKD) 89 (>60 ml/min/1.73 sqM)
--- NOTE | 2024-02-01 20:09 | CT ---
EXAMINATION TYPE: CT angio abd aorta w/Runoff DATE OF EXAM: 02/01/2024 COMPARISON: CT abdomen and pelvis October 25, 2014 HISTORY: bilateral lower leg pain. Peripheral vascular disease. CT DLP: 2201.1 mGycm, Automated Exposure Control for Dose Reduction was Utilized. CONTRAST: CTA scan of the abdomen and pelvis with bilateral lower extremity runoff is performed without oral an d without and with IV Contrast, patient injected with 100 mL of Isovue 370. Three-D reconstructed idania ges are created on a independent workstation and reviewed. FINDINGS: VASCULAR: [id number] peripheral mixed plaque in the abdominal aorta. Patent bilateral single re nal arteries with stenosis near 50% at origin of the right renal artery coronal image 36. Patent gracie ac artery and SMA without significant stenosis. Patent IDANIA. No AAA. Patent iliac and femoral artery b ranches with mild plaque but no significant stenosis. Patent superficial femoral artery branches bila terally without significant plaque or stenosis. Patent popliteal artery branches without significant stenosis. There is satisfactory bifurcation and trifurcation below the knees. There is good three-ves conrad flow in the mid leg. There is good symmetric two-vessel flow in the lower legs. Extensive surgica l change to the hindfeet bilaterally is seen. Distal to this evaluation is nondiagnostic. LUNG BASES: Small left pleural effusion is partially imaged. There is associated left basilar compre ssive atelectasis. Overlying sternal wires are partially imaged. There is small amount of fluid adjac ent to the anterior inferior pericardium. LIVER/GB: No significant abnormality is appreciated. PANCREAS: No significant abnormality is seen. SPLEEN: No significant abnormality is seen. ADRENALS: No significant abnormality is seen. KIDNEYS: There is 5.0 cm exophytic thin-walled cyst anteriorly from the right kidney. BOWEL: No significant abnormality is seen. PROSTATE/SEMINAL VESICLES: Enlarged prostate gland consistent with BPH. LYMPH NODES: No greater than 1cm abdominal or pelvic lymph nodes are appreciated. OSSEOUS STRUCTURES: No significant abnormality is seen. OTHER: No significant additional abnormality is seen. IMPRESSION: 1. Focal plaque at origin of right renal artery, stenosis near 50% is present. No hemodynamically sig nificant stenosis in the remainder of the runoff. 2. Enlarged prostate consistent with BPH. 3. At least small size asymmetric left pleural effusion. Correlate clinically.
== END | disposition home or self-care (01) ==
LOC: RADCTMAIN 11:58
PROVIDERS: ATTEND Family Medicine
DX: I73.9 Peripheral vascular disease, unspecified (principal); I70.0 Atherosclerosis of aorta; N40.0 Benign prostatic hyperplasia without lower urinary tract symptoms; J90 Pleural effusion, not elsewhere classified
CPT/HCPCS: 82565; 84520; 75635; 36415; Q9967

== ENCOUNTER → 2024-04-25 | Outpatient (CLI) | payer MEDICARE ==
[2024-04-25 15:47] LABS: ALT 13 U/L (10-49); AST 20 U/L (14-35); Chol/HDL Ratio 2.83 Ratio; LDL Cholesterol,Calculated 64.4 mg/dL (0.0-131.0)
== END | disposition home or self-care (01) ==
LOC: LABWHC1 07:53
PROVIDERS: ATTEND Internal Medicine Cardiovascular Disease
DX: E78.2 Mixed hyperlipidemia (principal)
CPT/HCPCS: 36415; 80061; 84450; 84460

== ENCOUNTER → 2025-02-20 | Outpatient (CLI) | payer MEDICARE ==
--- NOTE | 2025-02-20 10:51 | US ---
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 FINDINGS: MEASUREMENTS: RENAL SIZE: Right Kidney: 11.4x4.6x5.4cm Left Kidney: 11.4x4.6x5.4cm Right Kidney: two cystic areas noted: mid/medial pole measures 4.8x5.0x4.5cm mid/lateral pole cyst cluster vs complex cystic area measures 1.8x1.0x1.1cm Left Kidney: No hydronephrosis or lesions seen Abd Aorta: No AAA visualized, mild plaque RESISTANCE INDEX Right: 0.7 Left: 0.7 RA/AO RATIO (< 3.5 ) Right: 4.9 Left: 1.9 RENAL ARTERY VELOCITY ( < 180 cm/s) Right: 365.1 Left: 139.4 [employer] Vault Notes: Significant stenosis at the right renal artery origin which is correlative with p rior CTA. Other findings as above. Grayscale imaging of the kidneys and show no evidence for hydronephrosis or mass. No renal calculi or cysts visualized. IMPRESSION: 1. Elevated right renal origin velocity with elevated renal artery aortic ratio. Consistent with rig ht renal artery stenosis at the origin as seen on prior CTA. 2. Simple right renal cysts corresponding to prior CTA. [facility], , 02/20/2025 10:49 AM
== END | disposition home or self-care (01) ==
LOC: RADUSWWP 08:52
PROVIDERS: ATTEND Family Medicine
DX: N28.1 Cyst of kidney, acquired (principal); I70.201 Unspecified atherosclerosis of native arteries of extremities, right leg
CPT/HCPCS: 93975

== ENCOUNTER → 2025-03-05 | Outpatient (CLI) | payer MEDICARE ==
--- NOTE | 2025-03-05 10:05 | US ---
EXAMINATION TYPE: US prostate transrectal DATE OF EXAM: 03/05/2025 COMPARISON: NONE CLINICAL INDICATION: Male, 69 years old with history of R9720 ELEVATED PSA; TECHNIQUE: Grayscale and color Doppler imaging of the prostate gland. This examination was performed using the transrectal probe. EXAM MEASUREMENTS: Gland Size: 4.8 X 3.5 X 5.3 Volume: 46.4 Predicted PSA: 5.6 Actual PSA (if available):4.6 IMPRESSION: 1. No suspicious masses visualized. 2. Note that prostate MRI is a more sensitive exam for the detection of clinically significant prost ate adenocarcinoma. Predicted PSA = volume x 0.12 ng/ml = 5.6 Calculated Volume = 0.5236 x L x W x H = 46.4 [facility], , 03/05/2025 10:02 AM
== END | disposition home or self-care (01) ==
LOC: RADUSWWP 09:27
PROVIDERS: ATTEND Family Medicine
DX: R97.20 Elevated prostate specific antigen [PSA] (principal)
CPT/HCPCS: 76872